=== PATIENT | female | born 1955 | race African-American/Black ===

== ENCOUNTER 2019-08-09 09:21 | Outpatient (CLI) | payer BC, SELFPAY ==
--- NOTE | 2019-08-09 09:40 | USCV_ITS ---
Ivone Tejeda Age: 64 Gender: F : 1955 Exam Date: 08/09/2019 09:55 Ordering Phys: Adri Cortes MD ([email or web address]) Technologist: Brinda Rose Exam Location: [facility] – [place] Indication: ASYMPTOMATIC BILATERAL CAROTID STENOSIS Risk Factors: Previous Vascular Surgery: None Right Brachial BP: / Left Brachial BP: / Right Left Velocity (cm/s) Spectral Plaque Velocity (cm/s) Spectral Plaque Syst/Diast Broadening Syst/Diast Broadening 78.30/ 14.30 Prox CCA 91.70 / 17.70 57.50/ 16.30 Mid CCA 60.50 / 13.10 88.85/ 21.80 Distal CCA 53.20 / 13.80 90.30/ 18.30 Prox ICA 95.70 / 28.10 90.30/ 25.40 Mid ICA 126.90/ 41.00 106.90/38.20 Distal ICA 80.60 / 31.70 109.00 ECA 114.70 1.86 ICA/CCA 2.10 Antegrade Vertebral Antegrade 60.50/ 17.10 cm/s 40.70/ 13.10 cm/s Tri Subclavian Bi 69.10 68.30 FINDINGS Moderate to heavy heterogeneous plaques the right bifurcation and proximal internal carotid carotid artery Moderate diffuse plaques of the left bifurcation and internal carotid artery Mild diffuse plaques in the common carotid arteries bilaterally Antegrade flow in the vertebral arteries bilaterally Normal Doppler flow velocities in external carotid arteries bilaterally CONCLUSIONS Moderate to heavy heterogeneous s plaques at the right bifurcation and proximal internal carotid artery with velocity elevation, consistent with a 16 to 49% stenosis Moderate to heavy heterogeneous plaques at the left bifurcation and internal carotid artery with velocity elevation, consistent with 50 to 79% stenosis Mild diffuse plaques in the common carotid arteries bilaterally. Compared to study from 03/29/2018, there may not be a significant change Dr Adri Cortes MD [facility] (Electronically Signed) Final Date: 10 August 2019 10:02 S
== END 2019-08-09 09:22 | disposition home or self-care (01) ==
LOC: RAD 09:26
PROVIDERS: Family Provider Internal Medicine; PCP Nurse Practitioner Family; Visit Provider Internal Medicine Cardiovascular Disease
DX: I65.23 Occlusion and stenosis of bilateral carotid arteries (principal)
CPT/HCPCS: 93880

== ENCOUNTER 2019-09-16 06:58 | Outpatient (RCR) | payer BC, SELFPAY ==
[2019-09-16] VITALS (12 sets, daily range): BP systolic 139–172; BP diastolic 78–104; PULSE 98–105; RESP 18; TEMP 35.6–36.9; O2SAT 100; BMI 29.0
== END 2019-10-01 23:59 | disposition home or self-care (01) ==
LOC: GILAB 06:58
PROVIDERS: Family Provider Internal Medicine; PCP Nurse Practitioner Family; Visit Provider Nurse Practitioner Family
DX: D64.9 Anemia, unspecified (principal)
CPT/HCPCS: 36415; 36430; 86850; 86900; P9016

== ENCOUNTER 2019-10-06 08:13 | Day surgery (SDC) | payer BC, SELFPAY ==
[2019-10-05 11:18] VITALS: BMI 29.0
--- NOTE | 2019-10-06 08:25 | ANES.PREANE2 ---
Pre-Anesthetic Assessment Pre-Anesthetic Assessment: Height/Weight: Height 1.68 m Weight 81.647 kg Preop Diagnosis: Anemia Proposed Procedure: Operation Date: 10/06/19 10:00 Proposed Procedures p EGD/COLON(Not Applicable) - Galen Malave MD s Colonoscopy(Not Applicable) - Galen Malave MD Was Beta Ester taken within 24 hours: Yes (scheduled to take in preop) Last Intake: 23:59 Social: Packs per day: 1/2 Pack years: 10 Comment: quit 41y of age Exam: Pre-Anes Outpt Exam: alert, oriented x 3, clear to auscultation bilaterally and regular rate & rhythm Airway: Submandibular: WNL Cervical ROM: WNL MP: 2 Dentition: Partials CV/HEM: CV/HEM: CAD, HTN and PVD Comments: rx'd x 10y stent x 2 , last last nrdrqu26/19 negative < 2 blocks to claudication in legs : Comments: proteinuria GI: GI: Hiatus hernia Metabolic: Metabolic: DM Comments: rx'd 15y, normally 170-200 Anesthetic Plan: ASA status: 3 Anesthesia: MAC PFSH Anesthesia PFSH: Social History Smoking and tobacco status: former smoker Second hand smoke exposure: No Alcohol intake: never Adopted: No Caregiver/support person: Yes Lives independently: Yes Household members: none Housing: House Marital status: Single service: No Current occupational status: disabled Current occupational exposures/hazards: No Pets and animals: No History of recent travel: No Sexually active: No Current gender identity: Female Chelita/Hindu: None Special chelita needs: No Agree to transfusion: No Financial difficulty paying for basics: Decline to Answer Data Anesthesia Cardiac Studies: No Data to Display
[2019-10-06 09:20] VITALS: BP 170/112; PULSE 81; RESP 20; TEMP 36.1; O2SAT 100
[2019-10-06] MEDS: sodium chloride 0.9% 1,000 ML 30 ML (09:23)
[2019-10-06 09:27] LABS: Glucose Point of Care 165 mg/dL (70-110)
--- NOTE | 2019-10-06 09:59 | W.PM.OPSUD ---
Surgery/Procedure H&P Update DATE OF PROCEDURE: October 06, 2019 DATE H&P PERFORMED: 10/04/19 H&P UPDATE INFORMATION: I have reviewed H&P completed within last 30 days, I have examined patient prior to procedure and No changes to prior documentation PREOP DIAGNOSIS: Anemia PLANNED PROCEDURE: Operation Date: 10/06/19 10:00 Proposed Procedures p EGD/COLON(Not Applicable) - Galen Malave MD s Colonoscopy(Not Applicable) - Galen Malave MD
[2019-10-06 10:46] VITALS: BP 152/84; PULSE 92; RESP 16; TEMP 36.4; O2SAT 94
--- NOTE | 2019-10-06 10:49 | ANE.PACU2 ---
 Inpatient post-anesthesia follow up: Airway intact: Yes Vital signs: Temperature 97.6 F Pulse Rate 92 Respiratory Rate 16 Blood Pressure 152/84 Pulse Oximetry 94 Oxygen Delivery Me thod Nasal Cannula Oxygen Flow Rate 2 Fraction of Inspir ed Oxygen Hydration adequate: Yes Nausea and vomiting: No Pain level: 1 Additional Comments: Pt to take morning HTN meds as soon as she gets home.
[2019-10-06 10:57] VITALS: BP 133/78; PULSE 84; RESP 16; O2SAT 99
== END 2019-10-06 11:05 | disposition home or self-care (01) ==
PROVIDERS: Family Provider Internal Medicine; PCP Internal Medicine; Visit Provider Surgery
PROC: 0DJ08ZZ Inspection of Upper Intestinal Tract, Via Natural or Artificial Opening Endoscopic (ICD-10-PCS; CPT 43235; principal; 2019-10-06 10:00)
PROC: 0DJD8ZZ Inspection of Lower Intestinal Tract, Via Natural or Artificial Opening Endoscopic (ICD-10-PCS; CPT 45378; 2019-10-06 10:00)
DX: D50.9 Iron deficiency anemia, unspecified (principal); Z79.82 Long term (current) use of aspirin; E13.9 Other specified diabetes mellitus without complications; Z79.84 Long term (current) use of oral hypoglycemic drugs; E78.2 Mixed hyperlipidemia; I10 Essential (primary) hypertension; Z95.1 Presence of aortocoronary bypass graft; Z82.49 Family history of ischemic heart disease and other diseases of the circulatory system; Z87.891 Personal history of nicotine dependence; I25.10 Atherosclerotic heart disease of native coronary artery without angina pectoris
CPT/HCPCS: 12345; 36416; 43235; 45378; 82962; J2704; J7030

== ENCOUNTER 2019-11-03 12:55 | Outpatient (CLI) | payer BC, SELFPAY ==
[2019-11-03 15:15] LABS: Basophils # 0.1 10^3/uL (0.0-0.1); Basophils % 1.2 %; Eosinophils # 0.2 10^3/uL (0.0-0.8); Eosinophils % 3.3 %; Hematocrit 31.5 % (37.0-47.0); Hemoglobin 8.8 g/dL (11.5-15.3); Lymphocytes % 31.2 %; Mean Corpuscular HGB Conc 27.9 g/dL (30.0-36.0); Mean Corpuscular Hemoglobin 20.5 pg (28.0-34.0); Mean Corpuscular Volume 73.4 fL (81-99); Mean Platelet Volume 9.4 fL (7.4-10.4); Monocytes # 0.4 10^3/uL (0.2-0.9); Monocytes % 6.4 %; Neutrophils # 3.7 10^3/uL (1.8-7.7); Neutrophils % 57.7 %; Nucleated Red Blood Cells % 0 %; Platelet Count 377 10^3/cmm (130-400); Red Blood Count 4.29 10^6/uL (4.1-5.3); Red Cell Distribution Width 20.8 % (12.1-15.1); White Blood Count 6.5 10^3/uL (4.0-10.0)
[2019-11-03 15:26] LABS: Alanine Aminotransferase 25 U/L (0-33); Albumin Level 4.3 g/dL (3.5-5.2); Alkaline Phosphatase 74 IU/L (35-105); Anion Gap 17.7 (5-19); Aspartate Amino Transferase 43 U/L (0-32); Blood Urea Nitrogen 13 mg/dL (8-23); Calcium 9.9 mg/dL (8.5-10.5); Carbon Dioxide 23 mmol/L (22-29); Chloride 100 mmol/L (98-107); Ferritin 10 ng/mL (15-150); Globulin 3.3 g/dL (1.3-4.6); Glomerular Filtration Rate 87.7 mL/min (90-130); Glucose 128 mg/dL (65-115); Iron 19 ug/dL (37-145); Osmolality Calculated 282 mOsm/kg (285-295); Percent Saturation 4.7 % (20-50); Potassium 3.7 mmol/L (3.5-5.1); Sodium 137 mmol/L (136-145); Total Bilirubin 0.3 mg/dL (0.15-1.2); Total Iron Binding Capacity 399 mcg/dl; Total Protein 7.6 g/dL (6.6-8.7); Unsaturated Iron Binding 380 ug/dL (112-347)
--- NOTE | 2019-11-03 16:07 | ONC CON_ITS ---
Dr. Tolentino New Patient Note Patient: Ivone Tejeda Unit #: [id number]: 1955 Dicatated By: Tiago Tolentino M.D.Date of Visit: Nov 03, 2019 Onc MED New Patient/Consult Referring Physician: Dr. GREGORY MALAVE M.D. Chief Complaint: Anemia. History of Present Illness: This is a 64 year-old woman with iron deficiency anemia. This patient has multiple medical illnesses including hypertension, hyperlipidemia, type 2 diabetes, coronary artery disease, and peripheral arterial disease. She has had varying degrees of anemia dating back to at least 2008, though several blood counts available in [facility] prior to that were normal. In 2017 her anemia was severe enough that she required transfusion. Her EGD and colonoscopy were negative at that time. At some point she also was evaluated in [place] with capsule endoscopy and subsequent to that procedure she had undergone EGD with cauterization for a possible bleeding source in the duodenum. On a follow-up visit with Dr. Rod in September 2019, her hemoglobin had dropped back down to 7.0 g. The red cell indices were hypochromic/microcytic. She was again transfused with 2 units PRBC. She reportedly had a positive stool Hemoccult. She was then seen by Dr. Malave and she had repeat EGD and colonoscopy on 10/06/2019. There were again no abnormalities noted. At some point she had also been evaluated with [place] with capsule endoscopy and subsequent to that procedure she had undergone cauterization of a lesion in the duodenum. She complains that she has no get up and go. She is still able to do light work, though. Her ECOG score is 1. She says her appetite has increased lately, but her weight has been stable. She does not have fever or night sweats. She has had some allergy related sinus symptoms and she says her throat feels funny. She has no shortness of breath, cough, or chest pain. Recently she had some heartburn and she felt very gassy, but those symptoms have improved. She has had some ongoing problems with constipation. She has had very poor tolerance for oral iron. She also has been having some discomfort in the rectal area. She has not been aware of any blood in the stool. She has no complaints with bladder function. She occasionally has aching in her joints. She reports having occasional headache. She has a little tingling on the bottoms of her feet. Past Medical History: Her medical history includes bilateral carotid stenosis, coronary artery disease, hyperlipidemia, hypertension, peripheral arterial disease, type II diabetes, and history of TIA in 2006. Past Surgical History: Her surgical/procedural history includes capsule endoscopy and duodenal cauterizaton procedure, EGD and colonoscopy in 2017 and 2019, tubal ligation, radiofrequency ablation of the right great saphenous vein in 2016, coronary angioplasty/stent placement in 2008, and hysterectomy with unilateral oophorectomy in 1983. Medications: Aspirin 1 Tablet (of 81 mg) Oral daily, Biotin 1 Tablet (of 86649 mcg) Oral daily, Byetta 10 MCG Pen 10 mcg (of 10 mcg/0.04mL) Subcutaneous b.i.d., Cilostazol 1 Tablet (of 100 mg) Oral b.i.d., Levocetirizine Dihydrochloride 1 Tablet (of 5 mg) Oral daily, Losartan Potassium 1 Tablet (of 100 mg) Oral daily, metFORMIN HCl 1 Tablet (of 1000 mg) Oral b.i.d., Metoprolol Tartrate 1 Tablet (of 25 mg) Oral b.i.d., Multivitamin Adult 1 Tablet Oral daily, Simvastatin 1 Tablet (of 40 mg) Oral at bedtime Allergies: buPROPion HCl, Januvia, and Lisinopril. Social History: Ms. Tejeda is and she is retired. She has a history of smoking for about 10 years, from 1/2 to 1 pack of cigarettes daily. She quit smoking 25 years ago. She does not drink alcohol. Family History: Father of heart attack at age 70. Mother with lung disease at age 65. A brother of lung cancer at age 60. Another brother in a motor vehicle accident. She has 1 other brother who is still living. Her daughter has diabetes. Review Of Symptoms: Constitutional - Her energy level is low. 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 Her appetite has recently increased but her weight is stable. No fever, chills, hot flashes, or night sweats. ECOG score is 1, Eyes - No change in vision, ENMT - She has not had hearing loss, but she does have tinnitus. She has occasional sinus congestion/drainage. She has seasonal allergies and sore throat. No mouth sores. No difficulty swallowing, Hematologic/Lymphatic - No abnormal bruising, Respiratory - No shortness of breath. No cough. No pleuritic pain or hemoptysis, Cardiovascular - No angina pain. No palpitations, Gastrointestinal - No nausea or vomiting. She had some heartburn a few weeks ago along with some bloating. No diarrhea. She has constipation. No blood in the stool or black stools, Genitourinary (F) - No dysuria or hematuria. No urinary frequency. No urgency or incontinence, Musculoskeletal - She has some occasional aching in her joints, Integumentary - No skin complications, Neurologic - She has occasional headaches. No dizziness. She has some tingling on the bottoms of her feet, Psychiatric - No anxiety. She has some mild depression. She is not currently taking anything for this. She has some occasional insomnia. Vital Signs: Performed on Nov 03, 2019 14:10: 0, 28.50, 1.90 sq.m, 66.00 in, 100 %, 89 /min, 18 /min, 132/77 mm(hg), 97.6 F (LOW), and 176.6 lbs (HIGH). Physical Examination: Constitutional - She appears to be in good general health, Eyes - Sclerae nonicteric. Conjunctivae clear, ENMT - No lesions noted in the oral cavity, Neck - No mass or thyromegaly, Hematologic/Lymphatic - No cervical, clavicular, or axillary adenopathy, Respiratory - Lungs are clear with good air movement bilaterally, Cardiovascular - Heart rhythm is regular. There is a I/ systolic murmur. There is no gallop or rub noted, Abdomen - Soft and non-tender. Liver and spleen are not enlarged. There is no abdominal mass or ascites noted and there is no inguinal adenopathy, Genitalia/Groin/Buttock (F) - Rectal exam shows some small, noninflamed external hemorrhoids. There is no rectal mass noted, Back/Spine - No spine or CVA tenderness noted, Extremities - No edema. Dorsalis pedis pulses are palpable bilaterally, Integumentary - No rashes. No suspicious skin lesions noted, Neurologic - No focal neurologic deficits noted. Impression: 1. Patient with iron deficiency anemia. She reportedly has heme positive stool, so at least some component does appear to be due to GI blood loss. It is uncertain to what extent and adequate oral iron absorption may also be contributing. She does have poor tolerance for oral iron supplements. 2. There has been no documented source for GI blood loss by EGD/colonoscopy or by capsule endoscopy. Her other medical illnesses include: 3. Hypertension. 4. Hyperlipidemia. 5. Type 2 diabetes. 6. Coronary artery disease with previous angioplasty/stent placement. 7. Bilateral carotid stenosis. 8. Peripheral arterial disease. 9. She has a history of TIA in 2006. Plan: The laboratory findings and clinical implications were reviewed with the patient. She has iron deficiency anemia, most likely due to GI blood loss. It is uncertain to what extent inadequate oral iron absorption may also be contributing, but in any case she has poor tolerance for oral iron supplements and she has been unable to correct the iron deficiency with oral iron replacement. As such, she will be given parenteral iron replacement with 2 infusions of Injectafer, subject to verification of insurance coverage. I will check baseline CBC and serum iron studies today and I will plan to schedule I month follow-up labs following completion of the parenteral iron replacement. Signed By: Tiago Tolentino M.D. <<Signature on File>>
== END 2019-11-03 12:56 | disposition home or self-care (01) ==
LOC: ONCMED 12:57
PROVIDERS: Internal Medicine Medical Oncology; Family Provider Internal Medicine; PCP Internal Medicine; Referring Provider Surgery; Visit Provider Internal Medicine Hematology & Oncology
DX: D50.9 Iron deficiency anemia, unspecified (principal); I10 Essential (primary) hypertension; E78.5 Hyperlipidemia, unspecified; E11.51 Type 2 diabetes mellitus with diabetic peripheral angiopathy without gangrene; I25.10 Atherosclerotic heart disease of native coronary artery without angina pectoris; E11.42 Type 2 diabetes mellitus with diabetic polyneuropathy; I65.23 Occlusion and stenosis of bilateral carotid arteries; Z79.82 Long term (current) use of aspirin; Z79.4 Long term (current) use of insulin; Z79.899 Other long term (current) drug therapy; Z95.5 Presence of coronary angioplasty implant and graft; Z87.891 Personal history of nicotine dependence; Z86.73 Personal history of transient ischemic attack (TIA), and cerebral infarction without residual deficits; Z90.710 Acquired absence of both cervix and uterus
CPT/HCPCS: 36415; 80053; 82728; 83540; 83550; 85025; 99205

== ENCOUNTER 2019-11-09 13:41 | Outpatient (CLI) | payer BC, SELFPAY ==
[2019-11-09] MEDS: sodium chloride 0.9% 100 ML 400 ML (14:10)
== END 2019-11-09 13:42 | disposition home or self-care (01) ==
PROVIDERS: Family Provider Internal Medicine; PCP Internal Medicine; Visit Provider Internal Medicine Medical Oncology
DX: D50.9 Iron deficiency anemia, unspecified (principal)
CPT/HCPCS: 96365; J1439

== ENCOUNTER 2019-11-16 07:13 | Outpatient (RCR) | payer BC, SELFPAY ==
[2019-11-16] MEDS: ferric carboxy (PYXIS) 750 mg/15 mL INJ IV (16:05)
[2019-11-16] MEDS: sodium chloride 0.9% 100 ML 200 ML IV (16:05)
== END 2019-12-01 23:59 | disposition home or self-care (01) ==
LOC: ONCMED 07:13
PROVIDERS: Family Provider Internal Medicine; PCP Internal Medicine; Visit Provider Internal Medicine Medical Oncology
DX: D50.9 Iron deficiency anemia, unspecified (principal); I65.23 Occlusion and stenosis of bilateral carotid arteries; I25.10 Atherosclerotic heart disease of native coronary artery without angina pectoris; E78.5 Hyperlipidemia, unspecified; I10 Essential (primary) hypertension; I73.9 Peripheral vascular disease, unspecified; E11.9 Type 2 diabetes mellitus without complications
CPT/HCPCS: 96365; J1439

== ENCOUNTER 2019-12-23 06:46 | Outpatient (RCR) | payer BC, SELFPAY ==
[2019-12-22 10:14] LABS: Basophils % 0.9 %; Eosinophils # 0.1 10^3/uL (0.0-0.8); Eosinophils % 1.9 %; Hematocrit 40.1 % (37.0-47.0); Hemoglobin 11.9 g/dL (11.5-15.3); Lymphocytes # 1.3 10^3/uL (0.8-4.8); Lymphocytes % 30.9 %; Mean Corpuscular HGB Conc 29.7 g/dL (30.0-36.0); Mean Corpuscular Hemoglobin 25.5 pg (28.0-34.0); Mean Corpuscular Volume 86.1 fL (81-99); Mean Platelet Volume 9.4 fL (7.4-10.4); Monocytes # 0.2 10^3/uL (0.2-0.9); Monocytes % 4.9 %; Neutrophils # 2.6 10^3/uL (1.8-7.7); Neutrophils % 61.2 %; Nucleated Red Blood Cells % 0 %; Platelet Count 297 10^3/cmm (130-400); Red Blood Count 4.66 10^6/uL (4.1-5.3); Red Cell Distribution Width 26.1 % (12.1-15.1); White Blood Count 4.3 10^3/uL (4.0-10.0)
[2019-12-22 10:28] LABS: Ferritin 230 ng/mL (15-150); Iron 53 ug/dL (37-145); Percent Saturation 18.5 % (20-50); Total Iron Binding Capacity 286 mcg/dl; Unsaturated Iron Binding 233 ug/dL (112-347)
== END 2020-01-01 23:59 | disposition home or self-care (01) ==
LOC: ONCMED 06:46
PROVIDERS: PCP Internal Medicine; Visit Provider Internal Medicine Medical Oncology
DX: D50.9 Iron deficiency anemia, unspecified (principal)
CPT/HCPCS: 36415; 82728; 83540; 83550; 85025

== ENCOUNTER 2020-01-09 05:51 | Outpatient (RCR) | payer BC, SELFPAY ==
[2020-01-09 12:27] LABS: Basophils % 0.9 %; Eosinophils # 0.1 10^3/uL (0.0-0.8); Hemoglobin 11.8 g/dL (11.5-15.3); Lymphocytes # 1.5 10^3/uL (0.8-4.8); Lymphocytes % 33.7 %; Mean Corpuscular HGB Conc 30.3 g/dL (30.0-36.0); Mean Corpuscular Hemoglobin 26.6 pg (28.0-34.0); Mean Corpuscular Volume 87.8 fL (81-99); Monocytes # 0.2 10^3/uL (0.2-0.9); Monocytes % 5.4 %; Neutrophils # 2.6 10^3/uL (1.8-7.7); Nucleated Red Blood Cells % 0 %; Platelet Count 287 10^3/cmm (130-400); Red Blood Count 4.44 10^6/uL (4.1-5.3); White Blood Count 4.5 10^3/uL (4.0-10.0)
[2020-01-09 12:57] LABS: Ferritin 156 ng/mL (15-150); Iron 47 ug/dL (37-145); Percent Saturation 19.3 % (20-50); Total Iron Binding Capacity 243 mcg/dl; Unsaturated Iron Binding 196 ug/dL (112-347)
--- NOTE | 2020-01-09 14:19 | ONC FU_ITS ---
[facility] Patient Note Patient: Ivone Tejeda Unit #: [id number]: 1955 Dictated By: Pierre LindaDate of Visit: Jan 09, 2020 Onc MED Follow-Up/Prog Note Chief Complaint: Anemia. History of Present Illness: Ms Tejeda is a 64 year-old woman with iron deficiency anemia. She has multiple medical illnesses including hypertension, hyperlipidemia, type 2 diabetes, coronary artery disease, and peripheral arterial disease. She has had varying degrees of anemia dating back to at least 2008, though several blood counts available in [facility] prior to that were normal. In 2017 her anemia was severe enough that she required transfusion. Her EGD and colonoscopy were negative at that time. At some point she also was evaluated in [place] with capsule endoscopy and subsequent to that procedure she had undergone EGD with cauterization for a possible bleeding source in the duodenum. On a follow-up visit with Dr. Rod in September 2019, her hemoglobin had dropped back down to 7.0 g. The red cell indices were hypochromic/microcytic. She was again transfused with 2 units PRBC. She reportedly had a positive stool Hemoccult. She was then seen by Dr. Malave and she had repeat EGD and colonoscopy on 10/06/2019. There were again no abnormalities noted. At some point she had also been evaluated with [place] with capsule endoscopy and subsequent to that procedure she had undergone cauterization of a lesion in the duodenum. Ms. Tejeda was seen in November 2019. She presented with significant fatigue and some shortness of breath. She was noted to be iron deficient and anemic. Her hemoglobin at that time was 8.8 with hematocrit of 31.5. Her iron saturation was 4.7%, ferritin was 10 and iron level was 19. She was given 2 units of Injectafer 1 week apart. Follow-up labs on December 22, 2019 revealed a hemoglobin of 11.9 and her iron studies had also improved. Her saturation was 18.5% ferritin was 230 and iron was 53. She tolerated the Injectafer well. Ms. Tejeda is here today for a 2-month follow-up. She states overall she is feeling really good. She is had no shortness of breath. She denies any cravings. She states in the past she is craving ice significantly but since I started seeing Dr. Tolentino that has stopped . She denies any worsening fatigue. She states her actually her energy is some better. She has had no chest pain orthopnea. She states she is able to do things around the house. Her appetite is good. Her ECOG is 0. Past Medical History: Bilateral carotid stenosis Coronary artery disease Hyperlipidemia Hypertension Peripheral arterial disease Type II diabetes History of TIA in 2006 Past Surgical History: Capsule endoscopy and duodenal cauterizaton procedure EGD and colonoscopy in 2017 and 2019 Tubal ligation Radiofrequency ablation of the right great saphenous vein in 2016 Coronary angioplasty/stent placement in 2008 Hysterectomy with unilateral oophorectomy in 1983 Allergies: buPROPion HCl, Januvia, and Lisinopril. Medications: Aspirin 1 Tablet (of 81 mg) Oral daily Biotin 1 Tablet (of 59332 mcg) Oral daily Byetta 10 MCG Pen 10 mcg (of 10 mcg/0.04mL) Subcutaneous b.i.d. Cilostazol 1 Tablet (of 100 mg) Oral b.i.d. Levocetirizine Dihydrochloride 1 Tablet (of 5 mg) Oral daily Losartan Potassium 1 Tablet (of 100 mg) Oral daily Metoprolol Tartrate 1 Tablet (of 25 mg) Oral b.i.d. Multivitamin Adult 1 Tablet Oral daily Simvastatin 1 Tablet (of 40 mg) Oral at bedtime Family History: Ms. Tejeda's mother at age 65: lung disease. Ms. Tejeda's father at age 70: coronary artery disease, and hypertension, and myocardial infarction. Ms. Tejeda has 1 brother who is : lung cancer. Father of heart attack at age 70. Mother with lung disease at age 65. A brother of lung cancer at age 60. Another brother in a motor vehicle accident. She has 1 other brother who is still living. Her daughter has diabetes. Social History: Ms. Tejeda is single and she is retired. Ms. Tejeda quit smoking 25 years ago but had smoked for 12 years. She has no history of drinking. Ms. Tejeda reports the following support systems: lives alone, supportive family/friends willing to assist with needs, and adequate transportation available for expected visits. Her diet consists of regular meals. She indicates her activity level as: regular exercise. She has a history of smoking for about 10 years, from 1/2 to 1 pack of cigarettes daily. She quit smoking 25 years ago. She does not drink alcohol. Review Of Symptoms: Constitutional Denies fevers, chills, night sweats, excessive fatigue or weight loss. Allergic/Immunologic No reactions. Eyes Denies significant visual changes. No diplopia. No amaurosis. Hematologic/Lymphatic Denies easy bruising or bleeding. The patient denies any tender or palpable lymph nodes. Respiratory Denies dyspnea on exertion, chest pain, cough or hemoptysis. Denies orthopnea. Cardiovascular Denies anginal chest pain, palpitations or orthopnea. Gastrointestinal Denies nausea, vomiting, diarrhea, GI bleeding, or constipation. Denies change in bowel habits and/or stool color, no heartburn or early satiety. Genitourinary (F) No hematuria, hesitancy, incontinence, vaginal bleeding, discharge or other problems with urination. Musculoskeletal Denies joint pain, swelling or redness. No decreased range of motion. Integumentary Denies chronic rashes, inflammation, ulcerations or skin changes. Neurologic Denies headache, blurred vision, and no areas of focal weakness or numbness. Normal gait. No sensory problems. Psychiatric Denies insomnia, depression, amish or mood swings. Vital Signs: Performed on Jan 09, 2020 13:27 Height - 66.00 in Weight - 175.2 lbs (LOW) BSA - 1.89 sq.m BMI - 28.28 Temperature - 98.2 F (LOW) Pulse - 82 /min Respiration - 18 /min BP - 133/82 mm(hg) O2 Sat - 98 % Pain - 0,0 - Fully active, able to carry on all predisease activities without restrictions. (ECOG) Physical Examination: Constitutional Alert, oriented, no acute distress. Skin pink, warm and dry. Head Normocephalic; atraumatic. Eyes Conjunctivae and sclerae are clear and without icterus. Pupils are reactive and equal. Neck Supple without masses or thyromegaly. No jugular venous distension. Hematologic/Lymphatic No petechiae or purpura. No tender or palpable lymph nodes in the cervical or supraclavicular areas. Respiratory Lungs are clear to auscultation without rhonchi or wheezing. Cardiovascular Regular rate and rhythm of heart without murmurs,clicks, gallops or rubs. Back/Spine Non-tender to palpation. Extremities No visible deformities, no cyanosis, clubbing or edema. Musculoskeletal No tenderness or swelling, normal range of motion without obvious weakness. Integumentary No rashes or lesions. Neurologic No sensory or motor deficits, normal cerebellar function, normal gait. Psychiatric Alert and oriented times three. Coherent speech. Verbalizes understanding of our discussions today. Laboratory:Test performed on Jan 09, 2020 12:05 Ferritin 156 ng/mL Iron 47 mcg/dL Iron Binding Capacity (TIBC) 243 mcg/dl % Iron Saturation 19.3 % UIBC 196 mcg/dL WBC 4.5 10 3/uL RBC 4.44 10 6/uL HGB 11.8 g/dL HCT 39.0 % MCV 87.8 fL MCH 26.6 pg MCHC 30.3 g/dL RDW 22.0 % Platelet Count 287 10 3/cmm MPV 10.0 fL Neutrophils 2.6 10 3/uL Lymphocytes 1.5 10 3/uL Monocytes 0.2 10 3/uL Eosinophils 0.1 10 3/uL Basophils 0.0 10 3/uL Neutrophil % 58.0 % Lymphocyte % 33.7 % Monocyte % 5.4 % Eosinophil % 2.0 % Basophils % 0.9 % NRBC 0.0 /100WBC NRBC % 0 % Test performed on Nov 03, 2019 14:45 Sodium 137 mmol/L Potassium 3.7 mmol/L Chloride 100 mmol/L CO2 23 mmol/L Anion Gap 17.7 BUN 13 mg/dL Creatinine 0.8 mg/dL Cr Clearance (Est) 91.0200 mL/min eGFR 87.7 mL/min Glucose 128 mg/dL Calcium 9.9 mg/dL Protein, Total 7.6 g/dL Albumin 4.3 g/dL Globulin 3.3 g/dL Bilirubin, Total 0.3 mg/dL ALT (SGPT) 25 U/L AST (SGOT) 43 U/L Alkaline Phosphatase 74 IU/L Impression: 1. Patient with iron deficiency anemia. She reportedly has heme positive stool, so at least some component does appear to be due to GI blood loss. It is uncertain to what extent and adequate oral iron absorption may also be contributing. She does have poor tolerance for oral iron supplements. 2. There has been no documented source for GI blood loss by EGD/colonoscopy or by capsule endoscopy. Her other medical illnesses include: 3. Hypertension. 4. Hyperlipidemia. 5. Type 2 diabetes. 6. Coronary artery disease with previous angioplasty/stent placement. 7. Bilateral carotid stenosis. 8. Peripheral arterial disease. 9. She has a history of TIA in 2006. In November 2019 she was found to be iron deficient anemic once again. She received 2 doses of Injectafer 1 week apart. Her labs from December did show correction of the iron deficiency anemia. She tolerated it well. Her hemoglobin remained stable at 11.8 and her iron studies are normal as well. She will continue on observation. Plan: 1. Iron decificeny is currently corrected, but there is some trend down on her Ferritin and Iron levels. Her iron sat is stable @ 19.3%. 2. Today's labs were reviewed in detail and discussed with Ms. Tejeda and a copy was given to her. WBC was 4.5, hemoglobin 11.8, platelets 287,000 ANC is 2600. Iron saturation was 19.3%, ferritin was 156 iron was 47. 3. Ms. Tejeda states that her symptoms of the iron deficiency have been significant fatigue and mildly short of breath. She states she can generally tell when that her labs are starting to drop. 4. We will plan to recheck CBC CMP (her AST was 43 on November 03, 2019 draw), and iron studies to include ferritin and TIBC in 1 month. She will not need follow-up at that time unless symptoms or problems arise in the interim. 5. We will plan to see her back in 2 months with a CBC CMP and iron studies. 6. Ms. Tejeda has been advised to contact us in the interim should she feel that she is starting to have any iron deficiency/anemic symptoms. We will be glad to check her at any time. She was encouraged to call if she has any problems or concerns. Signed By: Pierre Linda-BARRON, AOAMILCAR Tolentino MD <<Signature on File>>
== END 2020-01-31 23:59 | disposition home or self-care (01) ==
LOC: ONCMED 05:51
PROVIDERS: PCP Internal Medicine; Visit Provider Internal Medicine Medical Oncology
DX: D50.9 Iron deficiency anemia, unspecified (principal); I10 Essential (primary) hypertension; E78.5 Hyperlipidemia, unspecified; E11.9 Type 2 diabetes mellitus without complications; I25.10 Atherosclerotic heart disease of native coronary artery without angina pectoris; I73.9 Peripheral vascular disease, unspecified; I65.23 Occlusion and stenosis of bilateral carotid arteries; Z86.73 Personal history of transient ischemic attack (TIA), and cerebral infarction without residual deficits
CPT/HCPCS: 36415; 82728; 83540; 83550; 85025; G0463

== ENCOUNTER 2020-02-10 09:55 | Outpatient (RCR) | payer BC, SELFPAY ==
[2020-02-10 10:18] LABS: Basophils # 0.1 10^3/uL (0.0-0.1); Basophils % 1.1 %; Eosinophils # 0.1 10^3/uL (0.0-0.8); Eosinophils % 2.3 %; Hematocrit 38.5 % (37.0-47.0); Hemoglobin 11.8 g/dL (11.5-15.3); Lymphocytes # 1.9 10^3/uL (0.8-4.8); Lymphocytes % 38.9 %; Mean Corpuscular HGB Conc 30.6 g/dL (30.0-36.0); Mean Corpuscular Hemoglobin 27.1 pg (28.0-34.0); Mean Corpuscular Volume 88.3 fL (81-99); Mean Platelet Volume 9.1 fL (7.4-10.4); Monocytes # 0.3 10^3/uL (0.2-0.9); Monocytes % 5.5 %; Neutrophils # 2.48 10^3/uL (1.8-7.7); Neutrophils % 52.2 %; Nucleated Red Blood Cells % 0 %; Platelet Count 294 10^3/cmm (130-400); Red Blood Count 4.36 10^6/uL (4.1-5.3); Red Cell Distribution Width 17.6 % (12.1-15.1); White Blood Count 4.8 10^3/uL (4.0-10.0)
[2020-02-10 10:29] LABS: Alanine Aminotransferase 66 U/L (0-33); Albumin Level 4.3 g/dL (3.5-5.2); Alkaline Phosphatase 102 IU/L (35-105); Anion Gap 14.1 (5-19); Aspartate Amino Transferase 82 U/L (0-32); Blood Urea Nitrogen 13 mg/dL (8-23); Calcium 10.2 mg/dL (8.5-10.5); Carbon Dioxide 25 mmol/L (22-29); Chloride 103 mmol/L (98-107); Globulin 3.5 g/dL (1.3-4.6); Glomerular Filtration Rate 87.7 mL/min (90-130); Glucose 216 mg/dL (65-115); Osmolality Calculated 289 mOsm/kg (285-295); Potassium 4.1 mmol/L (3.5-5.1); Sodium 138 mmol/L (136-145); Total Bilirubin 0.2 mg/dL (0.15-1.2); Total Protein 7.8 g/dL (6.6-8.7)
[2020-02-10 10:55] LABS: Ferritin 156 ng/mL (15-150); Iron 50 ug/dL (37-145); Percent Saturation 17.1 % (20-50); Total Iron Binding Capacity 291 mcg/dl; Unsaturated Iron Binding 241 ug/dL (112-347)
== END 2020-03-02 23:59 | disposition home or self-care (01) ==
LOC: ONCMED 09:55
PROVIDERS: PCP Internal Medicine; Visit Provider Nurse Practitioner
DX: D50.9 Iron deficiency anemia, unspecified (principal)
CPT/HCPCS: 80053; 82728; 83540; 83550; 85025

== ENCOUNTER 2020-03-13 06:11 | Outpatient (RCR) | payer BC, SELFPAY ==
[2020-03-13 09:39] LABS: Basophils # 0.1 10^3/uL (0.0-0.1); Basophils % 1.2 %; Eosinophils # 0.1 10^3/uL (0.0-0.8); Eosinophils % 2.1 %; Hematocrit 40.7 % (37.0-47.0); Hemoglobin 12.4 g/dL (11.5-15.3); Lymphocytes # 1.7 10^3/uL (0.8-4.8); Lymphocytes % 39.1 %; Mean Corpuscular HGB Conc 30.5 g/dL (30.0-36.0); Mean Corpuscular Volume 88.5 fL (81-99); Mean Platelet Volume 9.6 fL (7.4-10.4); Monocytes # 0.2 10^3/uL (0.2-0.9); Monocytes % 4.7 %; Neutrophils # 2.22 10^3/uL (1.8-7.7); Neutrophils % 52.7 %; Nucleated Red Blood Cells % 0 %; Platelet Count 263 10^3/cmm (130-400); Red Cell Distribution Width 14.4 % (12.1-15.1); White Blood Count 4.2 10^3/uL (4.0-10.0)
[2020-03-13 10:05] LABS: Alanine Aminotransferase 40 U/L (0-33); Albumin Level 4.1 g/dL (3.5-5.2); Alkaline Phosphatase 96 IU/L (35-105); Anion Gap 14.9 (5-19); Aspartate Amino Transferase 64 U/L (0-32); Blood Urea Nitrogen 16 mg/dL (8-23); Calcium 9.1 mg/dL (8.5-10.5); Carbon Dioxide 25 mmol/L (22-29); Chloride 102 mmol/L (98-107); Ferritin 135 ng/mL (15-150); Globulin 3.9 g/dL (1.3-4.6); Glomerular Filtration Rate 76.5 mL/min (90-130); Glucose 268 mg/dL (65-115); Iron 63 ug/dL (37-145); Osmolality Calculated 292 mOsm/kg (285-295); Percent Saturation 21.2 % (20-50); Potassium 3.9 mmol/L (3.5-5.1); Sodium 138 mmol/L (136-145); Total Bilirubin 0.3 mg/dL (0.15-1.2); Total Iron Binding Capacity 296 mcg/dl; Unsaturated Iron Binding 233 ug/dL (112-347)
--- NOTE | 2020-03-13 11:03 | ONC FU_ITS ---
Dr. Tolentino Patient Follow-Up Note Patient: Ivone Tejeda Unit #: [id number]: 1955 Dicatated By: Tiago Tolentino M.D.Date of Visit:Mar 13, 2020 Onc Med Follow-up/Prog Note Chief Complaint: Anemia. History of Present Illness: This is a 64 year-old woman with iron deficiency anemia. She has a known history of anemia. I had seen her initially on 11/03/2019. In reviewing her records, she had varying degrees of anemia dating back to at least 2008, though several blood counts available in [facility] prior to that had been normal. In 2017 her anemia was severe enough that she required transfusion. Her EGD and colonoscopy were negative at that time. On a follow-up visit with Dr. Rod in September 2019, her hemoglobin had dropped back down to 7.0 g. The red cell indices were hypochromic/microcytic. She was again transfused with 2 units PRBC. She reportedly had a positive stool Hemoccult. She was then seen by Dr. Malave and she had repeat EGD and colonoscopy on 10/06/2019. There were again no abnormalities noted. At some point she had also been evaluated with [facility] with capsule endoscopy and subsequent to that procedure she had undergone cauterization of a lesion in the duodenum. With her visit in November 2019 she was still significantly anemic, hemoglobin 8.8 g, and her red cell indices were hypochromic/microcytic. Her serum iron studies show low transferrin saturation at 4.7% with ferritin also low at 10 ng/mL, consistent with iron deficiency. As she had poor tolerance for oral iron supplements, she was given parenteral iron replacement with 2 infusions of Injectafer, which she tolerated well. At her follow-up visit on 01/09/2020 she was still slightly anemic, hemoglobin 11.8 g. Her transferrin saturation was just slightly low at 19.3% with ferritin normal at 156 ng/mL. Her other medical illnesses include hypertension, hyperlipidemia, type 2 diabetes, coronary artery disease, bilateral carotid stenosis, and peripheral arterial disease. She has history of TIA in 2006. She had smoked in the past, for about 10 years, but she quit smoking 25 years ago. She is seen for a follow-up visit. She has been feeling pretty good generally. She has had improvement in her energy/activity tolerance following the parenteral iron, though she does not feel that her activity is completely back to normal. Her ECOG score is 1. She says she still sometimes gets lightheaded/off balance. She is no longer craving ice. Her appetite is good. She has no fever or night sweats. Her mouth occasionally gets sore. She has no shortness of breath, cough, or chest pain. She has no GI/ complaints other than she still gets diarrhea quite a bit. She has some stiffness in her joints. She does not complain of headache. She occasionally has numbness in her feet. Medications: Aspirin 1 Tablet (of 81 mg) Oral daily, Byetta 10 MCG Pen 10 mcg (of 10 mcg/0.04mL) Subcutaneous b.i.d., Cilostazol 1 Tablet (of 100 mg) Oral b.i.d., Levocetirizine Dihydrochloride 1 Tablet (of 5 mg) Oral daily, Losartan Potassium 1 Tablet (of 100 mg) Oral daily, metFORMIN HCl 1 Tablet (of 1000 mg) Oral b.i.d., Metoprolol Tartrate 1 Tablet (of 25 mg) Oral b.i.d., Multivitamin Adult 1 Tablet Oral daily, Simvastatin 1 Tablet (of 40 mg) Oral at bedtime Allergies: buPROPion HCl, Januvia, and Lisinopril. Review of Systems: Constitutional - She has mostly normal activity, though she does have a few restrictions. Her appetite is good and her weight is down about 3 pounds from last visit. No fever, night sweats, or hot flashes. ECOG score is 1, ENMT - No sinus congestion/drainage. She occasional gets mouth sores, denies any at today's visit. No sore throat or difficulty swallowing, Hematologic/Lymphatic - No abnormal bruising or bleeding, Respiratory - No shortness of breath. No cough. No pleuritic pain or hemoptysis, Cardiovascular - No angina pain. No palpitations, Gastrointestinal - No nausea or vomiting. No heartburn or acid reflux. She sometimes has diarrhea. No constipation. No blood in the stool or black stools, Genitourinary (F) - No dysuria or hematuria. No urinary frequency. No urgency or incontinence, Musculoskeletal - She has generalized joint stiffness, Integumentary - No skin complications, Neurologic - No headache. She still sometimes gets lightheaded/off balance. She occasionally has numbness in her feet. No other focal neurologic symptoms, Psychiatric - She has some mild anxiety. No depression. No insomnia. Vital Signs: Performed on Mar 13, 2020 10:27 Height - 66.00 in Weight - 172.0 lbs (LOW) BSA - 1.88 sq.m BMI - 27.76 Temperature - 97.5 F (LOW) Pulse - 105 /min (HIGH) Respiration - 18 /min BP - 118/67 mm(hg) O2 Sat - 98 % Pain - 0 Physical Examination: Constitutional - She looks good generally, Eyes - Sclerae nonicteric. Conjunctivae clear, ENMT - No lesions noted in the oral cavity, Hematologic/Lymphatic - No cervical, clavicular, or axillary adenopathy, Respiratory - Lungs are clear with good air movement bilaterally, Cardiovascular - Heart rhythm is regular. There is no murmur, gallop, or rub noted, Abdomen - Soft. She is slgihtly tender in the upper abdomen. Liver and spleen are not enlarged. There is no abdominal mass or ascites noted and there is no inguinal adenopathy, Extremities - No edema, Neurologic - No focal neurologic deficits noted. Lab/Imaging: Test performed on Mar 13, 2020 09:15 Ferritin 135 ng/mL Iron 63 mcg/dL Sodium 138 mmol/L Iron Binding Capacity (TIBC) 296 mcg/dl Potassium 3.9 mmol/L % Iron Saturation 21.2 % Chloride 102 mmol/L CO2 25 mmol/L UIBC 233 mcg/dL Anion Gap 14.9 BUN 16 mg/dL Creatinine 0.9 mg/dL Cr Clearance (Est) 78.80 mL/min eGFR 76.5 mL/min Glucose 268 mg/dL Calcium 9.1 mg/dL Protein, Total 8.0 g/dL Albumin 4.1 g/dL Globulin 3.9 g/dL Bilirubin, Total 0.3 mg/dL ALT (SGPT) 40 U/L AST (SGOT) 64 U/L Alkaline Phosphatase 96 IU/L WBC 4.2 10 3/uL RBC 4.60 10 6/uL HGB 12.4 g/dL HCT 40.7 % MCV 88.5 fL MCH 27.0 pg MCHC 30.5 g/dL RDW 14.4 % Platelet Count 263 10 3/cmm MPV 9.6 fL Neutrophils 2.22 10 3/uL Lymphocytes 1.7 10 3/uL Monocytes 0.2 10 3/uL Eosinophils 0.1 10 3/uL Basophils 0.1 10 3/uL Neutrophil % 52.7 % Lymphocyte % 39.1 % Monocyte % 4.7 % Eosinophil % 2.1 % Basophils % 1.2 % NRBC % 0 % Test performed on Jan 09, 2020 12:05 NRBC 0.0 /100WBC Impression: 1. Patient with iron deficiency anemia. She reportedly has heme positive stool, so at least some component appeared to be due to GI blood loss. Inadequate oral iron absorption was also likely contributing. She had poor tolerance for oral iron supplements. 2. There was no documented source for GI blood loss by EGD/colonoscopy or by capsule endoscopy. Her other medical illnesses include: 3. Hypertension. 4. Hyperlipidemia. 5. Type 2 diabetes. 6. Coronary artery disease with previous angioplasty/stent placement. 7. Bilateral carotid stenosis. 8. Peripheral arterial disease. 9. She has a history of TIA in 2006. Following her initial visit here in November 2019 she was given parenteral iron replacement with 2 infusions of Injectafer. She tolerated the parenteral iron well, and she has had a very good clinical response. Plan: She can be followed on observation/expectant management for the anemia. At this point she will continue her regular follow-up with Shana Harper. I will just plan to see her again as needed. Signed By: Tiago Tolentino M.D. <<Signature on File>>
== END 2020-04-02 23:59 | disposition home or self-care (01) ==
LOC: ONCMED 06:11
PROVIDERS: PCP Internal Medicine; Visit Provider Internal Medicine Medical Oncology
DX: D50.9 Iron deficiency anemia, unspecified (principal); K92.1 Melena; I10 Essential (primary) hypertension; E78.5 Hyperlipidemia, unspecified; I25.10 Atherosclerotic heart disease of native coronary artery without angina pectoris; I65.29 Occlusion and stenosis of unspecified carotid artery; E11.51 Type 2 diabetes mellitus with diabetic peripheral angiopathy without gangrene; Z79.84 Long term (current) use of oral hypoglycemic drugs; Z86.73 Personal history of transient ischemic attack (TIA), and cerebral infarction without residual deficits
CPT/HCPCS: 80053; 82728; 83540; 83550; 85025; G0463

== ENCOUNTER 2020-03-29 10:03 | Outpatient (CLI) | payer BC, SELFPAY ==
--- NOTE | 2020-03-29 10:07 | MM_ITS ---
WS: [id number] BILATERAL SCREENING DIGITAL MAMMOGRAM WITH CAD HISTORY: SCREENING COMPARISON: 12/21/2018 and 11/26/2017 Bilateral CC and MLO views submitted. Computer aided detection analyzed. Breast composition: There are scattered areas of fibroglandular density. No suspicious masses, microc alcifications or architectural distortion. Benign calcifications within each breast. MM/[id number] IMPRESSION: BI-RADS: 2-Benign FOLLOW UP: 1 Year Follow-up
== END 2020-03-29 10:04 | disposition home or self-care (01) ==
LOC: RADSHAW 10:05
PROVIDERS: PCP Nurse Practitioner Family; Visit Provider Nurse Practitioner Family
DX: Z12.31 Encounter for screening mammogram for malignant neoplasm of breast (principal)
CPT/HCPCS: 77067

== ENCOUNTER → 2020-04-30 11:40 | Outpatient (BNVA) | payer BC, SELFPAY | PROVIDERS: PCP Nurse Practitioner Family; Visit Provider Nurse Practitioner Family | DX: J06.9 Acute upper respiratory infection, unspecified (principal); Z20.828 Contact with and (suspected) exposure to other viral communicable diseases | CPT/HCPCS: 87635 ==

== ENCOUNTER 2020-10-04 10:20 | Outpatient (CLI) | payer OTHER, SELFPAY ==
--- NOTE | 2020-10-04 10:39 | XR_ITS ---
WS: [id number] Lumbar spine, 5 views including obliques, 10/04/2020 Clinical Data: LUMBAGO W/SCIATICA R SIDE Comparison: None. Findings: No compression fractures or subluxation is seen. No disc space narrowing is seen. The transverse proc esses and SI joints are normal. There is osteoarthritic spurring of the vertebral bodies L3, L4 and L 5. On the oblique films no spondylolysis is seen. There is calcification of the wall of the abdominal ao rta but no aneurysm. There are numerous phleboliths in the true pelvis. Calcifications are overlying the region of the left kidney but they may be within the colon. XR/XR lumbar spine min 4V [id number] Impression: 1 mild osteoarthritis of L3-L5. 2. Calcifications overlying left kidney which are not definitely renal.
== END 2020-10-04 10:21 | disposition home or self-care (01) ==
PROVIDERS: PCP Nurse Practitioner Family; Visit Provider Nurse Practitioner Family
DX: M54.41 Lumbago with sciatica, right side (principal); M47.816 Spondylosis without myelopathy or radiculopathy, lumbar region; N20.0 Calculus of kidney
CPT/HCPCS: 72110

== ENCOUNTER 2020-10-10 07:34 | Outpatient (CLI) | payer OTHER, SELFPAY ==
--- NOTE | 2020-10-10 08:00 | USCV_ITS ---
Ivone Tejeda Age: 65 Gender: F : 1955 Exam Date: 10/10/2020 08:01 Ordering Phys: Adri Cortes MD ([email or web address]) Technologist: Chriss Sow Exam Location: [facility] [place] Indication: OCCLUSION AND STENOSIS OF CAROTID Risk Factors: Previous Vascular Surgery: Right Brachial BP: / Left Brachial BP: / Right Left Velocity (cm/s) Spectral Plaque Velocity (cm/s) Spectral Plaque Syst/Diast Broadening Syst/Diast Broadening 80.00/ 11.70 Prox CCA 94.40 / 18.50 78.50/ 14.80 Mid CCA 61.50 / 17.10 45.10/ 13.20 Distal CCA 42.20 / 8.50 112.80/22.20 Prox ICA 91.50 / 32.00 53.20/ 14.90 Mid ICA 69.70 / 24.40 44.70/ 15.60 Distal ICA 52.80 / 20.30 103.30 ECA 133.40 1.44 ICA/CCA 1.49 Antegrade Vertebral Antegrade 32.80/ 13.70 cm/s 79.50/ 17.90 cm/s Bi Subclavian Tri 79.50 49.70 FINDINGS Moderate heterogeneous irregular plaques at the bifurcation and proximal no carotid arteries on both sides. Anterior flow in the vertebral arteries bilaterally. Normal Doppler flow velocities in the external carotid arteries bilaterally. Normal Doppler flow velocities in the subclavian arteries bilaterally. CONCLUSIONS Moderate heterogeneous irregular plaques at the bifurcation and proximal internal carotid arteries on both sides with elevated Doppler velocities, suggestive of less than 50% stenosis bilaterally. Compared to the study from 08/09/2019, the ICA stenosis on the left side appears to be less severe Dr Adri Cortes MD [facility] (Electronically Signed) Final Date: 10 October 2020 22:56 S
== END 2020-10-10 07:35 | disposition home or self-care (01) ==
LOC: RAD 07:38
PROVIDERS: PCP Nurse Practitioner Family; Visit Provider Internal Medicine Cardiovascular Disease
DX: I65.23 Occlusion and stenosis of bilateral carotid arteries (principal)
CPT/HCPCS: 93880

== ENCOUNTER 2021-01-04 10:05 | Outpatient (CLI) | payer OTHER, SELFPAY ==
--- NOTE | 2021-01-04 10:22 | XR_ITS ---
WS: [id number] Right hip, 2 views, 01/04/2021 Clinical Data: R HIP PAIN Comparison: None. Findings: No fractures or dislocations are seen. The right hip joint is intact. The soft tissues are not remark able. The adjacent pelvis is normal. There is an acetabular lip. XR/XR hip RT 2-3V wo/w pel* [id number] Impression: Mild arthritic change of the right hip. Tonnis classification: grade 1: sclerosis of femoral head and acetabulum or sli ght joint space narrowing or slight lipping at joint margins
== END 2021-01-04 10:06 | disposition home or self-care (01) ==
LOC: RAD 10:14
PROVIDERS: PCP Nurse Practitioner Family; Visit Provider Nurse Practitioner Family
DX: M25.551 Pain in right hip (principal)
CPT/HCPCS: 73502

== ENCOUNTER 2021-04-12 10:45 | Outpatient (CLI) | payer OTHER, SELFPAY ==
--- NOTE | 2021-04-12 10:49 | MM_ITS ---
WS: [id number] BILATERAL SCREENING DIGITAL MAMMOGRAM WITH CAD HISTORY: SCREENING COMPARISON: 03/29/2020 and 12/21/2018 Bilateral CC and MLO views submitted. Computer aided detection analyzed. Breast composition: There are scattered areas of fibroglandular density. No suspicious masses, microc alcifications or architectural distortion. Scattered benign calcifications and vascular calcification s. MM/[id number] IMPRESSION: BI-RADS: 2-Benign FOLLOW UP: 1 Year Follow-up
== END 2021-04-12 10:46 | disposition home or self-care (01) ==
LOC: RADSHAW 10:48
PROVIDERS: PCP Nurse Practitioner Family; Visit Provider Nurse Practitioner Family
DX: Z12.31 Encounter for screening mammogram for malignant neoplasm of breast (principal)
CPT/HCPCS: 77067

== ENCOUNTER 2021-08-20 15:06 | Outpatient (CLI) | payer MEDICARE, SELFPAY ==
[2021-08-20 07:03] VITALS: BMI 28.2
[2021-08-20 15:48] VITALS: BP 136/76; PULSE 86; RESP 17; TEMP 36.7; O2SAT 98
[2021-08-20 16:08] VITALS: BP 130/77; PULSE 88; RESP 17; TEMP 36.6; O2SAT 97
[2021-08-20 17:08] VITALS: BP 128/78; PULSE 86; RESP 16; TEMP 36.9; O2SAT 97
== END 2021-08-20 15:07 | disposition home or self-care (01) ==
PROVIDERS: PCP Nurse Practitioner Family; Visit Provider Nurse Practitioner Family
DX: U07.1 COVID-19 (principal); E11.22 Type 2 diabetes mellitus with diabetic chronic kidney disease; N18.30 Chronic kidney disease, stage 3 unspecified
CPT/HCPCS: 96365

== ENCOUNTER 2022-01-10 06:00 | Outpatient (RCR) | payer OTHER, SELFPAY | END 2022-01-30 23:59 | disposition home or self-care (01) | LOC: SPT 06:00 | PROVIDERS: PCP Nurse Practitioner Family; Referring Provider Nurse Practitioner Family; Visit Provider Nurse Practitioner Family | DX: M25.551 Pain in right hip (principal) | CPT/HCPCS: 97110; 97162 ==

== ENCOUNTER 2022-04-17 08:42 | Outpatient (CLI) | payer MEDICARE, SELFPAY ==
--- NOTE | 2022-04-17 08:50 | MM_ITS ---
WS: [id number] Bilateral screening 3D tomosynthesis digital mammogram, 04/17/2022 Clinical Data: SCREENING Comparison: 04/12/2021, 03/29/2020, 12/21/2018, 11/26/2017, 11/13/2016, 11/12/2015, 11/09/2014, 11/03/2013, 10/06, 10/24/2009, 10/25/2008, 09/17/2007. Findings: The breast parenchymal pattern shows fat replacement. No spiculated masses or clustered calcification s are seen. There are no secondary signs of carcinoma. MM/[place] [id number] Impression: 1. Negative bilateral mammogram unchanged. 2. Recommend annual screening mammograms. BIRADS: 1-Negative FOLLOW UP: 1 Year Follow-up The CAD loom checker was used.
== END 2022-04-17 08:43 | disposition home or self-care (01) ==
LOC: RAD 08:43
PROVIDERS: PCP Nurse Practitioner Family; Visit Provider Nurse Practitioner Family
DX: Z12.31 Encounter for screening mammogram for malignant neoplasm of breast (principal)
CPT/HCPCS: 77063; 77067

== ENCOUNTER 2022-05-14 14:30 | Outpatient (CLI) | payer MEDICARE, SELFPAY ==
--- NOTE | 2022-05-14 14:42 | US_ITS ---
WS: [id number] ULTRASOUND SOFT TISSUES upper abdominal wall. HISTORY: ABDOMINAL OR PELVIC SWELLING MASS COMPARISON: None available. TECHNIQUE: 2-D and color Doppler imaging is submitted. Ultrasound is directed to the RIGHT supraumbilical abdomen. Normal appearance of the soft tissues. Wi th the patient upright there is no protrusion of bowel loops or hernia identified. US/US soft tissue/extremity [id number] IMPRESSION: Negative ultrasound RIGHT upper abdominal wall. Further evaluation by CT may be necessary to evaluate etiology of this protrusion.
== END 2022-05-14 14:31 | disposition home or self-care (01) ==
LOC: RAD 14:30
PROVIDERS: PCP Nurse Practitioner Family; Visit Provider Nurse Practitioner Family
DX: R19.03 Right lower quadrant abdominal swelling, mass and lump (principal)
CPT/HCPCS: 76882

== ENCOUNTER → 2022-05-20 08:41 | Outpatient (BNVA) | payer MEDICARE, SELFPAY | PROVIDERS: PCP Nurse Practitioner Family; Visit Provider Physician Assistant | DX: M47.816 Spondylosis without myelopathy or radiculopathy, lumbar region (principal) | CPT/HCPCS: 99203; 99204 ==

== ENCOUNTER 2022-06-03 16:18 | Emergency (ER) | payer MEDICARE, SELFPAY ==
[2022-06-03 16:55] VITALS: BP 132/79; PULSE 97; RESP 16; TEMP 36.9; O2SAT 99; BMI 28.2
--- NOTE | 2022-06-03 17:22 | XRR_ITS ---
PROCEDURE INFORMATION: Exam: XR Right Ribs with PA Chest Exam date and time: 06/03/2022 5:24 PM Age: 66 years old Clinical indication: Injury or trauma; Rib area; Blunt trauma (contusions or hematomas); Injury details: Fall in bathtub 2 days ago, RT rib pain; Additional info: Fall injury TECHNIQUE: Imaging protocol: Radiologic exam of the Right ribs with PA chest. Views: 3 views COMPARISON: CR XR chest 1V [id number] 03/29/2018 11:30 AM FINDINGS: Lungs: Interval appearance of slight subsegmental atelectasis in each lung base. No airspace disease. Subcentimeter calcified granuloma in the right lung apex still present. Pleural spaces: No pneumothorax or visible pleural fluid. Heart/Mediastinum: Still no cardiomegaly. Bones/joints: Narrowing of several thoracic discs. Interval appearance of the cortical waviness in the distal aspects of the right 9th and 10th ribs, but no obvious cortical step-off in these areas. Cortical step-off in the distal end of the right 8th rib and cortical waviness in the distal right 7th rib evident on the oblique image. XR/XR ribs RT mn 3V w CXR1V [id number] IMPRESSION: 1. Acute fracture of the right 8th rib. Subtle acute fracture or old fracture of the right 7th rib not differentiated. Interval cortical waviness in the right 9th and 10th ribs conceivably due to old fractures. 2. No pneumothorax. Interval slight atelectasis in the lung bases.
--- NOTE | 2022-06-03 18:19 | ED_ITS ---
HPI - Fall General: Chief Complaint: Fall Stated Complaint: Rib pain Time Seen by Provider: 06/03/22 18:14 History of Present Illness: 66-year-old female comes in today with right anterior rib pain. Patient reports that she had tripped and fell in her shower about 2 days ago and has had persistent pain in her right ribs. Patient reports difficulty taking a deep breath due to the pain. Patient appears nontoxic. Patient appears in mild to moderate pain at rest. Patient has a history of atherosclerosis, hypertension, diabetes mellitus, and asthma. Review of Systems Const: Denies: fever(s) Card: Denies: irregular heart rhythm Resp: Denies: dyspnea Musc: Reports: other (Right rib pain) [facility] ED PFSH: Medical History (Updated 06/03/22 @ 18:37 by MAGY Galvez) Anemia Asymptomatic bilateral carotid artery stenosis Atherosclerotic heart disease of [place] coronary artery without angina pectoris Atypical chest pain Diabetes 1.5, managed as type 2 Hyperlipemia, mixed PCO Hypertension Peripheral vascular disease of extremity with claudication Varicose ulcer of right lower extremity Surgical History H/O esophagogastroduodenoscopy 10/06/19: normal History of coronary artery stent placement History of hysterectomy (~1982) Status post colonoscopy 10/06/19: normal Family History Father Hypertension Diabetes CAD (coronary artery disease) myocardial infarction age 70 Denies family history of Anesthesia complication Bleeding disorder Social History Smoking and tobacco status: former smoker Second hand smoke exposure: No Alcohol intake: never Adopted: No Caregiver/support person: Yes Lives independently: Yes Household members: none Housing: House Marital status: Single service: No Current occupational status: disabled Current occupational exposures/hazards: No Pets and animals: No History of recent travel: No Sexually active: No Current gender identity: Female Bianka/Buddhist: None Special bianka needs: No Agree to transfusion: No Financial difficulty paying for basics: Decline to Answer Physical Exam Const: COMMON NORMALS: alert HENMT: COMMON NORMALS: normocephalic HEAD & SCALP: normocephalic Neck/C-Spine: COMMON NORMALS: full ROM Resp: COMMON NORMALS: normal respiratory effort Cardio: COMMON NORMALS: regular rate RATE: regular rate Extremity: COMMON NORMALS: full ROM Neuro: SENSORIUM/ORIENTATION: Yes alert Skin: COMMON NORMALS: turgor normal GENERAL SKIN EXAM: turgor normal Course Vital Signs: Vital signs: Vital Signs Temperature 98.4 F 06/03/22 16:55 Pulse Rate 97 06/03/22 16:55 Respiratory Rate 16 06/03/22 16:55 Blood Pressure 132/79 06/03/22 16:55 Pulse Oximetry 99 06/03/22 16:55 Oxygen Delivery Me thod 06/03/22 16:55 MDM - Fall Medical Decision Making Patient comes in today for complaints of right rib pain. Patient has tenderness in the anterior right ribs. Vital signs are normal. Differential diagnosis includes but not limited to contusion, rib fracture, pneumothorax, pneumonia. Chest x-ray noted no pneumonia rib films did note an acute fracture of the eighth rib but most likely old fractures of the seventh, ninth, and 10th ribs that were nondisplaced. No signs of pneumothorax or pneumonia was noted. Reviewed exam with patient with recommendations for treatment and follow-up. Patient reported understanding agreed to plan. Lab Data Radiology Impressions Ribs X-Ray 06/03/22 17:22 IMPRESSION: 1. Acute fracture of the right 8th rib. Subtle acute fracture or old fracture of the right 7th rib not differentiated. Interval cortical waviness in the right 9th and 10th ribs conceivably due to old fractures. 2. No pneumothorax. Interval slight atelectasis in the lung bases. Discharge Plan Discharge Patient Disposition: Home Clinical Impression: Closed rib fracture Qualifiers: Encounter type: initial encounter Rib fracture type: single rib Laterality: right Qualified Code(s): S22.31XA - Fracture of one rib, right side, initial encounter for closed fracture Condition: Stable Prescriptions: New hydrocodone-acetaminophen 5-325 mg tablet 1 tab PO Q8H PRN (Reason: pain) Qty: 14 0RF No Action fluticasone propionate [Allergy Relief (fluticasone)] 50 mcg/actuation spray,suspension 1 spray INTRANASAL ONCE sertraline 100 mg tablet 100 mg PO Q24H hydroxyzine HCl 50 mg tablet 50 mg PO QID PRN (Reason: Itching) cilostazol 100 mg tablet 100 mg PO BID 30 Days Qty: 60 5RF simvastatin 80 mg tablet 80 mg PO ONCE nitroglycerin [Nitrostat] 0.4 mg tablet, sublingual 0.4 mg SUBLINGUAL ONCE PRN (Reason: chest pain) metoprolol tartrate 25 mg tablet 12.5 mg PO BID metformin 1,000 mg tablet extended release 24hr 1,000 mg PO BID aspirin [Adult Low Dose Aspirin] 81 mg tablet,delayed release (DR/EC) 81 mg PO ONCE multivitamin [Daily Multi-Vitamin] Tablet 1 tab PO QAM biotin 2,500 mcg capsule 5,000 mcg PO ONCE losartan 100 mg tablet 50 mg PO DAILY Qty: 90 3RF [place] 10 mcg/dose(250 mcg/mL) 2.4 mL pen injector 10 mcg SUBCUT BID Qty: 2.4 3RF prednisone 20 mg tablet 20 mg PO DAILY Qty: 15 0RF Rx Instructions: Take 60 mg daily for day 1, 2, 3 Take 40 mg daily for days 4, 5 Take 20 mg daily for days 6, 7 [place] 10 mcg/dose(250 mcg/mL) 2.4 mL pen injector See Rx Instructions .ROUTE .COMPLEX Qty: 2.4 3RF Dose Instruction: INJECT 10MCG SUBCUTANEOUSLY TWICE DAILY FOR 30 DAYS Rx Instructions: INJECT 10MCG SUBCUTANEOUSLY TWICE DAILY FOR 30 DAYS Discharge Orders: Discharge ED (Routine); Ordered 06/03/22 Ordered By: Joe Pacheco Referrals: Shana Barrientos, REAL ESTATE DEVELOPER [Primary Care Provider] - Discharge Diet: Usual diet Discharge Activity: Increase activity as tolerated Patient Instructions: Rib Fracture (ED), Opioid Safety Activity Restrictions/Additional Instructions: Activity as tolerated. Use a pillow or rolled up blanket to splint the ribs when taking a deep breath or coughing. Drink plenty of water with medication. Activity as tolerated. Follow-up with primary care for further instruction. Return to ED for new concerns or worsening symptoms such as high fever or increased shortness of breath. Coding Level of Care Code ED Net Developer Software Engineer C for Sheldon Villar
[2022-06-03] MEDS: HYDROcodone-acetaminophen 5-325 mg Tablet 2 TAB PO (18:57)
[2022-06-03 19:13] VITALS: BP 137/71; PULSE 88; RESP 16; TEMP 36.6; O2SAT 97
== END 2022-06-03 19:17 | disposition home or self-care (01) ==
PROVIDERS: Emergency Provider Nurse Practitioner Family; PCP Nurse Practitioner Family
DX: S22.31XA Fracture of one rib, right side, initial encounter for closed fracture (principal); Z79.84 Long term (current) use of oral hypoglycemic drugs; Z79.82 Long term (current) use of aspirin; Z87.891 Personal history of nicotine dependence; I25.10 Atherosclerotic heart disease of native coronary artery without angina pectoris; E13.9 Other specified diabetes mellitus without complications; E78.2 Mixed hyperlipidemia; I10 Essential (primary) hypertension; W18.2XXA Fall in (into) shower or empty bathtub, initial encounter
CPT/HCPCS: 71101; 99283

== ENCOUNTER 2022-06-08 23:19 | Emergency (ER) | payer MEDICARE, SELFPAY ==
[2022-06-08 23:20] VITALS: PULSE 98; RESP 23; TEMP 36.6; O2SAT 100; BMI 28.2
--- NOTE | 2022-06-08 23:25 | ECG_ITS ---
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 Measurements Intervals [place] Rate: 99 P: 52 MD: 158 QRS: -19 QRSD: 80 T: 29 QT: 340 QTc: 437 Interpretive Statements SINUS RHYTHM POSSIBLE LEFT ATRIAL ENLARGEMENT [-0.1mV P-WAVE IN V1/V2] POSSIBLE LEFT VENTRICULAR HYPERTROPHY [VOLTAGE CRITERIA PLUS LAE OR QRS WIDENING] POSSIBLE SEPTAL MYOCARDIAL INFARCTION , OF INDETERMINATE AGE Compared to ECG 03/29/2018 18:25:24 No significant changes Electronically Signed On 06-10-2022 12:05:28 VENEER SANDER by Prudence Bullard M.D. [email or web address]
--- NOTE | 2022-06-08 23:34 | XRR_ITS ---
PROCEDURE INFORMATION: Exam: XR Chest Exam date and time: 06/09/2022 12:44 AM Age: 66 years old Clinical indication: Pain; Chest pressure; Additional info: Chest pain TECHNIQUE: Imaging protocol: Radiologic exam of the chest. Views: 1 view. COMPARISON: CR (CHEST, ) 06/03/2022 5:24 PM FINDINGS: Lungs: Shallow inspiration with mild atelectasis in the lung bases. The lungs are otherwise clear. No consolidation. Pleural spaces: Unremarkable. No pleural effusion. No pneumothorax. Heart/Mediastinum: Unremarkable. No cardiomegaly. Bones/joints: Degenerative changes of thoracic spine. No visible fracture. XR/XR chest 1V portable [id number] IMPRESSION: No acute findings.
--- NOTE | 2022-06-08 23:41 | W.ED.CHESTPA ---
HPI - Chest Pain General: Chief Complaint: Chest Pain Stated Complaint: cp Time Seen by Provider: 06/08/22 23:34 History of Present Illness: 66-year-old female comes in today with complaints of right rib pain. Patient reports persistent rib pain since being diagnosed with fractures of the rib 1 week ago. Patient has been given hydrocodone with minimal relief of pain. Patient was concerned due to tonight when she turned over and had sudden excruciating pain on the right side. Patient appears nontoxic. Patient appears in moderate pain. Associated symptoms: Deny dyspnea or fever(s) Review of Systems Const: Denies: fever(s) Card: Reports: chest pain Resp: Denies: dyspnea PFSH ED PFSH: Medical History (Updated 06/09/22 @ 01:53 by MAGY Galvez) Anemia Asymptomatic bilateral carotid artery stenosis Atherosclerotic heart disease of [place] coronary artery without angina pectoris Atypical chest pain Diabetes 1.5, managed as type 2 Hyperlipemia, mixed PCO Hypertension Peripheral vascular disease of extremity with claudication Varicose ulcer of right lower extremity Surgical History H/O esophagogastroduodenoscopy 10/06/19: normal History of coronary artery stent placement History of hysterectomy (~1982) Status post colonoscopy 10/06/19: normal Family History Father Hypertension Diabetes CAD (coronary artery disease) myocardial infarction age 70 Denies family history of Anesthesia complication Bleeding disorder Social History Smoking and tobacco status: former smoker Second hand smoke exposure: No Alcohol intake: never Adopted: No Caregiver/support person: Yes Lives independently: Yes Household members: none Housing: House Marital status: Single service: No Current occupational status: disabled Current occupational exposures/hazards: No Pets and animals: No History of recent travel: No Sexually active: No Current gender identity: Female Bianka/Sikhism: None Special bianka needs: No Agree to transfusion: No Financial difficulty paying for basics: Decline to Answer Physical Exam Const: COMMON NORMALS: patient oriented x3 HENMT: COMMON NORMALS: normocephalic HEAD & SCALP: normocephalic Neck/C-Spine: COMMON NORMALS: full ROM Chest: CHEST: Yes tenderness (Right anterior ribs) Resp: COMMON NORMALS: normal respiratory effort AUSCULTATION: diminished lung sounds (Bilateral bases) Cardio: COMMON NORMALS: regular rate RATE: regular rate GI: COMMON NORMALS: Soft to palpation and non-tender PALPATION: Yes Soft to palpation : COMMON NORMALS: Yes no CVA tenderness BLADDER/KIDNEY EXAM: Yes no CVA tenderness Back/Pelvis: COMMON NORMALS: no CVA tenderness Extremity: COMMON NORMALS: normal to inspection Neuro: COMMON NORMALS: patient oriented x3 Skin: COMMON NORMALS: turgor normal GENERAL SKIN EXAM: turgor normal Course Vital Signs: Vital signs: Vital Signs Temperature 97.9 F 06/08/22 23:20 Pulse Rate 98 06/08/22 23:20 Respiratory Rate 23 H 06/08/22 23:20 Pulse Oximetry 100 06/08/22 23:20 Oxygen Delivery Me thod 06/08/22 23:20 MDM - Chest Pain Medical Decision Making 66-year-old female comes in today for complaints of right rib pain. Patient was diagnosed with rib fractures last week and has been using hydrocodone with some relief of pain. Patient reports inspiration causes more increase in pain and discomfort. On exam lungs are decreased in the bases bilaterally. Vital signs are normal. Differential diagnosis includes pneumothorax, pneumonia, ACS, malingering. CBC and CMP were unremarkable. Patient does have a little bit of elevation in her liver enzymes but bilirubin is normal. EKG showed some chronic changes. Chest x-ray showed no significant abnormalities. I believe we will alter patient's medication regimen we will put her on some Celebrex 100 mg twice a day for pain and inflammation and continue with some tramadol 50 mg 4 times a day for better control of pain. Patient will stop the hydrocodone and follow-up with primary care. Lab Data : 06/09/22 00:55 06/09/22 00:55 Radiology Impressions Chest X-Ray 06/08/22 23:34 IMPRESSION: No acute findings. Laboratory Results WBC 7.5 10^3/uL (4.0-10.0) 06/09/22 00:55 RBC 4.67 10^6/uL (4.1-5.3) 06/09/22 00:55 Hgb 11.8 g/dL (11.5-15.3) 06/09/22 00:55 Hct 40.1 % (37.0-47.0) 06/09/22 00:55 MCV 85.9 fl (81-99) 06/09/22 00:55 MCH 25.3 pg (28.0-34.0) L 06/09/22 00:55 MCHC 29.4 g/dL (30.0-36.0) L 06/09/22 00:55 RDW 17.9 % (12.1-15.1) H 06/09/22 00:55 Plt Count 352 10^3/cmm (130-400) 06/09/22 00:55 MPV 11.4 fL (7.4-10.4) H 06/09/22 00:55 Neut % (Auto) 41.6 % 06/09/22 00:55 Lymph % (Auto) 47.9 % 06/09/22 00:55 [place] % (Auto) 7.2 % 06/09/22 00:55 Eos % (Auto) 2.4 % 06/09/22 00:55 Baso % (Auto) 0.8 % 06/09/22 00:55 Neut # (Auto) 3.13 10^3/uL (1.8-7.7) 06/09/22 00:55 Lymph # (Auto) 3.6 10^3/uL (0.8-4.8) 06/09/22 00:55 [place] # (Auto) 0.5 10^3/uL (0.2-0.9) 06/09/22 00:55 Eos # (Auto) 0.2 10^3/uL (0.0-0.8) 06/09/22 00:55 Baso # (Auto) 0.1 10^3/uL (0.0-0.1) 06/09/22 00:55 Nucleated RBC % (auto) 0 % 06/09/22 00:55 Nucleated RBCs # 0.0 /100WBC 06/09/22 00:55 Sodium 137 mmol/L (136-145) 06/09/22 00:55 Chloride 99 mmol/L (98-107) 06/09/22 00:55 Carbon Dioxide 26 mmol/L (22-29) 06/09/22 00:55 BUN 20 mg/dL (8-23) 06/09/22 00:55 Creatinine 0.9 mg/dL (0.5-0.9) 06/09/22 00:55 Glucose 94 mg/dL (65-115) 06/09/22 00:55 Calculated Osmolality 286 mOsm/kg (285-295) 06/09/22 00:55 Calcium 10.0 mg/dL (8.5-10.5) 06/09/22 00:55 Total Bilirubin 0.2 mg/dL (0.15-1.2) 06/09/22 00:55 Troponin T Baseline 9 ng/L (0-10) 06/09/22 00:55 NT-Pro-B Natriuret Pep 115 pg/mL (0-125) 06/09/22 00:55 Total Protein 8.6 g/dL (6.6-8.7) 06/09/22 00:55 Albumin 4.4 g/dL (3.5-5.2) 06/09/22 00:55 Globulin 4.2 g/dL (1.3-4.6) 06/09/22 00:55 Discharge Plan Discharge Patient Disposition: Home Clinical Impression: Atypical chest pain Closed rib fracture Qualifiers: Encounter type: subsequent encounter Rib fracture type: multiple ribs Laterality: right Fracture healing: with routine healing Qualified Code(s): S22.41XD - Multiple fractures of ribs, right side, subsequent encounter for fracture with routine healing Condition: Stable Prescriptions: New tramadol 50 mg tablet 50 mg PO Q6H PRN (Reason: pain) Qty: 30 0RF celecoxib 100 mg capsule 100 mg PO BID Qty: 20 0RF No Action fluticasone propionate [Allergy Relief (fluticasone)] 50 mcg/actuation spray,suspension 1 spray INTRANASAL ONCE sertraline 100 mg tablet 100 mg PO Q24H hydroxyzine HCl 50 mg tablet 50 mg PO QID PRN (Reason: Itching) cilostazol 100 mg tablet 100 mg PO BID 30 Days Qty: 60 5RF simvastatin 80 mg tablet 80 mg PO ONCE nitroglycerin [Nitrostat] 0.4 mg tablet, sublingual 0.4 mg SUBLINGUAL ONCE PRN (Reason: chest pain) metoprolol tartrate 25 mg tablet 12.5 mg PO BID metformin 1,000 mg tablet extended release 24hr 1,000 mg PO BID aspirin [Adult Low Dose Aspirin] 81 mg tablet,delayed release (DR/EC) 81 mg PO ONCE multivitamin [Daily Multi-Vitamin] Tablet 1 tab PO QAM biotin 2,500 mcg capsule 5,000 mcg PO ONCE losartan 100 mg tablet 50 mg PO DAILY Qty: 90 3RF [place] 10 mcg/dose(250 mcg/mL) 2.4 mL pen injector 10 mcg SUBCUT BID Qty: 2.4 3RF prednisone 20 mg tablet 20 mg PO DAILY Qty: 15 0RF Rx Instructions: Take 60 mg daily for day 1, 2, 3 Take 40 mg daily for days 4, 5 Take 20 mg daily for days 6, 7 [place] 10 mcg/dose(250 mcg/mL) 2.4 mL pen injector See Rx Instructions .ROUTE .COMPLEX Qty: 2.4 3RF Dose Instruction: INJECT 10MCG SUBCUTANEOUSLY TWICE DAILY FOR 30 DAYS Rx Instructions: INJECT 10MCG SUBCUTANEOUSLY TWICE DAILY FOR 30 DAYS hydrocodone-acetaminophen 5-325 mg tablet 1 tab PO Q8H PRN (Reason: pain) Qty: 14 0RF Discharge Orders: Discharge ED (Routine); Ordered 06/09/22 Ordered By: Joe Pacheco Referrals: Shana Barrientos DATA VISUALIZATION DEVELOPER [Primary Care Provider] - Discharge Diet: Usual diet Discharge Activity: Increase activity as tolerated Patient Instructions: Rib Fracture (ED), Opioid Safety Activity Restrictions/Additional Instructions: Drink plenty of fluids. Use medication as directed. Take celecoxib 100 mg 2 times a day routinely for pain and inflammation. Use tramadol 50 mg 4 times a day as needed for persistent severe pain. Follow-up with primary care. Return to ED for worsening symptoms such as fever greater than 100.4, increasing shortness of breath, blood in stool or urine. Coding Level of Care Code ED Door To Door Selling Agent for Sheldon Fwd Exam Comprehensive
[2022-06-08] MEDS: morphine 4 mg/mL SDV 1 mL 2 MG IVP (23:44)
[2022-06-09] MEDS: morphine 4 mg/mL SDV 1 mL IVP (00:13)
[2022-06-09 01:15] LABS: Basophils # 0.1 10^3/uL (0.0-0.1); Basophils % 0.8 %; Eosinophils # 0.2 10^3/uL (0.0-0.8); Eosinophils % 2.4 %; Hematocrit 40.1 % (37.0-47.0); Hemoglobin 11.8 g/dL (11.5-15.3); Lymphocytes # 3.6 10^3/uL (0.8-4.8); Lymphocytes % 47.9 %; Mean Corpuscular HGB Conc 29.4 g/dL (30.0-36.0); Mean Corpuscular Hemoglobin 25.3 pg (28.0-34.0); Mean Corpuscular Volume 85.9 fl (81-99); Mean Platelet Volume 11.4 fL (7.4-10.4); Monocytes # 0.5 10^3/uL (0.2-0.9); Monocytes % 7.2 %; Neutrophils # 3.13 10^3/uL (1.8-7.7); Neutrophils % 41.6 %; Nucleated Red Blood Cells % 0 %; Platelet Count 352 10^3/cmm (130-400); Red Blood Count 4.67 10^6/uL (4.1-5.3); Red Cell Distribution Width 17.9 % (12.1-15.1); White Blood Count 7.5 10^3/uL (4.0-10.0)
[2022-06-09 01:37] LABS: Troponin(5th) Baseline 9 ng/L (0-10)
[2022-06-09 01:42] LABS: Alanine Aminotransferase 36 U/L (0-33); Albumin Level 4.4 g/dL (3.5-5.2); Alkaline Phosphatase 111 U/L (35-105); Blood Urea Nitrogen 20 mg/dL (8-23); Carbon Dioxide 26 mmol/L (22-29); Chloride 99 mmol/L (98-107); Globulin 4.2 g/dL (1.3-4.6); Glucose 94 mg/dL (65-115); NT Pro B Type Natriuretic Pept 115 pg/mL (0-125); Osmolality Calculated 286 mOsm/kg (285-295); Sodium 137 mmol/L (136-145); Total Bilirubin 0.2 mg/dL (0.15-1.2); Total Protein 8.6 g/dL (6.6-8.7)
[2022-06-09 02:16] LABS: Anion Gap 16.2 (5-19); Aspartate Amino Transferase 65 U/L (0-32); Potassium 4.2 mmol/L (3.5-5.1)
[2022-06-09 02:28] VITALS: RESP 14
[2022-06-09] MEDS: dexamethasone 10 mg/mL INJ 6 MG IVP (02:28)
[2022-06-09] MEDS: HYDROmorphone 1 mg/mL INJ 1 mL 0.5 MG IVP (02:28)
[2022-06-09] MEDS: ketorolac 30 mg/mL INJ 15 MG IVP (02:28)
== END 2022-06-09 02:30 | disposition home or self-care (01) ==
PROVIDERS: Emergency Provider Nurse Practitioner Family; PCP Nurse Practitioner Family
DX: S22.41XD Multiple fractures of ribs, right side, subsequent encounter for fracture with routine healing (principal); X58.XXXD Exposure to other specified factors, subsequent encounter
CPT/HCPCS: 71045; 80053; 83880; 84484; 85025; 93005; 96374; 96375; 96376; 99285; J1100; J1170; J1885; J2270

== ENCOUNTER 2022-07-02 07:12 | Outpatient (CLI) | payer MEDICARE, SELFPAY ==
--- NOTE | 2022-07-02 08:00 | MR_ITS ---
WS: [id number] MRI LUMBAR SPINE NONCONTRAST HISTORY: Low back pain radiating into RIGHT hip. Difficulty walking. COMPARISON: 10/04/2020 radiographs. TECHNIQUE: Sagittal and axial multisequence imaging is submitted. There are 4 lumbar type vertebral bodies which are nonrib-bearing. The fifth lumbar vertebral body ma y be partially sacralized. This numbering pattern will be port if surgery is ever contemplated in thi s patient to ensure the correct level. Very slight increase in the lumbar lordosis. L4 retrolisthesis by 2 mm. Disc spaces are well preserved. No fracture or marrow edema. Conus terminates normally at T12-L1. L1-L2: Normal. L2-L3: Mild disc bulging. Moderate ligamentum flavum and facet arthritis encroaching into the posteri or lateral thecal sac. Mild central and subarticular recess narrowing. There is mild encroachment upo n the traversing L3 nerve roots. L3-L4: Diffuse annular disc bulging with moderate to severe ligamentum flavum and facet arthritis. Fl uid in the facet joints, RIGHT greater than LEFT. Moderate central and bilateral subarticular recess stenosis. Bilateral moderate foraminal stenosis, RIGHT greater than LEFT. There is disc and osteophyt e contacting the exiting L3 nerve roots. There is also contact and narrowing of the subarticular rece sses and the L4 traversing nerve roots. L4-L5: Small central disc protrusion. Mild ligamentum flavum and facet arthritis. Mild to moderate bi lateral foraminal stenosis. L5-S1: Very rudimentary disc. The L5 vertebral body is partially sacralized. No stenosis. Mild atherosclerosis without aneurysm abdominal aorta. There are multiple RIGHT renal cysts. The larg est is incompletely visualized measuring 2.3 x 2.6 cm. MR/MR lumbar spine wo con* [id number] IMPRESSION: 1. 4 nonrib-bearing lumbar type vertebral bodies identified. The L5 vertebral body appears sacralized. This numbering pattern will be very important if surge ry is contemplated in this patient to ensure the correct levels. 2. Mild central and bilateral subarticular recess stenosis at L2-3 with encroa chment upon the traversing L3 nerve roots. 3. Moderate central, bilateral subarticular recess and foraminal stenosis at L 3-4. Disc and osteophyte contacting the L3 and L4 nerve roots. 4. Mild to moderate bilateral foraminal stenosis at L4-5.
== END 2022-07-02 07:13 | disposition home or self-care (01) ==
PROVIDERS: PCP Nurse Practitioner Family; Visit Provider Physician Assistant
DX: M54.50 Low back pain, unspecified (principal); M25.551 Pain in right hip; M48.061 Spinal stenosis, lumbar region without neurogenic claudication
CPT/HCPCS: 72148

== ENCOUNTER → 2022-07-22 14:49 | Outpatient (BNVA) | payer MEDICARE, SELFPAY | PROVIDERS: PCP Nurse Practitioner Family; Visit Provider Physician Assistant | DX: M43.16 Spondylolisthesis, lumbar region (principal); M79.604 Pain in right leg | CPT/HCPCS: 99213 ==

== ENCOUNTER 2022-10-16 11:06 | Outpatient (CLI) | payer OTHER, SELFPAY ==
--- NOTE | 2022-10-16 11:20 | CT_ITS ---
WS: [id number] CT ABDOMEN AND PELVIS WITH CONTRAST HISTORY: ABDOMINAL OR PELVIC Swelling, mass, OR LUMP TECHNIQUE: Imaging performed of the abdomen and pelvis with IV contrast. Single phase imaging of the abdomen. Coronal and sagittal reformats are submitted. All CT scans at [facility] use at [address] one of these dose optimization techniques: automated exposure control; mA and/or kV adjustment per patient size (includes targeted exams where dose is matched to clinical indication); or iterative re construction. IV CONTRAST: Omnipaque 350; 100 mL IV. Oral contrast: Yes. DLP: 387.61 mGy.cm COMPARISON: 03/06/2016 Lower thorax: 3 mm micronodule RIGHT lung base is unchanged. Heart is normal size. No hiatal hernia. Liver/biliary system: Normal size with no intrahepatic dilatation. Gallbladder: Normal. No gallstones or wall thickening. No pericholecystic fluid. Pancreas: Normal size pancreas and pancreatic duct. No adjacent inflammation. Spleen: Normal size spleen. No mass or infarct. Adrenal glands: Normal. Right kidney: Normal size kidney with no obstruction. Stable RIGHT upper pole cyst measures 3.2 x 3.1 cm. Left kidney: Normal. Aorta: Mild atherosclerosis with no aneurysm. Mild plaque in the SMA and celiac axis. Calcified plaqu e proximal renal arteries. Moderate plaque continues into the common iliac arteries with the greater burden of plaque. Femoral artery stenosis is likely bilaterally. Lymphadenopathy: None. Free fluid: None. GI tract: Well-distended stomach. No small bowel obstruction. Diffuse constipation. The appendix is n ot identified. Abdominal wall: Fat-containing umbilical hernia. Very small hernia similar to the prior examination 2015. Pelvis: Well-distended urinary bladder. No free fluid in the pelvis. Prior hysterectomy. Bones: Healed rib fractures in the RIGHT lateral lower thorax. CT/CT abdomen pelvis w con* [id number] IMPRESSION: 1. Small fat-containing umbilical hernia. Similar to 03/06/2016. 2. No acute abdominal or pelvic abnormalities are identified. 3. Atherosclerosis aorta. More significant atherosclerotic plaque with stenosi s in the common iliac and femoral arteries. Stenosis likely greater than 50% in the distal femoral arteries. 4. Stable RIGHT renal cyst.
[2022-10-16] MEDS: iohexol 350 mg/mL 500 mL Btl (per mL) PO (12:43)
[2022-10-16] MEDS: iohexol 350 mg/mL 500 mL Btl (per mL) IV (12:43)
== END 2022-10-16 11:07 | disposition home or self-care (01) ==
LOC: RAD 11:13
PROVIDERS: PCP Nurse Practitioner Family; Visit Provider Family Medicine
DX: R19.07 Generalized intra-abdominal and pelvic swelling, mass and lump (principal); K42.9 Umbilical hernia without obstruction or gangrene; N28.1 Cyst of kidney, acquired
CPT/HCPCS: 74177; Q9967

== ENCOUNTER → 2022-10-23 11:54 | Outpatient (BNVA) | payer OTHER, SELFPAY | PROVIDERS: PCP Nurse Practitioner Family; Visit Provider Anesthesiology Pain Medicine | DX: M16.9 Osteoarthritis of hip, unspecified (principal) | CPT/HCPCS: 73560 ==

== ENCOUNTER 2022-11-14 14:12 | Outpatient (CLI) | payer MEDICARE, SELFPAY ==
--- NOTE | 2022-11-14 14:26 | XR_ITS ---
WS: [id number] SCREENING DEXA SCAN [employer] CLINICAL INFORMATION: POSTMENOPAUSAL STATE COMPARISON: None. FINDINGS: The L1-L4 bone mineral density measures 1.191 g/cm2. This corresponds to a T score score of 0.1 and Z score of 0.6. Left femoral neck bone mineral density measures 0.732 g/cm2. This corresponds to a T score of -2.2 an d Z score of -2.2. Right femoral neck bone mineral density measures 0.714 g/cm2. This corresponds to a T score -2.3of an d Z score of -2.3. Mean femoral neck bone mineral density measures 0.723 g/cm2. This corresponds to a T score of -2.3 an d Z score of -2.2. XR/XR DEXA axial skeleton* [id number] IMPRESSION: Normal bone mineralization lumbar spine. Osteopenia femoral necks. Patient's FRAX calculated 10 year probability for major osteoporotic fracture i s 4.5 % and osteoporotic hip fracture is 0.6%.
== END 2022-11-14 14:13 | disposition home or self-care (01) ==
LOC: RAD 14:18
PROVIDERS: PCP Nurse Practitioner Family; Visit Provider Nurse Practitioner Family
DX: Z78.0 Asymptomatic menopausal state (principal); M85.88 Other specified disorders of bone density and structure, other site
CPT/HCPCS: 77080

== ENCOUNTER → 2022-11-19 09:42 | Outpatient (BNVA) | payer MEDICARE, SELFPAY | PROVIDERS: PCP Nurse Practitioner Family; Visit Provider Anesthesiology Pain Medicine | DX: M51.17 Intervertebral disc disorders with radiculopathy, lumbosacral region (principal); M43.16 Spondylolisthesis, lumbar region; M47.816 Spondylosis without myelopathy or radiculopathy, lumbar region | CPT/HCPCS: 99214 ==

== ENCOUNTER → 2022-12-01 11:55 | Outpatient (BNVA) | payer MEDICARE, SELFPAY | PROVIDERS: PCP Nurse Practitioner Family; Visit Provider Internal Medicine Cardiovascular Disease | DX: I25.10 Atherosclerotic heart disease of native coronary artery without angina pectoris (principal); I10 Essential (primary) hypertension; E78.2 Mixed hyperlipidemia; I65.23 Occlusion and stenosis of bilateral carotid arteries; I73.9 Peripheral vascular disease, unspecified; E13.9 Other specified diabetes mellitus without complications; Z87.891 Personal history of nicotine dependence; Z79.4 Long term (current) use of insulin | CPT/HCPCS: 99213 ==

== ENCOUNTER → 2022-12-22 12:06 | Outpatient (BNVA) | payer MEDICARE, SELFPAY | PROVIDERS: PCP Nurse Practitioner Family; Visit Provider Anesthesiology Pain Medicine | DX: M43.16 Spondylolisthesis, lumbar region (principal); M47.816 Spondylosis without myelopathy or radiculopathy, lumbar region; M79.604 Pain in right leg; M16.0 Bilateral primary osteoarthritis of hip | CPT/HCPCS: 73503; 99214 ==

== ENCOUNTER → 2023-01-12 10:34 | Outpatient (BNVA) | payer MEDICARE, SELFPAY | PROVIDERS: PCP Nurse Practitioner Family; Visit Provider Anesthesiology Pain Medicine | DX: M43.16 Spondylolisthesis, lumbar region (principal); M47.816 Spondylosis without myelopathy or radiculopathy, lumbar region; M16.0 Bilateral primary osteoarthritis of hip | CPT/HCPCS: 99214 ==

== ENCOUNTER → 2023-02-11 13:05 | Outpatient (BNVA) | payer MEDICARE, SELFPAY | PROVIDERS: PCP Nurse Practitioner Family; Visit Provider Anesthesiology Pain Medicine | DX: M16.11 Unilateral primary osteoarthritis, right hip (principal) | CPT/HCPCS: 20610; J1030; J3490 ==

== ENCOUNTER 2023-02-13 06:43 | Outpatient (CLI) | payer MEDICARE, SELFPAY ==
--- NOTE | 2023-02-13 | USCV_ITS ---
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 Normal Doppler flow velocities Resting ISIDRA 1.0 on the right side CONCLUSIONS 1. Normal resting ISIDRA on the right side. 2. Mild to moderate diffuse plaque in the iliac, femoral and popliteal arteries on the right side with no significant stenosis, based on the above findings Dr Adri Cortes MD [facility] (Electronically Signed) Final Date: 13 February 2023 11:35 S
== END 2023-02-13 06:44 | disposition home or self-care (01) ==
PROVIDERS: PCP Nurse Practitioner Family; Visit Provider Specialist/Technologist Athletic Trainer
DX: I70.213 Atherosclerosis of native arteries of extremities with intermittent claudication, bilateral legs (principal)
CPT/HCPCS: 93926

== ENCOUNTER 2023-03-20 09:53 | Outpatient (CLI) | payer MEDICARE, SELFPAY ==
[2023-03-21 12:09] LABS: CREATININE, 24 HOUR URINE 0.84 g/24 h (0.50-2.15); PROTEIN, TOTAL, 24 HR UR 156 mg/24 h (<150); Protein/Creatinine Ratio 0.186 (<0.150); Protein/Creatinine Ratio 186 mg/g creat (<150)
[2023-03-24 15:09] LABS: ALBUMIN 100 %; ALPHA-1-GLOBULINS 0 %; ALPHA-2-GLOBULINS 0 %; BETA GLOBULINS 0 %; GAMMA GLOBULINS 0 %
== END 2023-03-20 09:54 | disposition home or self-care (01) ==
PROVIDERS: PCP Nurse Practitioner Family; Visit Provider Internal Medicine Medical Oncology
DX: D64.9 Anemia, unspecified (principal)
CPT/HCPCS: 82274; 84156; 84166

== ENCOUNTER 2023-04-01 14:30 | Oncology outpatient (recurring) (ONCR) | payer MEDICARE, SELFPAY ==
[2023-03-18 10:12] LABS: Basophils # 0.1 10^3/uL (0.0-0.1); Basophils % 1.6 %; Eosinophils # 0.1 10^3/uL (0.0-0.8); Eosinophils % 1.6 %; Hematocrit 33.3 % (37.0-47.0); Hemoglobin 9.7 g/dL (11.5-15.3); Lymphocytes # 1.4 10^3/uL (0.8-4.8); Lymphocytes % 32.5 %; Mean Corpuscular HGB Conc 29.1 g/dL (30.0-36.0); Mean Corpuscular Hemoglobin 22.2 pg (28.0-34.0); Mean Corpuscular Volume 76.2 fl (81-99); Mean Platelet Volume 8.4 fL (7.4-10.4); Monocytes # 0.2 10^3/uL (0.2-0.9); Monocytes % 5.4 %; Neutrophils % 58.7 %; Nucleated Red Blood Cells % 0 %; Platelet Count 312 10^3/cmm (130-400); Red Blood Count 4.37 10^6/uL (4.1-5.3); Red Cell Distribution Width 22.8 % (12.1-15.1); White Blood Count 4.4 10^3/uL (4.0-10.0)
[2023-03-18 10:37] LABS: Ferritin 12 ng/mL (15-150); Iron 25 ug/dL (37-145); Lactate Dehydrogenase 107 U/L (135-214); Percent Saturation 6.5 % (20-50); Total Iron Binding Capacity 383 mcg/dl; Unsaturated Iron Binding 358 ug/dL (112-347)
[2023-03-19 10:40] LABS: PROTEIN, TOTAL 7.5 g/dL (6.1-8.1)
[2023-03-19 14:05] LABS: KAPPA LIGHT CHAIN, FREE, SERUM 50.7 mg/L (3.3-19.4); KAPPA/LAMBDA LIGHT CHAINS FREE 1.94 (0.26-1.65); LAMBDA LIGHT CHAIN, FREE, SERU 26.1 mg/L (5.7-26.3)
[2023-03-19 15:44] LABS: ALBUMIN 3.9 g/dL (3.8-4.8); ALPHA 1 GLOBULIN 0.4 g/dL (0.2-0.3); ALPHA 2 GLOBULIN 0.8 g/dL (0.5-0.9); BETA 1 GLOBULIN 0.6 g/dL (0.4-0.6); BETA 2 GLOBULIN 0.5 g/dL (0.2-0.5); GAMMA GLOBULIN 1.4 g/dL (0.8-1.7)
[2023-03-26 08:20] VITALS: BP 135/71; PULSE 94; RESP 16; O2SAT 99
[2023-03-26] MEDS: iron sucrose 200 MG in sodium chloride 0.9% (100 ml) 100 ML 220 MG IV (09:29)
[2023-03-26] MEDS: sodium chloride 0.9% 250 ML 75 ML IV (09:29)
[2023-03-26 10:14] VITALS: BP 112/74; PULSE 98; O2SAT 99
== END 2023-04-02 23:59 | disposition home or self-care (01) ==
PROVIDERS: PCP Nurse Practitioner Family; Visit Provider Internal Medicine Medical Oncology
DX: Z53.9 Procedure and treatment not carried out, unspecified reason (principal)
CPT/HCPCS: 82728; 83540; 83550; 83615; 83883; 84155; 84165; 85025; 86334; 86880; 96365; 99205; J1756; J7050

== ENCOUNTER 2023-04-17 10:30 | Oncology outpatient (recurring) (ONCR) | payer MEDICARE, SELFPAY ==
--- OUTSIDE RECORDS SUMMARY | 2023-04-08 13:32 | XMS_ITS | Continuity of Care Document ---
Author Name Unknown Organization [facility] Address [address] [place] [address]- Care Team Providers Care Vocational Nursing Instructor Name Role Phone Deja Hernadez DO Primary Care Physician Encounter [employer] Number [id number] Date(s): 01/07/23 - 01/08/23 [facility] [address] [facility] [address] [facility] [id number]- Attending Physician: Mirela SHARP, Sunny Noel Allergies, Adverse Reactions, Alerts Substance Reaction Severity Status isosorbide 1 Active Lipitor Headache Active Ranexa Persistent headaches Active Januvia 2 Active 1 doesn't remember reaction 2 doesn't remember reaction Assessment and Plan Future Scheduled Tests Radiology* US VL Duplex Arterial LE Right 01/07/23 * US VL ISIDRA Exam BTP 01/07/23 Medications aspirin 81 mg oral tablet 81 mg = 1 tab, By mouth, Daily, # 30 tab, Refill(s) 0 Start Date: 04/19/18 Status: Ordered cilostazol 100 mg oral tablet 100 mg = 1 tab, By mouth, BID, # 180 tab, Refill(s) 0 Start Date: 04/19/18 Status: Ordered ezetimibe 10 mg oral tablet 10 mg = 1 tab, By mouth, Daily, # 30 tab, Refill(s) 0 Start Date: 04/19/18 Status: Ordered losartan 50 mg oral tablet 50 mg = 1 tab, By mouth, Daily, # 30 tab, Refill(s) 0 Start Date: 04/19/18 Status: Ordered Lumigan 0.01% ophthalmic solution 1 Drops, Both Eyes, QPM (every evening), Refill(s) 0 Start Date: 05/25/18 Status: Ordered metFORMIN 1000 mg oral tablet 1,000 mg = 1 tab, By mouth, BID, # 180 tab, Refill(s) 0 Start Date: 04/19/18 Status: Ordered Metoprolol Succinate ER 25 mg oral tablet, extended release 12.5 mg = 0.5 tab, By mouth, Daily, # 30 tab, Refill(s) 0 Start Date: 04/19/18 Status: Ordered nitroglycerin 0.4 mg sublingual spray 0.4 mg = 1 spray, SL, Q5Min, PRN for chest pain, # 4.9 g, Refill(s) 0 Start Date: 05/25/18 Status: Ordered Percocet 5/325 oral tablet 1 tab, By mouth, Q4H, PRN Pain Moderate, 20 tab, 0, 0, Substitution Permitted, [facility], 68, Height, 12/05/22 8:38:00 CDT, in, 79.5, Weight, 12/05/22 8:38:00 CDT, kg Start Date: 12/05/22 Status: Ordered Plavix 75 mg oral tablet 75 mg = 1 tab, By mouth, Daily, # 30 tab, Refill(s) 0, Pharmacy: [facility], [id number], TAB, 1 tab By mouth Daily, 79.5, 12/05/22 8:38:00 CDT, kg, Weight Start Date: 12/05/22 Status: Ordered sertraline 100 mg oral tablet 100 mg = 1 tab, By mouth, Daily, # 30 tab, Refill(s) 0 Start Date: 04/19/18 Status: Ordered simvastatin 80 mg oral tablet 80 mg = 1 tab, PO, at bedtime, # 30 tab, Refill(s) 0 Start Date: 04/19/18 Status: Ordered Problem List Condition Confirmation Course Effective Dates Status Health St atus Informant Ex-smoker Confirmed Active patient GI bleed Confirmed Active Iron deficiency anemia Confirmed Active Procedures Procedure Date Related Diagnosis Body Site Status Diamondback atherectomy of t he right superficial femoral and popliteal arteries 12/05/22 Completed Esophagogastroduodenoscopy - Endo with Anesthesia 1 05/26/18 Completed Capsule Endoscopy 2 04/19/18 Compl eted Stent x 2 cardiac 2015 Complet ed breast biopsy 3 Completed Hysterectomy Abdominal Co mpleted LEFT CTR Completed vein stripping Completed 1auto-populated from documented surgical case 2auto-populated from documented surgical case 3left Social History Social History Type Response Smoking Status Former smoker; Smoke less tobacco use: Never; Has the patient smoked in the last 365 days, even once? No entered on: 12/03/22 Sex Female Implantable Device List Procedure Provider Procedure Date Device Type Site Lower extremity Unknown 12/05/22 Non Biological Leg U pper Device Identifier Serial Number Lot or Batch Number Manufacturing Date Expiration Date Distinct Identification Code MRI Safety Implantable Status Assigning Authority Unknown [id number] Unknown Unknown Unknown Unknown Unknown Active Unknown Unknown [id number] Unknown Unknown Unknown Unknown Unknown Active Unknown Patient Care team information Care Team Personnel Name: Deja Hernadez DO Position: 2 Restricted Providers Member Role: Primary Care Physician Address: Address: [address] [place] [address] [place] [address] [place] Care Team Related Persons Name: COCO HERNÁNDEZ Name: SMILEY HERNÁNDEZ Name: BRIA HERNÁNDEZ
--- OUTSIDE RECORDS SUMMARY | 2023-04-08 13:32 | XMS_ITS | Continuity of Care Document ---
Author Name Unknown Organization [facility] [place] Address [address] [place] [address]- Care Team Providers Care Business Analyst E[employer] Name Role Phone Deja Hernadez DO Andriy Primary Care Physician [phone] Encounter [employer] Number [id number] Date(s): 12/05/22 - 12/05/22 [facility] [address] [place] [address]- [phone] Encounter Diagnosis Atheroscler of [place] artery of both legs with intermit claudication(Discharge Diagnosis) - 12/05/22 Discharge Disposition: .Discharge to Home (Routine) Attending Physician: Sunny Dietz MD Allergies, Adverse Reactions, Alerts Substance Reaction Severity Status isosorbide 1 Active Lipitor Headache Active Januvia 2 Active Ranexa Persistent headaches Active 1 doesn't remember reaction 2 doesn't remember reaction Assessment and Plan Future Appointments Appointment Date:01/07/2023 03:30:00 PM Scheduled Provider:Sunny Dietz MD Location:[facility] Appointment Type:Established Patient Medications aspirin 81 mg oral tablet 81 [...] Refill(s) 0 Start Date: 04/19/18 Status: Ordered FeroSul 325 mg (65 mg elemental iron) oral tablet 325 mg = 1 tab, By mouth, BID, last dose 05-17-2018, Refill(s) 0 Start Date: 04/19/18 Status: Ordered [...] 5/325 oral tablet 1 tab, By mouth, Q6H, PRN Pain Moderate, 30 tab, 0, 0, Substitution Permitted, [facility], 66, Height, 12/03/22 15:37:00 CDT, in Start Date: 12/04/22 Status: Ordered Percocet 5/325 oral tablet 1 tab, By mouth, Q4H, PRN Pain Moderate, 20 tab, 0, 0, Substitution Permitted, [facility], 68, Height, 12/05/22 8:38:00 CDT, in, 79.5, Weight, 12/05/22 8:38:00 CDT, kg Start Date: 12/05/22 Status: Ordered Plavix 75 mg oral tablet 75 mg = 1 tab, By mouth, Daily, # 30 tab, Refill(s) 0, Pharmacy: [facility], [id number], TAB, 1 tab By mouth Daily, 79.5, 12/05/22 8:38:00 CDT, kg, Weight Start Date: 12/05/22 Status: Ordered sertraline 100 mg oral tablet 100 mg = 1 tab, By mouth, Daily, # 30 tab, Refill(s) 0 Start Date: 04/19/18 Status: Ordered simvastatin 80 mg oral tablet 80 mg = 1 tab, PO, at bedtime, # 30 tab, Refill(s) 0 Start Date: 04/19/18 Status: Ordered Vitamin B12 1,000 mcg, By mouth, Daily, Refill(s) 0 Start Date: 05/25/18 Status: Ordered Problem List Condition Confirmation Course Effective Dates Status Health St atus Informant Ex-smoker Confirmed Active patient GI bleed Confirmed Active Iron deficiency anemia Confirmed Active Procedures Procedure Date Related Diagnosis Body Site Status INTRODUCTION CATHETER AORTA 12/05/22 Completed REVSC OPN/PRQ FEM/POP W/ATHR C/ANGIOP SM VSL 12/05/22 Completed REVSC OPN/PRQ ILIAC ART W/ST NT & ANGIOP IPSILATL 12/05/22 Completed REVSC OPN/PRQ ILIAC ART W/ST NT PLMT & ANGIOPLSTY 12/05/22 Completed SLCTV CATHJ 3RD+ ORD SLCTV A BDL PEL/LXTR BRNCH 12/05/22 Completed Esophagogastroduodenoscopy - Endo with Anesthesia 1 05/26/18 Completed Capsule Endoscopy 2 04/19/18 Compl eted Stent x 2 cardiac 2015 Complet ed breast biopsy 3 Completed Hysterectomy Abdominal Co mpleted LEFT CTR Completed vein stripping Completed 1auto-populated from documented surgical case 2auto-populated from documented surgical case 3left Results Laboratory List Name Date BMP 12/05/22 CBC-d 12/05/22 zCBC Automated Diff 12/05/22 Most recent to oldest [Reference Range]: 1 2 Bedside Glucose 211 mg/dL 1 (12/05/22 7:27 PM) 153 mg/dL 2 (12/05/22 8:40 AM) Anion Gap [2-15 mEq/L] 7 mEq/L (12/05/22 9:05 AM) Glucose, Serum/Plasma [70-100 mg/dL] 146 mg/dL *HI* (12/05/22 9:05 AM) WBC [4.8-10.8 Thous/mm3] 5.6 Thous/mm3 (12/05/22 9:05 AM) Hct [37.0-47.0 %] 30.0 % *LOW* (12/05/22 9:05 AM) Hgb [12.0-16.0 g/dL] 8.8 g/dL *LOW* (12/05/22 9:05 AM) RBC [4.20-5.40 Million/mm3] 3.49 Million /mm3 *LOW* (12/05/22 9:05 AM) MCV [80.0-100.0 fl] 86.0 fl (12/05/22:05 AM) MCH [26.0-34.0 pg] 25.2 pg *LOW* (12/05/22:05 AM) MCHC [31.0-36.5 g/dL] 29.3 g/dL *LOW* (12/05/22 9:05 AM) RDW [10.4-14.4 %] 15.6 % *HI* (12/05/22 9:05 AM) Platelets [130-440 Thous/mm3] 275 Thous/ mm3 (12/05/22:05 AM) MPV [9.4-12.4 fl] 9.2 fl *LOW* (12/05/22 9:05 AM) AutoNeutrophil [43.0-78.0 %] 55.8 % (12/05/22 9:05 AM) AutoLymphs [20.0-40.0 %] 33.6 % (12/05/22 9:05 AM) AutoMono [2.0-10.0 %] 7.0 % (12/05/22 9:05 AM) AutoEo [0.0-7.0 %] 2.3 % (12/05/22 9:05 AM) Sodium [136-145 mEq/L] 140 mEq/L (12/05/22:05 AM) Potassium [3.5-5.1 mEq/L] 4.6 mEq/L (12/05/22 9:05 AM) Chloride [98-107 mEq/L] 111 mEq/L *HI* (12/05/22 9:05 AM) AbsNeut [2.0-8.0 Thous/mm3] 3.1 Thous/mm 3 (12/05/22 9:05 AM) CO2 [21-32 mEq/L] 22 mEq/L (12/05/22 9:05 AM) BUN [7-18 mg/dL] 16 mg/dL (12/05/22 9:05 AM) Creatinine [0.55-1.02 mg/dL] 1.08 mg/dL *HI* (12/05/22 9:05 AM) AbsLymph [1.0-4.0 Thous/mm3] 1.9 Thous/m m3 (12/05/22 9:05 AM) AbsMono [0.1-1.0 Thous/mm3] 0.4 Thous/mm 3 (12/05/22 9:05 AM) AbsEo [0.0-0.5 Thous/mm3] 0.1 Thous/mm3 (12/05/22 9:05 AM) AbsBaso [0.0-0.2 Thous/mm3] 0.1 Thous/mm 3 (12/05/22 9:05 AM) AutoBaso [0.0-2.5 %] 1.1 % (12/05/22 9:05 AM) Calcium [8.3-10.6 mg/dL] 9.1 mg/dL (12/05/22 9:05 AM) eGFR [>=60 mL/min/1.73 m2] 51 mL/min/1.7 3 m2 *LOW* (12/05/22 9:05 AM) eGFR if [>=60 mL/min/1. 73 m2] 61 mL/min/1.73 m2 (12/05/22 9:05 AM) Imm. Grans % [0-5 %] <5 % (12/05/22 9:05 AM) Imm. Grans # [0.0-0.5 Thous/mm3] <0.5 Th ous/mm3 (12/05/22 9:05 AM) ANC-AbsNeutCount 3.1 Thous/mm3 *NA* (12/05/22 9:05 AM) 1Result Comment: Notify RN/DR Performed at:[facility], [address], [place], [address] Reference Ranges: Age 0 - 24 hours: 45 - 115 mg/dL Age 24 hours - 30 days: 55 - 115 mg/dL Age > 30 days: 70 - 100 mg/dL Critical Results Requiring Immediate Notification: Age <72 Hours: <40 or >350 mg/dL Age >72 Hours: <50 or >400 mg/dL 2Result Comment: Notify RN/DR Performed at:[facility], [address] [place], [address] Reference Ranges: Age 0 - 24 hours: 45 - 115 mg/dL Age 24 hours - 30 days: 55 - 115 mg/dL Age > 30 days: 70 - 100 mg/dL Critical Results Requiring Immediate Notification: Age <72 Hours: <40 or >350 mg/dL Age >72 Hours: <50 or >400 mg/dL Vital Signs Most recent to oldest [Reference Range]: 1 2 3 Blood Pressure 119/59 (12/05/22 7:20 PM) 153/70 (12/05/22 7:15 PM) 143/72 (12/05/22 7:00 PM) Height (inches) (Clinical) 68 in (12/05/22 8:38 AM) Weight (kg) (Clinical) 79.5 kg (12/05/22 8:38 AM) Social History Social History Type Response Smoking Status Former smoker; Smoke less tobacco use: Never; Has the patient smoked in the last 365 days, even once? No entered on: 12/03/22 Sex Female Hospital Discharge Instructions Patient Education 12/05/2022 14:44:34 Moderate Conscious Sedation, Adult, Care After Moderate Conscious Sedation, Adult, Care After This sheet gives you information about how to care for yourself after your procedure. Your health care provider may also give you more specific instructions. If you have problems or questions, contact your health care provider. What can I expect after the procedure? After the procedure, it is common to have: ??? Sleepiness for several hours. ??? Impaired judgment for several hours. ??? Difficulty with balance. ??? Vomiting if you eat too soon. Follow these instructions at home: For the time period you were told by your health care provider: ??? Rest. ??? Do not participate in activities where you could fall or become injured. ??? Do not drive or use machinery. ??? Do not drink alcohol. ??? Do not take sleeping pills or medicines that cause drowsiness. ??? Do not make important decisions or sign legal documents. ??? Do not take care of children on your own. Eating and drinking ??? Follow the diet recommended by your health care provider. ??? Drink enough fluid to keep your urine pale yellow. ??? If you vomit: ??? Drink water, juice, or soup when you can drink without vomiting. ??? Make sure you have little or no nausea before eating solid foods. General instructions ??? Take zisf-aeq-tnetnwk and prescription medicines only as told by your health care provider. ??? Have a responsible adult stay with you for the time you are told. It is important to have someone help care for you until you are awake and alert. ??? Do not smoke. ??? Keep all follow-up visits as told by your health care provider. This is important. Contact a health care provider if: ??? You are still sleepy or having trouble with balance after 24 hours. ??? You feel light-headed. ??? You keep feeling nauseous or you keep vomiting. ??? You develop a rash. ??? You have a fever. ??? You have redness or swelling around the IV site. Get help right away if: ??? You have trouble breathing. ??? You have new-onset confusion at home. Summary ??? After the procedure, it is common to feel sleepy, have impaired judgment, or feel nauseous if you eat too soon. ??? Rest after you get home. Know the things you should not do after the procedure. ??? Follow the diet recommended by your health care provider and drink enough fluid to keep your urine pale yellow. ??? Get help right away if you have trouble breathing or new-onset confusion at home. This information is not intended to replace advice given to you by your health care provider. Make sure you discuss any questions you have with your health care provider. Document Revised: 11/16/2020 Document Reviewed: 06/14/2020 [employer] Patient Education ?? 2021 [employer] 12/05/2022 14:44:34 Atherectomy, Care After Atherectomy, Care After The following information offers guidance on how to care for yourself after your procedure. Your health care provider may also give you more specific instructions. If you have problems or questions, contact your health care provider. What can I expect after the procedure? After the procedure, it is common to have: ??? A tender lump in your groin, ankle, or wrist. ??? Bruising. ??? Soreness. Follow these instructions at home: Incision site care ??? Follow instructions from your health care provider about how to take care of your incision. Make sure you: ??? Wash your hands with soap and water for at least 20 seconds before and after you change your bandage (dressing). If soap and water are not available, use hand gasateria attendant. ??? Change your dressing as told by your health care provider. ??? Leave any stitches (sutures), skin glue, or adhesive strips in place. These skin closures may need to stay in place for 2 weeks or longer. If adhesive strip edges start to loosen and curl up, youmay trim the loose edges. Do not remove adhesive strips completely unless your health care providertells you to do that. ??? Check your incision site every day for signs of infection. Check for: ??? Redness, swelling, or pain. ??? Fluid or blood. ??? Warmth. ??? Pus or a bad smell. ??? Do not take baths, swim, or use a hot tub until your health care provider approves. Ask your health care provider if you may take showers. Activity ??? Return to your normal activities as told by your health care provider. Ask your health care provider what activities are safe for you. ??? Do not lift anything that is heavier than 10 lb (4.5 kg), or the limit that you are told, untilyour health care provider says that it is safe. ??? If you were given a sedative during the procedure, it can affect you for several hours. Do not drive or operate machinery until your health care provider says that it is safe. Lifestyle ??? Make any lifestyle changes as recommended by your health care provider. These may include: ??? Not using any products that contain nicotine or tobacco. These products include cigarettes, chewing tobacco, and vaping devices, such as e-cigarettes. If you need help quitting, ask your health care provider. ??? Managing your weight. ??? Getting exercise on a regular basis. ??? Managing your blood pressure. ??? Limiting your alcohol intake. ??? Managing other health problems, such as diabetes. ??? Managing your cholesterol levels. ??? Eat a healthy diet. This should include plenty of fresh fruits and vegetables. Avoid foods thatare: ??? High in salt (sodium). ??? Canned or highly processed. ??? High in saturated fat or sugar. ??? Fried. General instructions ??? Take adhv-vpu-eofevsz and prescription medicines only as told by your health care provider. ??? Drink enough fluid to keep your urine pale yellow. ??? Keep all follow-up visits. This is important. Contact a health care provider if: ??? You have a fever or chills. ??? You have redness, swelling, or pain around your incision. ??? You have fluid or blood coming from your incision. ??? Your incision area feels warm to the touch. ??? You have pus or a bad smell coming from your incision. Get help right away if: ??? You have uncontrolled bleeding at your incision site. ??? You have chest pain. ??? You have trouble breathing. ??? Your toes are blue, discolored, or painful. Summary ??? After the procedure, it is common to have soreness, bruising, or a tender lump in your groin, ankle, or wrist where the catheter was inserted. ??? Return to your normal activities as told by your health care provider. Ask your health care provider what activities are safe for you. ??? Follow instructions from your health care provider about how to take care of your incision. Check your incision site every day for signs of infection. This information is not intended to replace advice given to you by your health care provider. Make sure you discuss any questions you have with your health care provider. Document Revised: 10/23/2021 Document Reviewed: 10/23/2021 [employer] Patient Education ?? 2021 [employer]. Follow Up Care 12/04/2022 07:10:20 With:Sunny Dietz Address: [address] [place] [address], [address] [place] [address] Business (1) When:01/07/2023 15:30:00 Comments:Follow up at 3:30 pm Patient Care team information Care Team Personnel Name: Deja Hernadez DO Position: 2 Restricted Providers Member Role: Primary Care Physician Address: Address: [address] [place] [address] [place] [address] [place] Care Team Related Persons Name: COCO HERNÁNDEZ Name: SMILEY HERNÁNDEZ Name: BRIA HERNÁNDEZ
--- OUTSIDE RECORDS SUMMARY | 2023-04-08 13:32 | XMS_ITS | Continuity of Care Document ---
Author Name Unknown Organization [facility] Address [address] [place], [address]- Care Team Providers Care Remediation Technician Name Role Phone PCP, NONE Primary Care Physician Unavailab le Encounter 12/03/22 - 12/04/22 [facility] [address] [place], [address]- Encounter Diagnosis Atherosclerosis of [place] arteries of extremities with rest pain, right leg (Discharge Diagnosis) - 12/03/22 Encounter for screening for other disorder(Discharge Diagnosis) - 12/04/22 Attending Physician: PCP, NONE Allergies, Adverse Reactions, Alerts Substance Reaction Severity Status isosorbide 1 Active Lipitor Headache Active Ranexa Persistent headaches Active Januvia 2 Active 1 doesn't remember reaction 2 doesn't remember reaction Assessment and Plan Extracted from: Title:Office Visit - Comprehensive Author:Asiya Traylor Date:12/03/22 1.??Atherosclerosis of nativ e arteries of extremities with rest pain, right leg(Atherosclerosis of [place] arteries of extremities with rest pain, right leg: I70.221) This patient has rest pain in her right foot which has gotten worse in the last few weeks. Her ADLs are significantly compromised as she cannot tolerate walking more than a few steps at at time.??A script for Percocet was sent to her pharmacy. Recommend an angiogram for further evaluation and intervention as deemed necessary. ??We will plan to schedule this for December 05. All questions answered. The patient is agreeable to this plan. ?? Risks including but not limited to bleeding, infection, dye reaction, damage to nerve, artery or vein, embolization, need for further procedures including urgent operation along with risk of amputation and were discussed. The patient understands that balloon angioplasty, stenting or atherectomy (or a combination) may be used. ? Ordered: Office Visit Level 3 New 30-44 min 66113 ?? I spent??35 minutes??with this patient including time spent with the patient counseling/answering questions, and reviewing the chart/diagnostic testing.?? This patient was also seen and evaluated by ??Mirela, who is agreeable with the plan of care.?? Addendum by Sunny Dietz MD on December 04, 2022 14:43:03 CDT Agree with above Patient seen and examined Plan for angiography in the catheterization lab Risks including need for open reconstruction have been disucssed Future Appointments Appointment Date:12/05/2022 09:45:00 AM Scheduled Provider: Location:[facility] Agricultural Systems Specialist Appointment Type:Surgery Appointment Date:01/07/2023 03:30:00 PM Scheduled Provider:Sunny Dietz MD Location:[facility] Appointment Type:Established Patient Medications aspirin 81 mg [...] Moderate, 30 tab, 0, 0, [facility]stitution Perm[facility], [facility], [facility], Height, 12/03/22 15:37:00 CDT, in Start Date: 12/04/22 Status: Ordered sertraline 100 mg oral tablet [...] Procedure Date Related Diagnosis Body Site Status Esophagogastroduodenoscopy - Endo with Anesthesia 1 05/26/18 Completed Capsule Endoscopy 2 04/19/18 Compl eted Stent x 2 cardiac 2015 Complet ed breast biopsy 3 Completed Hysterectomy Abdominal Co mpleted LEFT CTR Completed vein stripping Completed 1auto-populated from documented surgical case 2auto-populated from documented surgical case 3left Vital Signs Most recent to oldest [Reference Range]: 1 Blood Pressure 113/67 (12/03/22 3:34 PM) Height (inches) (Clinical) 66 in (12/03/22 3:34 PM) BMI (Clinical) 0 kg/m2 (12/03/22 3:34 PM) Social History Social History Type Response Smoking Status Former smoker; Smoke less tobacco use: Never; Has the patient smoked in the last 365 days, even once? No entered on: 12/03/22 Sex Female Vascular surgery Outpatient Note * Asiya Samayoa: PERFORM, MODIFY Event Display: Vascular Office/Clinic Note Authored Date: [id number] Chief Complaint New: Ref (Leroy) mild plaque in SMA, clacified plaque in proximal renal arteries, FLIP's, femoralartery stenosis bilaterally. CTA report in chart General Information Information Given By: Patient (12/03/22 15:34:00) Nurse Intake Nursing Intake?? General Information?? Pain Information?? Physicians and Specialties: Shana Medrano, ARTIFICIAL INSEMINATOR - PCP. Serjio Cortes, cardiology in [facility]. Sunny Dietz - Vascular (12/03/22) Pain at Best: 1 (12/03/22) Information Given By: Patient (12/03/22) Pain at Worst:??9??High (12/03/22) ?? Pain Location: RLE (12/03/22) ?? Pain ??Quality: Burning, cramping (12/03/22) ?? Pain Present: Yes actual or suspected pain (12/03/22) History of Present Illness This is a 67 year old female with diabetes and iron deficiency anemia who is seen here today on referral from Shana Harper for consult due to right leg atherosclerosis with rest pain. The patient is here today with her daughter. The patient reports that she has had intermittent right leg pain,primarily in her hip/thigh, with walking for many months. However, over the last 5-6 weeks she had hadconstant pain in the right foot. She has had several epidural injections at her lumbar back??for this reason and she did not get any relief from her pain. She can only tolerate walking about 5-6 steps due to the increase in pain at her right foot. She does not have any ulcers/wounds. She has no dependent edema. She had a CTA abd/pelvis done in [place] on 10/16/22 and this report was sent to this office with her records. This CT showed moderate plaque in her bilateral common iliac arteries. Review of Systems General Statement:All General Negative Eye Statement:All Eye negative ENT Statement:All ENT negative Cardiovascular Admits to:Claudication,Color changes in extremities Respiratory Statement:All Respiratory negative GI Statement:All Gastrointestinal negative Statement:All Genitourinary negative Musculoskeletal Admits to:Back pain Skin Statement:All Skin negative Neurologic Statement:All Neurologic negative Psychiatric Statement:All Psychiatric negative Endocrine Statement:All Endocrine negative Heme/Lymph Statement:All Heme/Lymph negative Allergy/Immunology Statement:All Allergy/Immunology negative Sleep Statement:All Sleep negative Physical Exam Vitals & Measurements HR:??106?? BP:??113/67?? HT:??66??in?? BMI:??0?? GENRL: Healthy appearing, age appropriate, in no acute distress. HEENT: Normocephalic. Sclera and conjunctiva are negative. Pupils equal and reactive to light. NECK: Full range of motion, trachea is midline. CARDIO: Regular rate and rhythm VASC: The right foot is not cold, but it is somewhat cooler than the left when compared bilaterally. Unable to locate either PT or DP signals with the doppler in the right foot. Strong monophasic DP and PT signals present in the left foot. No dependent edema. RESPIR: Unlabored respirations. ABD: Soft without distension. MSKTL:??Antalgic gait. ??Normal muscle strength and tone noted. SKIN: Intact without petechiae or ecchymosis. NEURO: Alert and oriented. Nonfocal examination. Cranial nerves grossly intact. Normal affect. Assessment/Plan 1.??Atherosclerosis of [place] arteries of extremities with rest pain, right leg(Atherosclerosis of [place] arteries of extremities with rest pain, right leg: I70.221) This patient has rest pain in her right foot which has gotten worse in the last few weeks. Her ADLsare significantly compromised as she cannot tolerate walking more than a few steps at at time.??A script for Percocet was sent to her pharmacy. Recommend an angiogram for further evaluation and intervention as deemed necessary. ??We will plan to schedule this for December 05. All questions answered. The patient is agreeable to this plan. ?? Risks including but not limited to bleeding, infection, dye reaction, damage to nerve, artery orvein, embolization, need for further procedures including urgent operation along with risk of amputation and were discussed. The patient understands that balloon angioplasty, stenting or atherectomy (or a combination) may be used. Ordered: Office Visit Level 3 New 30-44 min 14980 ?? Other I spent??35 minutes??with this patient including time spent with the patient counseling/answering questions, and reviewing the chart/diagnostic testing.?? This patient was also seen and evaluated by ??Mirela, who is agreeable with the plan of care.?? Problem List/Past Medical History GI bleed: ?? Iron deficiency anemia: ?? Procedure/Surgical History ???Esophagogastroduodenoscopy - Endo with Anesthesia (05/26/2018)???Capsule Endoscopy (04/19/2018)???Stent x 2 cardiac (2014)???breast biopsy???Hysterectomy Abdominal???LEFT CTR???vein stripping Medications Home Medications (12) Active aspirin 81 mg oral tablet??81 mg = 1 tab,Start_date: 04/19/18,Refills: 0, By mouth, Daily cilostazol 100 mg oral tablet??100 mg = 1 tab,Start_date: 04/19/18,Refills: 0, By mouth, BID ezetimibe 10 mg oral tablet??10 mg = 1 tab,Start_date: 04/19/18,Refills: 0, By mouth, Daily FeroSul 325 mg (65 mg elemental iron) oral tablet??325 mg = 1 tab,Start_date: 04/19/18,Refills: 0, By mouth, BID losartan 50 mg oral tablet??50 mg = 1 tab,Start_date: 04/19/18,Refills: 0, By mouth, Daily Lumigan 0.01% ophthalmic solution??1 Drops,Start_date: 05/25/18,Refills: 0, Both Eyes, QPM (every evening) metFORMIN 1000 mg oral tablet??1,000 mg = 1 tab,Start_date: 04/19/18,Refills: 0, By mouth, BID Metoprolol Succinate ER 25 mg oral tablet, extended release??12.5 mg = 0.5 tab,Start_date: 04/19/18,Refills: 0, By mouth, Daily nitroglycerin 0.4 mg sublingual spray??0.4 mg = 1 spray,Start_date: 05/25/18,Refills: 0, PRN, SL, Q5Min sertraline 100 mg oral tablet??100 mg = 1 tab,Start_date: 04/19/18,Refills: 0, By mouth, Daily simvastatin 80 mg oral tablet??80 mg = 1 tab,Start_date: 04/19/18,Refills: 0, PO, at bedtime Vitamin B12??1,000 mcg,Start_date: 05/25/18,Refills: 0, By mouth, Daily Medication reconciliation completed on this patient today Allergies Januvia Lipitor??(Headache) Ranexa??(Persistent headaches) isosorbide Social History Alcohol Past Substance Abuse Denies Tobacco Smoking Status: Former smoker. Smokeless tobacco use: Never. Has the patient smoked in the last 365days, even once? No. Family History COPD - Chronic obstructive pulmonary disease: MOTHER, FATHER and BROTHER. Diabetes mellitus: FATHER. Heart disease: FATHER. Hypertension: FATHER. Lung cancer: BROTHER. Other Reported Values Weight (lb) (Stated): 175 lb (12/03/22 15:34:00) Electronically signed by:Asiya Samayoa 12/04/22 13:47 * Sunny Dietz MD: PERFORM Event Display: Vascular Office/Clinic Note Authored Date: [id number] Agree with above Patient seen and examined Plan for angiography in the catheterization lab Risks including need for open reconstruction have been disucssed Electronically signed by:Sunny Dietz MD 12/04/22 14:47 Patient Care team information Care Team Personnel Name: PCP, NONE Position: 2 Restricted Providers Member Role: Primary Care Physician Care Team Related Persons Name: REI HERNÁNDEZ Name: SMILEY HERNÁNDEZ Name: ROSEMARIE COLLADO SR
--- OUTSIDE RECORDS SUMMARY | 2023-04-08 13:32 | XMS_ITS | Continuity of Care Document ---
Author Name Unknown Organization [facility] Address [address] [place], [address]- Care Team Providers Care Route Sales Person Name Role Phone Satya WHATLEY Deja Andriy Primary Care Physician Encounter 01/07/23 - 01/08/23 [facility] [address] [place], [address]- [place] Encounter Diagnosis Atherosclerosis of leg with intermittent claudication(Discharge Diagnosis) - 01/07/23 Encounter for screening for other disorder(Discharge Diagnosis) - 01/08/23 Attending Physician: Sunny Dietz MD Allergies, Adverse Reactions, Alerts Substance Reaction Severity Status isosorbide 1 Active Lipitor Headache Active Ranexa Persistent headaches Active Januvia 2 Active 1 doesn't remember reaction 2 doesn't remember reaction Assessment and Plan Extracted from: Title:Office Visit - Comprehensive Author:Asiya Traylor Date:01/07/23 1.??Atherosclerosis of leg w ith intermittent claudication(Atherosclerosis of [place] arteries of extremities with intermittent claudication, unspecified extremity: I70.219) 4 weeks s/p bilateral kissing iliac stent placement, right SFA and popliteal artery atherectomy and HUMAN RESOURCES SPECIALIST - she was encouraged to continue to increase her walking daily - recommend ABIs and right LE arterial US be done in 2-4 weeks for further evaluation; she would like to do these tests in [place] - will fax orders to [place] and request the reports be sent to our office - we will call her with the results of her testing and make further recommendations at that time - al questions answered ? Ordered: Office Visit Level 3 Established 20-29 min 77729 US VL ISIDRA Exam BTP US VL Duplex Arterial LE Right ?? I spent??20 minutes??with this patient including time spent with the patient counseling/answering questions, and reviewing the chart/diagnostic testing.?? This patient was also seen and evaluated by ??Mirela, who is agreeable with the plan of care.?? Addendum by Mirela SHARP, Sunny Noel on January 08, 2023 19:15:07 CDT Agree with above Patient seen and examined We will obtain ultrasound testing and call with results Future Scheduled Tests Radiology* US VL Duplex [...] Moderate, 20 tab, 0, 0, Substitution Permitted, [facility], 68, Height, 05/05/23 8:38:00 CDT, in, 79.5, Weight, 12/05/22 8:38:00 CDT, kg Start Date: 12/05/22 Status: Ordered Plavix 75 mg oral tablet 75 mg = 1 tab, By mouth, Daily, # 30 tab, Refill(s) 0, Pharmacy: [facility], [id number], TAB, 1 tab By mouth Daily, 79.5, [...] Problem List Condition Confirmation Course Effective Dates [facility] atus Informant Ex-smoker Confirmed Active patient GI [...] to oldest [Reference Range]: 1 Blood Pressure 103/65 (01/07/23 3:11 PM) Height (inches) (Clinical) 68 in (01/07/23 3:11 PM) BMI (Clinical) 0 kg/m2 (01/07/23 3:11 PM) Social History Social History Type Response [...] MRI Safety Implantable Status Assigning Authority Unknown [id number] Unknown Unknown Unknown Unknown Unknown Active Unknown Unknown [id number] Unknown Unknown Unknown Unknown Unknown Active Unknown Vascular surgery Outpatient Note * Asiya Samayoa: PERFORM, MODIFY Event Display: Vascular Office/Clinic Note Authored Date: [id number] Chief Complaint Est: s/p atherectomy R SFA & popliteal 12/05 General Information Information Given By: Patient (01/07/23 15:11:00) Nurse Intake Nursing Intake?? General Information?? Pain Information?? Physicians and Specialties: Deja Hernadez NP - PCPDr. Serjio Cortes, cardiology in [facility]. Sunny Dietz - Vascular (01/07/23) Pain Intensity: 5 (01/07/23) Information Given By: Patient (01/07/23) Pain at Best: 3 (01/07/23) ?? Pain at Worst:??6??High (01/07/23) ?? Pain Location: R groin catches, pain hips/thighs walking (01/07/23) ?? Pain Present: Yes actual or suspected pain (01/07/23) History of Present Illness Ms. Hernández comes in today for routine 4 week follow up after recent angiogram with Dr. Dietz. She had bilateral kissing iliac stents placed, along with atherectomy and HUMAN RESOURCES SPECIALIST of her right SFA and popliteal arteries. This was done to treat rest pain in her right LE. At first she responded that she had not been able to appreciate any improvements at all. However, after further discussion she related that her right leg, is in fact, doing better. She no longer has any rest pain, and additionally she is walking much better. She can walk further distances that before the procedure and she has found that she can do more chores/tasks around the house without pain. The access sites have healed well. Physical Exam Vitals & Measurements HR:??103?? BP:??103/65?? HT:??68??in?? BMI:??0?? GENRL: Healthy appearing, age appropriate, in no acute distress. A little anxious. HEENT: Normocephalic. Sclera and conjunctiva are negative. Pupils equal and reactive to light. NECK: Full range of motion, trachea is midline. CARDIO: Regular rate and rhythm VASC: Both feet are warm and well perfused. No dependent edema. RESPIR: Unlabored respirations. ABD: Soft without distension. MSKTL: Normal gait. Normal muscle strength and tone noted. SKIN: Intact without petechiae or ecchymosis. NEURO: Alert and oriented. Nonfocal examination. Cranial nerves grossly intact. Normal affect. Assessment/Plan 1.??Atherosclerosis of leg with intermittent claudication(Atherosclerosis of [place] arteries of extremities with intermittent claudication, unspecified extremity: I70.219) 4 weeks s/p bilateral kissing iliac stent placement, right SFA and popliteal artery atherectomy andPTA - she was encouraged to continue to increase her walking daily - recommend ABIs and right LE arterial US be done in 2-4 weeks for further evaluation; she would like to do these tests in [place] - will fax orders to [place] and request the reports be sent to our office - we will call her with the results of her testing and make further recommendations at that time - al questions answered ?? Ordered: Office Visit Level 3 Established 20-29 min 35902 US VL ISIDRA Exam BTP US VL Duplex Arterial LE Right ?? Other I spent??20 minutes??with this patient including time spent with the patient counseling/answering questions, and reviewing the chart/diagnostic testing.?? This patient was also seen and evaluated by ??Mirela, who is agreeable with the plan of care.?? Problem List/Past Medical History GI bleed: ?? Iron deficiency anemia: ?? Procedure/Surgical History ???Diamondback atherectomy of the right superficial femoral and popliteal arteries (12/05/2022)???Esophagogastroduodenoscopy - Endo with Anesthesia (05/26/2018)???Capsule Endoscopy (04/19/2018)???Stent x 2 cardiac (2014)???breast biopsy???Hysterectomy Abdominal???LEFT CTR???vein stripping Medications Home Medications (12) Active aspirin 81 mg oral tablet??81 mg = 1 tab,Start_date: 04/19/18,Refills: 0, By mouth, Daily cilostazol 100 mg oral tablet??100 mg = 1 tab,Start_date: 04/19/18,Refills: 0, By mouth, BID ezetimibe 10 mg oral tablet??10 mg = 1 tab,Start_date: 04/19/18,Refills: 0, By mouth, Daily losartan 50 mg oral tablet??50 mg = [...] 1 spray,Start_date: 05/25/18,Refills: 0, PRN, SL, Q5Min Percocet 5/325 oral tablet??1 tab,Start_date: 12/05/22,Refills: 0, PRN, By mouth, Q4H Plavix 75 mg oral tablet??75 mg = 1 tab,Start_date: 12/05/22,Refills: 0, By mouth, Daily sertraline 100 mg oral tablet??100 mg = 1 tab,Start_date: 04/19/18,Refills: 0, By mouth, Daily simvastatin 80 mg oral tablet??80 mg = 1 tab,Start_date: 04/19/18,Refills: 0, PO, at bedtime Medication reconciliation completed on this patient today Allergies Januvia Lipitor??(Headache) Ranexa??(Persistent headaches) isosorbide Social History Alcohol Past Employment/School Status: Retired. Exercise Frequency: None. Nutrition/Health Caffeine intake amount: Occasional. Substance Abuse Denies Tobacco Smoking Status: Former smoker. Smokeless tobacco use: Never. Has the patient smoked in the last 365days, even once? No. Family History COPD - Chronic obstructive pulmonary disease: MOTHER, FATHER and BROTHER. Diabetes mellitus: FATHER. Heart disease: FATHER. Hypertension: FATHER. Lung cancer: BROTHER. Electronically signed by:Asiya Samayoa 01/08/23 12:36 * Sunny Dietz MD: PERFORM Event Display: Vascular Office/Clinic Note Authored Date: [id number] Agree with above Patient seen and examined We will obtain ultrasound testing and call with results Electronically signed by:Sunny Dietz MD 01/08/23 19:15 Patient Care team information Care Team Personnel Name: Deja Hernadez DO Position: 2 Restricted Providers Member Role: Primary Care Physician Address: Address: [address] [place] [address] [place] [address] [place] Care Team Related Persons Name: COCO HERNÁNDEZ Name: SMILEY HERNÁNDEZ Name: BRIA HERNÁNDEZ
--- OUTSIDE RECORDS SUMMARY | 2023-04-08 13:32 | XMS_ITS | Continuity of Care Document ---
Author Name Unknown Organization [facility] Address [address] [place] [address]- Care Team Providers Care Rope Making Machine Operator Name Role Phone PCP, NONE Primary Care Physician Unavailab le Encounter [employer] Number [id number] Date(s): 12/03/22 - 12/04/22 [facility] [address] [facility] [address] [facility] [address] Attending Physician: Sunny Dietz MD Allergies, Adverse Reactions, Alerts Substance Reaction Severity Status isosorbide 1 Active Lipitor Headache Active Ranexa Persistent headaches Active Januvia 2 Active 1 doesn't remember reaction 2 doesn't remember reaction Assessment and Plan Future Appointments Appointment Date:12/05/2022 09:45:00 AM Scheduled Provider: Location:[facility] Appointment Type:Surgery Appointment Date:01/07/2023 03:30:00 PM Scheduled [...] Moderate, 30 tab, 0, 0, Substitution Permitted, [facility], 66, Height, 12/03/22 15:37:00 CDT, [...] once? No entered on: 12/03/22 Sex Female Patient Care team information Care Team Personnel Name: PCP, NONE Position: 2 Restricted Providers Member Role: Primary Care Physician Care Team Related Persons Name: REI HERNÁNDEZ Name: SMILEY HERNÁNDEZ Name: ROSEMARIE COLLADO SR
[2023-04-08 14:53] LABS: Basophils # 0.1 10^3/uL (0.0-0.1); Basophils % 0.9 %; Eosinophils # 0.1 10^3/uL (0.0-0.8); Eosinophils % 1.6 %; Hematocrit 34.4 % (36-47); Lymphocytes # 1.6 10^3/uL (0.8-4.8); Lymphocytes % 29.7 %; Mean Corpuscular HGB Conc 29.4 g/dL (30-55); Mean Corpuscular Hemoglobin 23.5 pg (27-33); Mean Platelet Volume 8.8 fL (7.4-10.4); Monocytes # 0.3 10^3/uL (0.2-0.9); Monocytes % 5.7 %; Neutrophils % 62.1 %; Nucleated Red Blood Cells % 0 %; Platelet Count 325 10^3/cmm (157-399); Red Cell Distribution Width 24.5 % (12.1-15.1); White Blood Count 5.48 10^3/uL (3.29-11.43)
[2023-04-08] MEDS: iron sucrose 200 MG in sodium chloride 0.9% (100 ml) 100 ML 220 MG IV (14:55)
[2023-04-08 15:25] VITALS: BP 91/58; PULSE 90; RESP 16; TEMP 36.1; O2SAT 96
[2023-04-08 15:32] LABS: Alanine Aminotransferase 30 U/L (0-33); Albumin Level 4.5 g/dL (3.5-5.2); Alkaline Phosphatase 97 U/L (35-105); Anion Gap 17.6 (5-19); Aspartate Amino Transferase 34 U/L (0-32); Blood Urea Nitrogen 31 mg/dL (8-23); Calcium 10.1 mg/dL (8.5-10.5); Carbon Dioxide 25 mmol/L (22-29); Chloride 100 mmol/L (98-107); Globulin 3.4 g/dL (1.3-4.6); Glucose 216 mg/dL (65-115); Immunoglobulin IGA 379 mg/dL (70-400); Immunoglobulin IGG 1327 mg/dL (700-1600); Immunoglobulin IGM 67 mg/dL (40-230); Osmolality Calculated 297 mOsm/kg (285-295); Potassium 5.6 mmol/L (3.5-5.1); Sodium 137 mmol/L (136-145); Total Bilirubin 0.2 mg/dL (0.15-1.2); Total Protein 7.9 g/dL (6.6-8.7)
[2023-04-10 10:35] VITALS: BP 107/60; PULSE 107; RESP 16; TEMP 36.3; O2SAT 97
[2023-04-10] MEDS: iron sucrose 200 MG in sodium chloride 0.9% (100 ml) 100 ML 220 MG IV (10:50)
[2023-04-10 11:25] VITALS: BP 133/69; PULSE 100; RESP 16; TEMP 36.2; O2SAT 96
[2023-04-13 14:28] VITALS: BP 94/58; PULSE 93; RESP 18; TEMP 35.9; O2SAT 98
[2023-04-13] MEDS: sodium chloride 0.9% 250 ML 100 ML IV (14:35)
[2023-04-13] MEDS: iron sucrose 200 MG in sodium chloride 0.9% (100 ml) 100 ML 220 MG IV (14:48)
[2023-04-13 15:19] VITALS: BP 100/66; PULSE 98; RESP 18; TEMP 36.4; O2SAT 97
[2023-04-15 15:00] VITALS: BP 109/61; PULSE 98; RESP 18; TEMP 36.1
[2023-04-15] MEDS: sodium chloride 0.9% 250 ML 75 ML IV (15:04)
[2023-04-15] MEDS: iron sucrose 200 MG in sodium chloride 0.9% (100 ml) 100 ML 220 MG IV (15:21)
[2023-04-15 16:21] VITALS: BP 109/59; PULSE 86; TEMP 36.3; O2SAT 95
[2023-04-17 10:40] VITALS: BP 136/64; PULSE 97; RESP 16; TEMP 35.9; O2SAT 97
[2023-04-17] MEDS: iron sucrose 200 MG in sodium chloride 0.9% (100 ml) 100 ML 220 MG IV (10:45)
[2023-04-17 11:15] VITALS: BP 124/69; PULSE 93; RESP 16; TEMP 36.2; O2SAT 95
== END 2023-05-02 23:59 | disposition home or self-care (01) ==
PROVIDERS: PCP Nurse Practitioner Family; Visit Provider Internal Medicine Medical Oncology
DX: D50.9 Iron deficiency anemia, unspecified (principal)
CPT/HCPCS: 80053; 82784; 85025; 96365; 99204; 99214; J1756; J7050

== ENCOUNTER 2023-04-21 14:03 | Outpatient (CLI) | payer MEDICARE, MEDICAID, SELFPAY ==
--- NOTE | 2023-04-21 14:18 | MM_ITS ---
WS: [id number] BILATERAL 3D TOMOSYNTHESIS DIGITAL SCREENING MAMMOGRAPHY WITH CAD CLINICAL INFORMATION: SCREENING HISTORY: Screening mammogram. No current complaints. COMPARISON: None. TECHNIQUE: Bilateral CC and MLO views. FINDINGS: Scattered fibroglandular densities bilaterally. No suspicious focal mass, asymmetry, calcifications, or architectural distortion. No evidence of malignancy. Vascular calcifications. Lucent centered calc ifications. IMPRESSION: MM/[place] [id number] BI-RADS: 2-Benign FOLLOW UP: 1 Year Follow-up Recommend return to annual screening mammography.
== END 2023-04-21 14:04 | disposition home or self-care (01) ==
PROVIDERS: PCP Nurse Practitioner Family; Visit Provider Nurse Practitioner Family
DX: Z12.31 Encounter for screening mammogram for malignant neoplasm of breast (principal)
CPT/HCPCS: 77063; 77067

== ENCOUNTER 2023-05-26 11:26 | Outpatient (CLI) | payer MEDICARE, SELFPAY ==
--- NOTE | 2023-05-26 11:41 | MR_ITS ---
WS: [id number] EXAMINATION: MR hip RT wo con* [id number] ORDER DATE: 05/26/2023 12:04 PM COMPARISON: None. HISTORY: M16.9 - Osteoarthritis of hip, unspecified CONTRAST: None. TECHNIQUE: Coronal STIR of the Pelvis. Coronal proton density, coronal T1, axial T2 fat sat, axial T1 , sagittal T2 fat sat, and sagittal T1 performed of the hip. FINDINGS: Moderate degenerative arthritis RIGHT hip with joint space narrowing. Hypertrophic changes about the acetabulum. Normal bone marrow signal in the femoral head and femoral neck. Proximal RIGHT femoral sh aft appears normal. No evidence of avascular necrosis. No acute fractures. Visualized RIGHT pubic rami are normal in appearance. Normal greater trochanter. Trace edema along th e greater trochanter. No RIGHT inguinal lymphadenopathy. Normal bone marrow signal in the sacrum and bony pelvis. No sacral insufficiency fractures. Normal bone marrow signal in the LEFT hip. IMPRESSION: 1. Moderate degenerative narrowing RIGHT hip. No acute fractures. 2. No evidence of avascular necrosis in the RIGHT hip. Normal RIGHT femoral head and neck. 3. Trace minimal edema in the greater trochanter soft tissues can be seen with minimal trochanteric bursitis. No fluid collections. 4. No significant joint effusion. 5. No other suspicious findings.
== END 2023-05-26 11:27 | disposition home or self-care (01) ==
LOC: RAD 11:27
PROVIDERS: PCP Nurse Practitioner Family; Visit Provider Anesthesiology Pain Medicine
DX: M16.11 Unilateral primary osteoarthritis, right hip (principal)
CPT/HCPCS: 73721

== ENCOUNTER → 2023-06-01 08:53 | Outpatient (BNVA) | payer MEDICARE, MEDICAID, SELFPAY | PROVIDERS: PCP Nurse Practitioner Family; Visit Provider Anesthesiology Pain Medicine | DX: M54.50 Low back pain, unspecified (principal); M16.11 Unilateral primary osteoarthritis, right hip | CPT/HCPCS: 99214 ==

== ENCOUNTER 2023-06-02 12:07 | Oncology outpatient (recurring) (ONCR) | payer MEDICARE, MEDICAID, SELFPAY ==
[2023-06-02 12:30] VITALS: BP 91/60; PULSE 115; RESP 16; TEMP 36.3; O2SAT 98
[2023-06-02 12:35] LABS: Basophils # 0.1 10^3/uL (0.0-0.1); Basophils % 1.5 %; Eosinophils # 0.1 10^3/uL (0.0-0.8); Eosinophils % 2.2 %; Hematocrit 30.4 % (36-47); Lymphocytes # 1.4 10^3/uL (0.8-4.8); Lymphocytes % 42.1 %; Mean Corpuscular HGB Conc 30.3 g/dL (30-55); Mean Corpuscular Hemoglobin 27.3 pg (27-33); Mean Corpuscular Volume 90.2 fl (85-98); Mean Platelet Volume 8.4 fL (7.4-10.4); Monocytes # 0.3 10^3/uL (0.2-0.9); Neutrophils # 1.49 10^3/uL (1.8-7.7); Neutrophils % 46.2 %; Nucleated Red Blood Cells % 0 %; Platelet Count 248 10^3/cmm (157-399); Red Blood Count 3.37 10^6/uL (3.85-5.65); Red Cell Distribution Width 18.7 % (12.1-15.1); White Blood Count 3.23 10^3/uL (3.29-11.43)
[2023-06-02 12:56] LABS: Ferritin 184 ng/mL (15-150); Iron 44 ug/dL (37-145); Total Iron Binding Capacity 275 mcg/dl; Unsaturated Iron Binding 231 ug/dL (112-347)
== END 2023-06-02 23:59 | disposition home or self-care (01) ==
PROVIDERS: PCP Nurse Practitioner Family; Visit Provider Internal Medicine Medical Oncology
DX: D50.9 Iron deficiency anemia, unspecified (principal); M43.16 Spondylolisthesis, lumbar region; M47.816 Spondylosis without myelopathy or radiculopathy, lumbar region; M16.11 Unilateral primary osteoarthritis, right hip; M51.17 Intervertebral disc disorders with radiculopathy, lumbosacral region; Z79.899 Other long term (current) drug therapy
CPT/HCPCS: 36415; 82728; 83540; 83550; 85025; 99214

== ENCOUNTER → 2023-06-15 15:27 | Outpatient (BNVA) | payer MEDICARE, MEDICAID, SELFPAY | PROVIDERS: PCP Nurse Practitioner Family; Visit Provider Internal Medicine Cardiovascular Disease | DX: I25.10 Atherosclerotic heart disease of native coronary artery without angina pectoris (principal); I10 Essential (primary) hypertension; E78.2 Mixed hyperlipidemia; I65.23 Occlusion and stenosis of bilateral carotid arteries; D50.0 Iron deficiency anemia secondary to blood loss (chronic); E13.51 Other specified diabetes mellitus with diabetic peripheral angiopathy without gangrene; Z79.4 Long term (current) use of insulin; Z87.891 Personal history of nicotine dependence | CPT/HCPCS: 99214 ==

== ENCOUNTER 2023-07-01 13:30 | Oncology outpatient (recurring) (ONCR) | payer MEDICARE, SELFPAY ==
[2023-07-01 13:45] VITALS: BP 104/68; PULSE 92; O2SAT 100
[2023-07-01 14:02] LABS: Basophils # 0.1 10^3/uL (0.0-0.1); Eosinophils # 0.1 10^3/uL (0.0-0.8); Eosinophils % 2.1 %; Hematocrit 30.3 % (36-47); Lymphocytes # 1.7 10^3/uL (0.8-4.8); Lymphocytes % 34.1 %; Mean Corpuscular HGB Conc 30.4 g/dL (30-55); Mean Corpuscular Hemoglobin 27.5 pg (27-33); Mean Corpuscular Volume 90.7 fl (85-98); Mean Platelet Volume 8.7 fL (7.4-10.4); Monocytes # 0.2 10^3/uL (0.2-0.9); Monocytes % 4.5 %; Neutrophils # 2.83 10^3/uL (1.8-7.7); Neutrophils % 58.1 %; Nucleated Red Blood Cells % 0 %; Platelet Count 296 10^3/cmm (157-399); Red Blood Count 3.34 10^6/uL (3.85-5.65); Red Cell Distribution Width 15.9 % (12.1-15.1); White Blood Count 4.87 10^3/uL (3.29-11.43)
[2023-07-01 14:23] LABS: Alanine Aminotransferase 14 U/L (0-33); Albumin Level 4.1 g/dL (3.5-5.2); Alkaline Phosphatase 88 U/L (35-105); Anion Gap 18.4 (5-19); Aspartate Amino Transferase 19 U/L (0-32); Blood Urea Nitrogen 33 mg/dL (8-23); Calcium 9.3 mg/dL (8.5-10.5); Carbon Dioxide 21 mmol/L (22-29); Chloride 103 mmol/L (98-107); Ferritin 37 ng/mL (15-150); Globulin 3.1 g/dL (1.3-4.6); Glucose 168 mg/dL (65-115); Iron 38 ug/dL (37-145); Osmolality Calculated 297 mOsm/kg (285-295); Percent Saturation 11.3 % (20-50); Potassium 4.4 mmol/L (3.5-5.1); Sodium 138 mmol/L (136-145); Total Bilirubin 0.2 mg/dL (0.15-1.2); Total Iron Binding Capacity 336 mcg/dl; Total Protein 7.2 g/dL (6.6-8.7); Unsaturated Iron Binding 298 ug/dL (112-347)
== END 2023-07-02 23:59 | disposition home or self-care (01) ==
PROVIDERS: Nurse Practitioner Family; PCP Nurse Practitioner Family; Visit Provider Internal Medicine Medical Oncology
DX: D50.9 Iron deficiency anemia, unspecified (principal); M43.16 Spondylolisthesis, lumbar region; M47.816 Spondylosis without myelopathy or radiculopathy, lumbar region; M16.11 Unilateral primary osteoarthritis, right hip
CPT/HCPCS: 36415; 80053; 82728; 83540; 83550; 85025; 99213

== ENCOUNTER 2023-07-28 14:30 | Oncology outpatient (recurring) (ONCR) | payer MEDICARE, MEDICAID, SELFPAY ==
[2023-07-07 15:03] VITALS: BP 147/83; PULSE 102; RESP 18; TEMP 36.3; O2SAT 100
[2023-07-07] MEDS: iron sucrose 200 MG in sodium chloride 0.9% (100 ml) 100 ML 220 MG IV (15:06)
[2023-07-07] MEDS: sodium chloride 0.9% (100 ml) 100 ML 75 ML (15:07)
[2023-07-07 16:15] VITALS: BP 145/86; PULSE 78; RESP 17; TEMP 36.9; O2SAT 97
[2023-07-09 14:44] VITALS: BP 107/80; PULSE 78; RESP 16; TEMP 35.7; O2SAT 98
[2023-07-09] MEDS: iron sucrose 200 MG in sodium chloride 0.9% (100 ml) 100 ML 220 MG IV (15:26)
[2023-07-09 16:05] VITALS: BP 119/74; PULSE 100; RESP 18; TEMP 36.6; O2SAT 98
[2023-07-22] MEDS: sodium chloride 0.9% 250 ML 75 ML IV (14:32)
[2023-07-22] MEDS: iron sucrose 200 MG in sodium chloride 0.9% (100 ml) 100 ML 220 MG IV (14:40)
[2023-07-22 15:15] VITALS: BP 101/67; PULSE 92; RESP 16; TEMP 36.3; O2SAT 98
[2023-07-24 10:35] VITALS: BP 101/67; PULSE 102; RESP 16; TEMP 37; O2SAT 100
[2023-07-24] MEDS: sodium chloride 0.9% 250 ML 75 ML IV (10:40)
[2023-07-24] MEDS: iron sucrose 200 MG in sodium chloride 0.9% (100 ml) 100 ML 220 MG IV (10:40)
== END 2023-08-02 23:59 | disposition home or self-care (01) ==
PROVIDERS: PCP Nurse Practitioner Family; Visit Provider Internal Medicine Medical Oncology
DX: D50.9 Iron deficiency anemia, unspecified (principal); M43.16 Spondylolisthesis, lumbar region; M47.816 Spondylosis without myelopathy or radiculopathy, lumbar region; M16.11 Unilateral primary osteoarthritis, right hip
CPT/HCPCS: 96365; J1756; J7050

== ENCOUNTER 2023-09-02 08:37 | Oncology outpatient (recurring) (ONCR) | payer BC, MEDICAID, SELFPAY ==
[2023-09-02 09:17] LABS: Basophils % 1.2 %; Eosinophils # 0.1 10^3/uL (0.0-0.8); Eosinophils % 2.9 %; Hematocrit 27.3 % (36-47); Lymphocytes # 0.9 10^3/uL (0.8-4.8); Lymphocytes % 27.3 %; Mean Corpuscular Hemoglobin 27.8 pg (27-33); Mean Corpuscular Volume 92.5 fl (85-98); Mean Platelet Volume 8.3 fL (7.4-10.4); Monocytes # 0.2 10^3/uL (0.2-0.9); Monocytes % 5.6 %; Neutrophils # 2.15 10^3/uL (1.8-7.7); Nucleated Red Blood Cells % 0 %; Platelet Count 262 10^3/cmm (157-399); Red Blood Count 2.95 10^6/uL (3.85-5.65); Red Cell Distribution Width 17.1 % (12.1-15.1); White Blood Count 3.41 10^3/uL (3.29-11.43)
[2023-09-02 09:43] LABS: Alanine Aminotransferase 15 U/L (0-33); Alkaline Phosphatase 87 U/L (35-105); Anion Gap 15.4 (5-19); Aspartate Amino Transferase 35 U/L (0-32); Blood Urea Nitrogen 10 mg/dL (8-23); Calcium 9.3 mg/dL (8.5-10.5); Carbon Dioxide 24 mmol/L (22-29); Chloride 106 mmol/L (98-107); Globulin 3.3 g/dL (1.3-4.6); Glomerular Filtration Rate 54.2 mL/min (90-130); Glucose 190 mg/dL (65-115); Osmolality Calculated 296 mOsm/kg (285-295); Potassium 4.4 mmol/L (3.5-5.1); Sodium 141 mmol/L (136-145); Thyroid Stimulating Hormone 3.27 uIU/mL (0.27-4.20); Total Bilirubin 0.2 mg/dL (0.15-1.2); Total Protein 7.3 g/dL (6.6-8.7)
[2023-09-02 10:49] LABS: Folate Level 11.2 ng/mL (4.8-37.3)
[2023-09-02 13:42] LABS: Reticulocyte % 2.1 % (0.5-2.0)
[2023-09-02 13:52] LABS: LAB Peripheral Smear Sent for Review
[2023-09-02 13:58] LABS: Ferritin 67 ng/mL (15-150); Iron 22 ug/dL (37-145); Lactate Dehydrogenase 113 U/L (135-214); Percent Saturation 6.6 % (20-50); Total Iron Binding Capacity 329 mcg/dl; Unsaturated Iron Binding 307 ug/dL (112-347)
[2023-09-02 14:14] LABS: Vitamin B12 642 pg/mL (232-1245)
[2023-09-04 12:48] LABS: KAPPA/LAMBDA LIGHT CHAINS FREE 1.88 (0.26-1.65); LAMBDA LIGHT CHAIN, FREE, SERU 28.8 mg/L (5.7-26.3)
== END 2023-09-02 23:59 | disposition home or self-care (01) ==
PROVIDERS: Nurse Practitioner Family; PCP Nurse Practitioner Family; Visit Provider Internal Medicine Medical Oncology
DX: D50.9 Iron deficiency anemia, unspecified (principal); Z79.899 Other long term (current) drug therapy
CPT/HCPCS: 36415; 80053; 82607; 82728; 82746; 83010; 83540; 83550; 83615; 83883; 84443; 85025; 85045; 86850; 86900; 86920

== ENCOUNTER 2023-09-11 23:33 | Emergency (ER) | payer MEDICARE, MEDICAID, SELFPAY ==
--- NOTE | 2023-09-12 00:27 | CTR_ITS ---
PROCEDURE INFORMATION: Exam: CT Head Without Contrast Exam date and time: 09/12/2023 12:44 AM Age: 68 years old Clinical indication: Pain; Headache; Patient HX: C/O T[place]; Additional info: Headache vision changes TECHNIQUE: Imaging protocol: Computed tomography of the head without contrast. Radiation optimization: All CT scans at this facility use at least one of these dose optimization techniques: automated exposure control; mA and/or kV adjustment per patient size (includes targeted exams where dose is matched to clinical indication); or iterative reconstruction. COMPARISON: CT head wo con* [id number] 03/29/2018 11:34 AM RADIATION DOSE METRICS: Total DLP (mGy-cm): 1132.84 FINDINGS: Brain: No acute intracranial hemorrhage. No acute territorial region of ahn-white dedifferentiation. No extra-axial collection. No mass effect or midline shift. Generalized parenchymal volume loss. Cerebral ventricles: No acute hydrocephalus. Paranasal sinuses: Visualized sinuses are well-aerated. No fluid levels. Mastoid air cells: Visualized mastoid air cells are well aerated. Orbital cavities: No acute abnormality. Bones/joints: No acute calvarial fracture. Soft tissues: No acute abnormality. CT/CT head wo con* [id number] IMPRESSION: No acute intracranial hemorrhage or evidence of acute territorial infarct. If there is high clinical suspicion for acute infarct, recommend MRI as CT sensitivity is limited.
--- NOTE | 2023-09-12 00:27 | USR_ITS ---
PROCEDURE INFORMATION: Exam: US Duplex Right Lower Extremity Veins, Limited Exam date and time: 09/12/2023 1:23 AM Age: 68 years old Clinical indication: Pain; Leg, lower; Right; Additional info: Rle edema pain, recent stents in rle TECHNIQUE: Imaging protocol: Real-time duplex ultrasound of the right extremity with 2-D ahn scale, color Doppler flow and spectral waveform analysis including responses to compression and other maneuvers (when performed) with image documentation. Limited exam was focused on the right lower extremity veins. COMPARISON: US soft tissue/extremity [id number] 05/14/2022 3:05 PM FINDINGS: Right deep veins: Unremarkable. The common femoral, femoral, proximal profunda femoral , popliteal, and imaged proximal posterior tibial and peroneal veins are patent without thrombus. Normal Doppler waveforms. Normal compressibility and/or augmentation response. Superficial veins: Unremarkable. Saphenofemoral junction is patent without thrombus. Soft tissues: Edema. US/[place] [id number] IMPRESSION: No evidence of deep vein thrombosis.
--- NOTE | 2023-09-12 00:30 | XRR_ITS ---
PROCEDURE INFORMATION: Exam: XR Chest Exam date and time: 09/12/2023 12:40 AM Age: 68 years old Clinical indication: Shortness of breath; Patient HX: C/O SOB; Additional info: Short of breath TECHNIQUE: Imaging protocol: Radiologic exam of the chest. Views: 1 view. COMPARISON: CR XR chest 1V portable [id number] 06/09/2022 12:44 AM FINDINGS: Lungs: No consolidation. Pleural spaces: No large pleural effusion. No pneumothorax. Heart/Mediastinum: Unremarkable. No cardiomegaly. Bones/joints: No acute abnormality. XR/XR chest 1V portable [id number] IMPRESSION: No acute findings.
--- NOTE | 2023-09-12 00:37 | ED_ITS ---
HPI - Extremity Problem 2 General: Chief complaint: Extremity Problem,Nontraumatic Stated complaint: swelling sob pain in head Time Seen by Provider: 09/12/23 00:23 History of Present Illness: Patient presents to the ER with complaints of right lower extremity swelling, shortness of breath and headache with vision changes. Patient just had balloon angioplasty and possibly stent placed in her right lower extremity in [place] approximately 5 days ago and started right lower extremity swelling ever since then. Patient also has a headache is global in distribution and she says she does not hardly ever get headaches and she also says her vision is off-and-on blurry. Patient has no history of heart failure Review of Systems 2 General: Reports: 10 or more systems reviewed and unremarkable except in HPI and below PFSH ED 2 PFSH: Medical History Hypochromic microcytic anemia DJD (degenerative joint disease) Diabetes Atypical chest pain Atherosclerotic heart disease of [place] coronary artery without angina pectoris Asymptomatic bilateral carotid artery stenosis Varicose ulcer of right lower extremity Hypertension Hyperlipemia, mixed PCO Anemia Peripheral vascular disease of extremity with claudication Diabetes 1.5, managed as type 2 Surgical History H/O esophagogastroduodenoscopy 10/06/19: normal Status post colonoscopy 10/06/19: normal History of hysterectomy (~1982) History of coronary artery stent placement Family History Father Hypertension Diabetes CAD (coronary artery disease) myocardial infarction age 70 Denies family history of Anesthesia complication Bleeding disorder Social History Smoking and tobacco/nicotine status: former use of tobacco/nicotine Quit status (tobacco/nicotine): has quit using Former quit date comment: Quit in the s, smoked x 10 years Second hand smoke exposure: No Alcohol intake: never Substance/Drug Use: never Adopted: No Caregiver/support person: Yes Lives independently: Yes Household members: none Housing: House Marital status: Single service: No Current occupational status: disabled Current occupational exposures/hazards: No Pets and animals: No Sexually active: No Do you think of yourself as: Straight/Heterosexual Current gender identity: Female Bianka/Presybeterian: None Special bianka needs: No Agree to transfusion: No Physical Exam 2 Const: COMMON NORMALS: no acute distress, average body habitus, patient oriented x3, no limitations, healthy appearing, alert and well nourished HENMT: COMMON NORMALS: normocephalic, atraumatic, hearing grossly normal bilaterally, external ears normal, Normal external nose present, moist oral mucous membranes and oropharynx normal HEAD & SCALP: normocephalic and atraumatic NOSE: Normal external nose present EXTERNAL EAR: Yes external ears normal Eye: COMMON NORMALS: Equal, round and reactive pupils present, EOMs intact bilaterally, conjunctivae normal and no scleral icterus CONJUNCTIVA: Yes conjunctivae normal PUPIL: Yes Equal, round and reactive pupils present Neck/C-Spine: COMMON NORMALS: full ROM, no lymphadenopathy, supple, no meningeal signs, no JVD and Thyroid normal THYROID: Thyroid normal Chest: COMMONS NORMALS: normal inspection of the chest and normal palpation of entire chest wall Resp: COMMON NORMALS: normal respiratory effort, No retractions, No use of accessory muscles and clear to auscultation bilaterally AUSCULTATION: clear to auscultation bilaterally Cardio: COMMON NORMALS: no JVD, regular rate, regular rhythm, S1 normal heart sound present, S2 normal heart sound present, No gallops present (Cardio), No clicks present (Cardio), No murmurs present (Cardio) and No rub (Cardio) R ATE: regular rate RHYTHM: regular rhythm HEART SOUNDS: S1 normal heart sound present and S2 normal heart sound present GI: COMMON NORMALS: Normal to inspection, nondistended, normoactive bowel sounds present, Soft to palpation, non-tender, No hepatosplenomegaly present and no masses PALPATION: Yes Soft to palpation and Yes No hepatosplenomegaly present Extremity: NARRATIVE EXTREMITY EXAM: 1-2+ pitting edema right lower extremity up to the knee, left lower extremity no edema Neuro: COMMON NORMALS: patient oriented x3 SENSORIUM/ORIENTATION: Yes alert MENINGEAL SIGNS: Yes no meningeal signs Course 2 Vital Signs: Vital signs: Vital Signs Pulse Rate 89 09/12/23 03:32 Respiratory Rate 16 09/12/23 03:32 Pulse Oximetry 97 09/12/23 03:32 MDM - Extremity (Nontraumatic) Medical Decision Making Patient had a physical exam, lab work was essentially unremarkable patient was anemic with a hemoglobin of 8.4 and mildly elevated creatinine 1.3,, head CT showed no acute intracranial hemorrhage, venous duplex of the right leg showed no DVT, chest x-ray showed no acute findings. These results was discussed with the patient. Patient given 20 mg Lasix here and and prescription to go home on. Patient to follow-up with her PCP or advanced practice rn for further evaluation and treatment. Differential Diagnosis Unlikely herpes zoster, gout, cellulitis, superficial thrombophlebitis, deep venous thrombosis of upper extremity, lower extremity edema or deep vein thrombosis of lower extremity Medical Records I reviewed the patient's medical records. Lab Data I reviewed the patient's lab results. 09/12/23 01:03 09/12/23 01:[address] 09/12/23 00:27 IMPRESSION: No acute intracranial hemorrhage or evidence of acute territorial infarct. If there is high clinical suspicion for acute infarct, recommend MRI as CT sensitivity is limited. Venous Duplex 09/12/23 00:27 IMPRESSION: No evidence of deep vein thrombosis. Chest X-Ray 09/12/23 00:30 IMPRESSION: No acute findings. Laboratory Results WBC 5.96 10^3/uL (3.29-11.43) 09/12/23 01:03 RBC 3.02 10^6/uL (3.85-5.65) L 09/12/23 01:03 Hgb 8.40 g/dL (11.27-16.99) L 09/12/23 01:03 Hct 27.2 % (36-47) L 09/12/23 01:03 MCV 90.1 fl (85-98) 09/12/23 01:03 MCH 27.8 pg (27-33) 09/12/23 01:03 MCHC 30.9 g/dL (30-55) 09/12/23 01:03 RDW 17.2 % (12.1-15.1) H 09/12/23 01:03 Plt Count 288 10^3/cmm (157-399) 09/12/23 01:03 MPV 8.9 fL (7.4-10.4) 09/12/23 01:03 Neut % (Auto) 67.2 % 09/12/23 01:03 Lymph % (Auto) 21.8 % 09/12/23 01:03 [place] % (Auto) 7.0 % 09/12/23 01:03 Eos % (Auto) 2.9 % 09/12/23 01:03 Baso % (Auto) 0.8 % 09/12/23 01:03 Neut # (Auto) 4.00 10^3/uL (1.8-7.7) 09/12/23 01:03 Lymph # (Auto) 1.3 10^3/uL (0.8-4.8) 09/12/23 01:03 [place] # (Auto) 0.4 10^3/uL (0.2-0.9) 09/12/23 01:03 Eos # (Auto) 0.2 10^3/uL (0.0-0.8) 09/12/23 01:03 Baso # (Auto) 0.1 10^3/uL (0.0-0.1) 09/12/23 01:03 Nucleated RBC % (auto) 0.5 % 09/12/23 01:03 Nucleated RBCs # 0.0 /100WBC 09/12/23 01:03 Sodium 140 mmol/L (136-145) 09/12/23 01:03 Potassium 4.4 mmol/L (3.5-5.1) 09/12/23 01:03 Chloride 105 mmol/L (98-107) 09/12/23 01:03 Carbon Dioxide 22 mmol/L (22-29) 09/12/23 01:03 Anion Gap 17.4 (5-19) 09/12/23 01:03 BUN 23 mg/dL (8-23) 09/12/23 01:03 Creatinine 1.3 mg/dL (0.5-0.9) H 09/12/23 01:03 GFR Calculation 49.4 mL/min (90-130) L 09/12/23 01:03 Glucose 232 mg/dL (65-115) H 09/12/23 01:03 Calculated Osmolality 301 mOsm/kg (285-295) H 09/12/23 01:03 Calcium 8.8 mg/dL (8.5-10.5) 09/12/23 01:03 Total Bilirubin 0.3 mg/dL (0.15-1.2) 09/12/23 01:03 AST 32 U/L (0-32) 09/12/23 01:03 ALT 18 U/L (0-33) 09/12/23 01:03 Alkaline Phosphatase 108 U/L (35-105) H 09/12/23 01:03 NT-Pro-B Natriuret Pep 219 pg/mL (0-125) H 09/12/23 01:03 Total Protein 7.3 g/dL (6.6-8.7) 09/12/23 01:03 Albumin 4.0 g/dL (3.5-5.2) 09/12/23 01:03 Globulin 3.3 g/dL (1.3-4.6) 09/12/23 01:03 All radiology interpretation(s) finalized by discharge Discharge Plan Discharge Patient Disposition: Home Clinical Impression: Edema Qualifiers: Edema type: unspecified Qualified Code(s): R60.9 - Edema, unspecified Condition: Stable Prescriptions: New Lasix 20 mg tablet 20 mg PO DAILY Qty: 5 0RF No Action sertraline 100 mg tablet 100 mg PO Q24H hydroxyzine HCl 50 mg tablet 50 mg PO QID PRN (Reason: Itching) cilostazol 100 mg tablet 100 mg PO BID 30 Days Qty: 60 5RF fluticasone propionate [Allergy Relief (fluticasone)] 50 mcg/actuation spray,suspension 1 spray INTRANASAL ONCE PRN (Reason: allergy symptoms) simvastatin 80 mg tablet 50 mg PO ONCE nitroglycerin [Nitrostat] 0.4 mg tablet, sublingual 0.4 mg SUBLINGUAL ONCE PRN (Reason: chest pain) metoprolol tartrate 25 mg tablet 12.5 mg PO BID metformin 1,000 mg tablet extended release 24hr 1,000 mg PO BID aspirin [Adult Low Dose Aspirin] 81 mg tablet,delayed release (DR/EC) 81 mg PO ONCE multivitamin [Daily Multi-Vitamin] Tablet 1 tab PO QAM losartan 100 mg tablet 50 mg PO DAILY Qty: 90 3RF [place] 10 mcg/dose(250 mcg/mL) 2.4 mL pen injector 10 mcg SUBCUT BID Qty: 2.4 3RF tizanidine 4 mg tablet 4 mg PO BID PRN (Reason: muscle spasticity) Qty: 60 0RF bupivacaine (PF) 0.25 % (2.5 mg/mL) solution 2 ml Infiltration ONCE Qty: 1 0RF levocetirizine 5 mg tablet 5 mg PO DAILY Tyler FowleroStar U-300 Insulin 300 unit/mL (1.5 mL) insulin pen 30 unit SUBCUT DAILY dexamethasone sodium phos (PF) 10 mg/mL solution 8 mg Infiltration ONCE Qty: 0.8 0RF niacin 500 mg tablet 500 mg PO DAILY mecobalamin (vitamin B12) [B12 Active] 1,000 mcg tablet,chewable 1,000 mcg PO DAILY [place] 10 mcg/dose(250 mcg/mL) 2.4 mL pen injector See Rx Instructions .ROUTE .COMPLEX Qty: 2.4 3RF Dose Instruction: INJECT 10MCG SUBCUTANEOUSLY TWICE DAILY FOR 30 DAYS Rx Instructions: INJECT 10MCG SUBCUTANEOUSLY TWICE DAILY FOR 30 DAYS escitalopram oxalate 10 mg tablet 10 mg PO DAILY gabapentin 100 mg capsule 100 mg PO BID Qty: 60 4RF tramadol 50 mg tablet 50 mg PO Q6H PRN (Reason: pain) Qty: 30 0RF hydrocodone-acetaminophen 5-325 mg tablet 1 tab PO Q8H PRN (Reason: pain) Qty: 14 0RF Discharge Orders: Discharge ED (Routine); Ordered 09/12/23 Ordered By: Saul Acharya Referrals: Deja Hernadez DO [Primary Care Provider] - Patient Instructions: Edema (ED) Activity Restrictions/Additional Instructions: Your evaluation in the ER including lab work, imaging such as chest x-ray, ultrasound, CT did not show any blood clots, aneurysms tumors or masses. You are given Lasix to help diurese off the excess fluid. A prescription will be sent to your pharmacy. Please follow-up with your family doctor or advanced practice rn within the next week for further evaluation testing. 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
[2023-09-12 01:10] LABS: Basophils # 0.1 10^3/uL (0.0-0.1); Basophils % 0.8 %; Eosinophils # 0.2 10^3/uL (0.0-0.8); Eosinophils % 2.9 %; Hematocrit 27.2 % (36-47); Lymphocytes # 1.3 10^3/uL (0.8-4.8); Lymphocytes % 21.8 %; Mean Corpuscular HGB Conc 30.9 g/dL (30-55); Mean Corpuscular Hemoglobin 27.8 pg (27-33); Mean Corpuscular Volume 90.1 fl (85-98); Mean Platelet Volume 8.9 fL (7.4-10.4); Monocytes # 0.4 10^3/uL (0.2-0.9); Neutrophils % 67.2 %; Nucleated Red Blood Cells % 0.5 %; Platelet Count 288 10^3/cmm (157-399); Red Blood Count 3.02 10^6/uL (3.85-5.65); Red Cell Distribution Width 17.2 % (12.1-15.1); White Blood Count 5.96 10^3/uL (3.29-11.43)
[2023-09-12 01:40] LABS: Alanine Aminotransferase 18 U/L (0-33); Alkaline Phosphatase 108 U/L (35-105); Anion Gap 17.4 (5-19); Aspartate Amino Transferase 32 U/L (0-32); Blood Urea Nitrogen 23 mg/dL (8-23); Calcium 8.8 mg/dL (8.5-10.5); Carbon Dioxide 22 mmol/L (22-29); Chloride 105 mmol/L (98-107); Globulin 3.3 g/dL (1.3-4.6); Glomerular Filtration Rate 49.4 mL/min (90-130); Glucose 232 mg/dL (65-115); NT Pro B Type Natriuretic Pept 219 pg/mL (0-125); Osmolality Calculated 301 mOsm/kg (285-295); Potassium 4.4 mmol/L (3.5-5.1); Sodium 140 mmol/L (136-145); Total Bilirubin 0.3 mg/dL (0.15-1.2); Total Protein 7.3 g/dL (6.6-8.7)
[2023-09-12] MEDS: FUROsemide 20 mg Tablet PO (03:26)
[2023-09-12 03:32] VITALS: PULSE 89; RESP 16; O2SAT 97
== END 2023-09-12 03:34 | disposition home or self-care (01) ==
PROVIDERS: Emergency Provider Emergency Medicine; PCP Family Medicine
DX: R60.9 Edema, unspecified (principal); Z79.82 Long term (current) use of aspirin; Z79.84 Long term (current) use of oral hypoglycemic drugs; Z79.85 Long-term (current) use of injectable non-insulin antidiabetic drugs; Z87.891 Personal history of nicotine dependence; E11.9 Type 2 diabetes mellitus without complications; I25.10 Atherosclerotic heart disease of native coronary artery without angina pectoris; I10 Essential (primary) hypertension; E78.2 Mixed hyperlipidemia
CPT/HCPCS: 70450; 71045; 80053; 83880; 85025; 93971; 99284

== ENCOUNTER 2023-09-21 08:32 | Oncology outpatient (recurring) (ONCR) | payer BC, MEDICAID, SELFPAY ==
[2023-09-03] MEDS: acetaminophen 325 mg Tablet 650 MG PO (09:18)
[2023-09-03] MEDS: diphenhydrAMINE 25 mg Capsule PO (09:18)
[2023-09-03 09:21] VITALS: BP 123/65; PULSE 84; RESP 18; TEMP 36.6; O2SAT 92
[2023-09-03] MEDS: sodium chloride 0.9% (100 ml) 100 ML 35 ML (10:09)
[2023-09-03 10:10] VITALS: BP 150/79; PULSE 89; RESP 18; TEMP 36.2; O2SAT 93
[2023-09-03 12:00] VITALS: BP 153/76; PULSE 94; RESP 18; TEMP 36.1; O2SAT 97
[2023-09-03] MEDS: FUROsemide 10 mg/mL SDV 2mL 20 MG IVP (12:12)
[2023-09-09 14:08] VITALS: BP 139/81; PULSE 103; RESP 16; TEMP 36.6; O2SAT 99
[2023-09-09] MEDS: sodium chloride 0.9% 250 ML 75 ML IV (14:15)
[2023-09-09] MEDS: iron sucrose 200 MG in sodium chloride 0.9% (100 ml) 100 ML 220 MG IV (14:16)
[2023-09-09 14:52] VITALS: BP 132/76; PULSE 68; RESP 16; TEMP 36.1; O2SAT 98
[2023-09-11 10:14] VITALS: BMI 28.4
[2023-09-11 10:15] VITALS: BP 172/78; PULSE 85; RESP 18; TEMP 36.2
[2023-09-11] MEDS: iron sucrose 200 MG in sodium chloride 0.9% (100 ml) 100 ML 220 MG IV (10:43)
[2023-09-11 11:20] VITALS: BP 160/80; PULSE 79; RESP 16; O2SAT 94
[2023-09-16] MEDS: iron sucrose 200 MG in sodium chloride 0.9% (100 ml) 100 ML 220 MG IV (13:57)
[2023-09-16 14:05] VITALS: BP 104/67; PULSE 92; TEMP 36.1; O2SAT 95
[2023-09-16 14:42] VITALS: BP 112/71; PULSE 68; RESP 14; TEMP 36.7; O2SAT 98
[2023-09-18] MEDS: sodium chloride 0.9% 250 ML 75 ML IV (10:22)
[2023-09-18] MEDS: iron sucrose 200 MG in sodium chloride 0.9% (100 ml) 100 ML 220 MG IV (10:44)
[2023-09-18 11:15] VITALS: BP 170/84; PULSE 82; RESP 16; TEMP 36.1; O2SAT 100
[2023-09-21] MEDS: sodium chloride 0.9% 250 ML 50 ML IV (09:18)
[2023-09-21] MEDS: iron sucrose 200 MG in sodium chloride 0.9% (100 ml) 100 ML 220 MG IV (09:19)
[2023-09-21 10:12] VITALS: BP 126/78; PULSE 88; RESP 17; TEMP 35.8; O2SAT 100
== END 2023-10-01 23:59 | disposition home or self-care (01) ==
PROVIDERS: PCP Nurse Practitioner Family; Visit Provider Internal Medicine Medical Oncology
DX: Z53.9 Procedure and treatment not carried out, unspecified reason (principal); D50.9 Iron deficiency anemia, unspecified
CPT/HCPCS: 36430; 86850; 86900; 86920; 96365; J1756; J1940; J7050; P9016

== ENCOUNTER 2023-10-15 05:48 | Day surgery (SDC) | payer MEDICARE, SELFPAY ==
[2023-10-15 06:09] VITALS: BMI 27.4
[2023-10-15 06:17] LABS: Glucose Point of Care 163 mg/dL (70-110)
[2023-10-15] MEDS: sodium chloride 0.9% 1,000 ML 30 ML IV (06:38)
[2023-10-15 06:43] VITALS: BP 143/71; PULSE 81; RESP 18; TEMP 36.2; O2SAT 94
--- NOTE | 2023-10-15 06:48 | W.PM.OPSFHP ---
Same Day Surgery H&P Indication for Procedure/HPI DATE OF PROCEDURE: October 15, 2023 CHIEF COMPLAINT/INDICATIONFOR SURGICAL PROCEDURE: ferropenic anemia PREOP DIAGNOSIS: gi bleeding PLANNED PROCEDURE: Operation Date: 10/15/23 07:00 Proposed Procedures p 06398 colon 42161 egd D50.9(Not Applicable) - Colin Whitfield MD s EGD(Not Applicable) - Colin Whitfield MD Medications/Allergies* Home Medications Medication Instructions Recorded Confirmed Type metformin 1,000 mg tablet,extended 1,000 mg PO BID 08/10/19 10/13/23 History release 24hr (osmotic) metoprolol tartrate 25 mg tablet 12.5 mg PO BID 08/10/19 10/13/23 History multivitamin (Daily Multi-Vitamin 1 tab PO QAM 08/10/19 10/13/23 History tablet) nitroglycerin 0.4 mg sublingual 0.4 mg sublingual ONCE PRN chest 08/10/19 10/15/23 History tablet (Nitrostat) pain simvastatin 80 mg tablet 50 mg PO DAILY 08/10/19 10/13/23 History hydroxyzine HCl 50 mg tablet 50 mg PO QID Itching 08/11/19 10/13/23 History sertraline 100 mg tablet 100 mg PO Q24H 08/11/19 10/13/23 History fluticasone propionate 50 1 spray intranasal DAILY PRN 12/01/22 10/13/23 History mcg/actuation nasal allergy symptoms spray,suspension (Allergy Relief (fluticasone)) insulin glargine U-300 conc 300 30 unit SUBCUT DAILY 12/01/22 10/15/23 History unit/mL (1.5 mL) subcutaneous pen (Touzinao SoloStar U-300 Insulin) levocetirizine 5 mg tablet 5 mg PO DAILY 12/01/22 10/13/23 History mecobalamin (vitamin B12) 1,000 1,000 mcg PO DAILY 06/15/23 10/13/23 History mcg chewable tablet (B12 Active) escitalopram oxalate 10 mg tablet 10 mg PO DAILY 07/14/23 10/13/23 History Allergies/Adverse Reactions Allergy/AdvReac Type Severity Reaction Status Date / Time bupropion Allergy Unknown headache Verified 10/15/23 06:02 fluoxetine [From Prozac] Allergy Unknown anxiety Verified 10/15/23 06:02 lisinopril Allergy Unknown unknown Verified 10/15/23 06:02 pollen extracts Allergy Unknown unknown Verified 10/15/23 06:02 sitagliptin [Januvia] Allergy Unknown unknown Verified 10/15/23 06:02 Current Medications: Generic Name Dose Route Start Last Admin Trade Name Manuel PRN Reason Stop Dose Admin Sodium Chloride 1,000 mls @ 30 mls/hr 10/15/23 06:30 10/15/23 06:38 Sodium Chloride 0.9% IV 30 mls/hr .Q24H SHANE Administration Pertinent History/Comorbid Conditions* Medical History (Updated 09/20/23 @ 00:00 by DAVID Piper) Hypochromic microcytic anemia DJD (degenerative joint disease) Diabetes Atypical chest pain Atherosclerotic heart disease of [place] coronary artery without angina pectoris Asymptomatic bilateral carotid artery stenosis Varicose ulcer of right lower extremity Hypertension Hyperlipemia, mixed PCO Anemia Peripheral vascular disease of extremity with claudication Diabetes 1.5, managed as type 2 Surgical History (Updated 10/06/19 @ 10:46 by Galen Malave MD) H/O esophagogastroduodenoscopy 10/06/19: normal Status post colonoscopy 10/06/19: normal History of hysterectomy (~1982) History of coronary artery stent placement Family History (Updated 10/04/19 @ 15:03 by Vianey Kirkland RN) Diabetes Father CAD (coronary artery disease) Father myocardial infarction age 70 Hypertension Father Denies family history of Anesthesia complication Bleeding disorder Social History Smoking and tobacco/nicotine status: former use of tobacco/nicotine Quit status (tobacco/nicotine): has quit using Former quit date comment: Quit in the 1969's, smoked x 10 years Second hand smoke exposure: No Alcohol intake: never Substance/Drug Use: never Adopted: No Caregiver/support person: Yes Lives independently: Yes Household members: none Housing: House Marital status: Single service: No Current occupational status: disabled Current occupational exposures/hazards: No Pets and animals: No Sexually active: No Do you think of yourself as: Straight/Heterosexual Current gender identity: Female Bianka/Zoroastrianism: None Special bianka needs: No Agree to transfusion: No Pertinent Exam Findings alert, oriented x 3, clear to auscultation bilaterally and regular rate & rhythm Recommendations Surgery/Procedure today Coding Level of Care Code Acute Code for Chg Fwd
--- NOTE | 2023-10-15 06:53 | P.ANESASSM_ITS ---
Pre-Anesthetic Assessment Height/Weight: Height 1.68 m Weight 77.111 kg Temp Pulse Resp BP Pulse Ox 97.1 F L 81 18 143/71 94 10/15/23 06:43 10/15/23 06:43 10/15/23 06:43 10/15/23 06:43 10/15/23 06:43 Preop Diagnosis: gi bleeding Operation Date: 10/15/23 07:00 Proposed Procedures p 47768 colon 78231 egd D50.9(Not Applicable) - Colin Whitfield MD s EGD(Not Applicable) - Colin Whitfield MD Was Beta Ester taken within 24 hours: Yes Was Clonidine taken within 24 hours: N/A Last intake: Intake Last Liquid Date 10/14/23 Last Liquid Time 18:00 Last Solid Date 10/13/23 Last Solid Time 18:00 Social No alcohol and No tobacco Exam alert, oriented x 3, clear to auscultation bilaterally and regular rate & rhythm Airway Submandibular: within normal limits Cervical ROM: within normal limits Mallampati: Class II History/ROS No significant history except as noted Pulmonary None reported CV/HEM Hypertension and Peripheral Vascular Disease lower ext stents last dose plavix was 7 days ago None reported Hepatic None reported GI None reported Metabolic Diabetes [place] [facility] [place] [facility] [place] None reported Neuropsych None reported Anesthetic Plan ASA status: 3 Anesthesia: MAC Risk of > 500 ml blood loss (7ml/kg in children): Yes, adequate IV access and fluids planned Medications/Allergies Home Medications Medication Instructions Recorded Confirmed Last Taken Type metformin 1,000 mg tablet,extended 1,000 mg PO BID 08/10/19 10/13/23 10/14/23 History release 24hr (osmotic) metoprolol tartrate 25 mg tablet 12.5 mg PO BID 08/10/19 10/13/23 10/14/23 History multivitamin (Daily Multi-Vitamin 1 tab PO QAM 08/10/19 10/13/23 10/14/23 History tablet) nitroglycerin 0.4 mg sublingual 0.4 mg sublingual ONCE PRN chest 08/10/19 10/15/23 09/16/19 History tablet (Nitrostat) pain simvastatin 80 mg tablet 50 mg PO DAILY 08/10/19 10/13/23 10/14/23 History cilostazol 100 mg tablet 100 mg PO BID 30 days #60 tabs 08/11/19 10/13/23 10/14/23 Rx hydroxyzine HCl 50 mg tablet 50 mg PO QID Itching 08/11/19 10/13/23 10/14/23 History sertraline 100 mg tablet 100 mg PO Q24H 08/11/19 10/13/23 10/14/23 History losartan 100 mg tablet 50 mg (1/2 x 100 mg) PO DAILY #90 06/03/21 10/13/23 10/14/23 Rx tabs exenatide 10 mcg/dose(250 10 mcg (0.04 mL) SUBCUT BID #2.4 mL 04/29/22 10/13/23 10/14/23 Rx mcg/mL)2.4 mL subcutaneous pen injector (ByFiberLight) exenatide 10 mcg/dose(250 See Rx Instructions .Route 04/29/22 10/13/23 10/14/23 Rx mcg/mL)2.4 mL subcutaneous pen .COMPLEX #2.4 mL injector (Espressi) hydrocodone 5 mg-acetaminophen 325 1 tab PO Q8H PRN pain #14 tabs 06/03/22 10/13/23 10/12/23 Rx mg tablet tramadol 50 mg tablet 50 mg PO Q6H PRN pain #30 tabs 06/09/22 10/13/23 09/29/23 Rx tizanidine 4 mg tablet 4 mg PO BID PRN muscle spasticity 08/13/22 10/13/23 10/06/23 Rx #60 tabs fluticasone propionate 50 1 spray intranasal DAILY PRN 12/01/22 10/13/23 10/14/23 History mcg/actuation nasal allergy symptoms spray,suspension (Allergy Relief (fluticasone)) insulin glargine U-300 conc 300 30 unit SUBCUT DAILY 12/01/22 10/15/23 10/14/23 History unit/mL (1.5 mL) subcutaneous pen (Toujeo SoloStar U-300 Insulin) levocetirizine 5 mg tablet 5 mg PO DAILY 12/01/22 10/13/23 10/14/23 History mecobalamin (vitamin B12) 1,000 1,000 mcg PO DAILY 06/15/23 10/13/23 10/14/23 History mcg chewable tablet (B12 Active) escitalopram oxalate 10 mg tablet 10 mg PO DAILY 07/14/23 10/13/23 10/14/23 History gabapentin 100 mg capsule 100 mg PO BID pain #60 caps 08/31/23 10/13/23 10/09/23 Rx Allergies Allergy/AdvReac Type Severity Reaction Status Date / Time bupropion Allergy Unknown headache Verified 10/15/23 06:02 fluoxetine [From Prozac] Allergy Unknown anxiety Verified 10/15/23 06:02 lisinopril Allergy Unknown unknown Verified 10/15/23 06:02 pollen extracts Allergy Unknown unknown Verified 10/15/23 06:02 sitagliptin [Januvia] Allergy Unknown unknown Verified 10/15/23 06:02 Current Medications Generic Name Dose Route Start Last Admin Trade Name Freq PRN Reason Stop Dose Admin Sodium Chloride 1,000 mls @ 30 mls/hr 10/15/23 06:30 10/15/23 06:38 Sodium Chloride 0.9% IV 30 mls/hr .Q24H SHANE Administration PFSH Anesthesia Medical History Hypochromic microcytic anemia DJD (degenerative joint disease) Diabetes Atypical chest pain Atherosclerotic heart disease of [place] coronary artery without angina pectoris Asymptomatic bilateral carotid artery stenosis Varicose ulcer of right lower extremity Hypertension Hyperlipemia, mixed PCO Anemia Peripheral vascular disease of extremity with claudication Diabetes 1.5, managed as type 2 Surgical History H/O esophagogastroduodenoscopy 10/06/19: normal Status post colonoscopy 10/06/19: normal History of hysterectomy (~1982) History of coronary artery stent placement Family History Father Hypertension Diabetes CAD (coronary artery disease) myocardial infarction age 70 Denies family history of Anesthesia complication Bleeding disorder Social History Smoking and tobacco/nicotine status: former use of tobacco/nicotine Quit status (tobacco/nicotine): has quit using Former quit date comment: Quit in the 1969's, smoked x 10 years Second hand smoke exposure: No Alcohol intake: never Substance/Drug Use: never Adopted: No Caregiver/support person: Yes Lives independently: Yes Household members: none Housing: House Marital status: Single service: No Current occupational status: disabled Current occupational exposures/hazards: No Pets and animals: No Sexually active: No Do you think of yourself as: Straight/Heterosexual Current gender identity: Female Bianka/Episcopalian: None Special bianka needs: No Agree to transfusion: No Data Anesthesia Cardiac Studies: No Data to Display
[2023-10-15 07:27] VITALS: BP 121/67; PULSE 84; RESP 18; TEMP 36.2; O2SAT 96
[2023-10-15 07:37] VITALS: BP 126/74; PULSE 78; RESP 1; TEMP 36.3; O2SAT 97
--- NOTE | 2023-10-15 07:50 | ANE.PACU2 ---
Inpatient post-anesthesia follow up: Airway intact: Yes Vital signs: Temperature 97.3 F Pulse Rate 78 Respiratory Rate 1 Blood Pressure 126/74 Pulse Oximetry 97 Oxygen Delivery Me thod Room Air Oxygen Flow Rate Fraction of Inspir ed Oxygen Hydration adequate: Yes Nausea and vomiting: No Pain level: 1 Mental status: Baseline
== END 2023-10-15 07:54 | disposition home or self-care (01) ==
PROVIDERS: PCP Family Medicine; Visit Provider Surgery
PROC: 0DJD8ZZ Inspection of Lower Intestinal Tract, Via Natural or Artificial Opening Endoscopic (ICD-10-PCS; CPT 45378; principal; 2023-10-15 07:00)
PROC: 0DJ08ZZ Inspection of Upper Intestinal Tract, Via Natural or Artificial Opening Endoscopic (ICD-10-PCS; CPT 43235; 2023-10-15 07:00)
DX: D50.9 Iron deficiency anemia, unspecified (principal); K44.9 Diaphragmatic hernia without obstruction or gangrene; K29.50 Unspecified chronic gastritis without bleeding; I10 Essential (primary) hypertension; Z79.4 Long term (current) use of insulin; E78.2 Mixed hyperlipidemia; E13.9 Other specified diabetes mellitus without complications; Z87.891 Personal history of nicotine dependence
CPT/HCPCS: 36416; 43239; 45378; 82962; 88305; 88342; G0121; J2704; J7030

== ENCOUNTER 2023-10-21 10:49 | Oncology outpatient (recurring) (ONCR) | payer MEDICARE, MEDICAID, SELFPAY ==
[2023-10-21 11:29] LABS: Basophils % 1.1 %; Eosinophils # 0.1 10^3/uL (0.0-0.8); Hematocrit 32.8 % (36-47); Lymphocytes # 1.1 10^3/uL (0.8-4.8); Lymphocytes % 29.7 %; Mean Corpuscular HGB Conc 30.2 g/dL (30-55); Mean Corpuscular Volume 92.9 fl (85-98); Mean Platelet Volume 9.6 fL (7.4-10.4); Monocytes # 0.2 10^3/uL (0.2-0.9); Neutrophils # 2.18 10^3/uL (1.8-7.7); Neutrophils % 59.9 %; Nucleated Red Blood Cells % 0 %; Platelet Count 279 10^3/cmm (157-399); Red Blood Count 3.53 10^6/uL (3.85-5.65); Red Cell Distribution Width 16.1 % (12.1-15.1); White Blood Count 3.64 10^3/uL (3.29-11.43)
[2023-10-21 11:40] LABS: Alanine Aminotransferase 15 U/L (0-33); Albumin Level 4.1 g/dL (3.5-5.2); Alkaline Phosphatase 86 U/L (35-105); Anion Gap 13.1 (5-19); Aspartate Amino Transferase 23 U/L (0-32); Blood Urea Nitrogen 16 mg/dL (8-23); Calcium 9.1 mg/dL (8.5-10.5); Carbon Dioxide 25 mmol/L (22-29); Chloride 108 mmol/L (98-107); Ferritin 158 ng/mL (15-150); Globulin 2.8 g/dL (1.3-4.6); Glomerular Filtration Rate 66.9 mL/min (90-130); Glucose 144 mg/dL (65-115); Iron 53 ug/dL (37-145); Osmolality Calculated 298 mOsm/kg (285-295); Percent Saturation 18.4 % (20-50); Potassium 4.1 mmol/L (3.5-5.1); Sodium 142 mmol/L (136-145); Total Bilirubin 0.3 mg/dL (0.15-1.2); Total Iron Binding Capacity 288 mcg/dl; Total Protein 6.9 g/dL (6.6-8.7); Unsaturated Iron Binding 235 ug/dL (112-347)
== END 2023-11-01 23:59 | disposition home or self-care (01) ==
PROVIDERS: Nurse Practitioner Family; PCP Family Medicine; Visit Provider Internal Medicine Medical Oncology
DX: Z53.9 Procedure and treatment not carried out, unspecified reason (principal); D50.9 Iron deficiency anemia, unspecified; D64.9 Anemia, unspecified
CPT/HCPCS: 36415; 80053; 82728; 83540; 83550; 85025; 99214

== ENCOUNTER 2023-10-28 09:50 | Outpatient (CLI) | payer MEDICARE, MEDICAID, SELFPAY | END 2023-10-28 09:51 | disposition home or self-care (01) | LOC: LAB 09:51 | PROVIDERS: PCP Family Medicine; Visit Provider Nurse Practitioner Family | DX: D50.9 Iron deficiency anemia, unspecified (principal); Z09 Encounter for follow-up examination after completed treatment for conditions other than malignant neoplasm | CPT/HCPCS: 82274; 99213 ==

== ENCOUNTER 2023-11-23 08:47 | Oncology outpatient (recurring) (ONCR) | payer MEDICARE, MEDICAID, SELFPAY ==
[2023-11-23 09:15] VITALS: BP 117/69; PULSE 94; RESP 16; TEMP 36.2; O2SAT 96
[2023-11-23] MEDS: diphenhydrAMINE 50 mg/mL SDV 1mL 25 MG IVP (09:21)
[2023-11-23] MEDS: acetaminophen 325 mg Tablet 650 MG PO (09:21)
[2023-11-23] MEDS: iron dextran 25 MG in SYRINGE 1 EACH 30 MG IVP (09:40)
[2023-11-23] MEDS: sodium chloride 0.9% 500 ML 75 ML IV (09:40)
[2023-11-23] MEDS: iron dextran 1,000 MG in sodium chloride 0.9% 1,000 ML 250.75 MG IV (10:57)
[2023-11-23 15:05] VITALS: BP 148/76; PULSE 94; RESP 16; TEMP 36.7; O2SAT 94
== END 2023-12-01 23:59 | disposition home or self-care (01) ==
PROVIDERS: PCP Family Medicine; Visit Provider Internal Medicine Medical Oncology
DX: D50.9 Iron deficiency anemia, unspecified (principal)
CPT/HCPCS: 96365; 96366; 96375; J1200; J1750; J7030; J7040

== ENCOUNTER 2023-12-31 13:05 | Oncology outpatient (recurring) (ONCR) | payer MEDICARE, SELFPAY ==
[2023-12-31 13:41] LABS: Basophils # 0.1 10^3/uL (0.0-0.1); Basophils % 1.1 %; Eosinophils # 0.1 10^3/uL (0.0-0.8); Hematocrit 24.6 % (36-47); Lymphocytes # 1.3 10^3/uL (0.8-4.8); Lymphocytes % 30.1 %; Mean Corpuscular HGB Conc 28.9 g/dL (30-55); Mean Corpuscular Hemoglobin 28.6 pg (27-33); Mean Corpuscular Volume 99.2 fl (85-98); Mean Platelet Volume 8.9 fL (7.4-10.4); Monocytes # 0.3 10^3/uL (0.2-0.9); Monocytes % 6.7 %; Neutrophils # 2.56 10^3/uL (1.8-7.7); Neutrophils % 58.9 %; Nucleated Red Blood Cells % 0.5 %; Platelet Count 283 10^3/cmm (157-399); Red Blood Count 2.48 10^6/uL (3.85-5.65); Red Cell Distribution Width 18.8 % (12.1-15.1); White Blood Count 4.35 10^3/uL (3.29-11.43)
[2023-12-31 13:57] LABS: Alanine Aminotransferase 13 U/L (0-33); Albumin Level 4.2 g/dL (3.5-5.2); Alkaline Phosphatase 68 U/L (35-105); Anion Gap 14.9 (5-19); Aspartate Amino Transferase 28 U/L (0-32); Blood Urea Nitrogen 22 mg/dL (8-23); Carbon Dioxide 22 mmol/L (22-29); Chloride 108 mmol/L (98-107); Ferritin 79 ng/mL (15-150); Globulin 3.1 g/dL (1.3-4.6); Glomerular Filtration Rate 54.2 mL/min (90-130); Glucose 105 mg/dL (65-115); Iron 37 ug/dL (37-145); Osmolality Calculated 294 mOsm/kg (285-295); Percent Saturation 11.6 % (20-50); Potassium 4.9 mmol/L (3.5-5.1); Sodium 140 mmol/L (136-145); Total Bilirubin 0.2 mg/dL (0.15-1.2); Total Iron Binding Capacity 317 mcg/dl; Total Protein 7.3 g/dL (6.6-8.7); Unsaturated Iron Binding 280 ug/dL (112-347)
[2023-12-31 16:14] LABS: Albumin Level 4.2 g/dL (3.5-5.2); Anion Gap 15.6 (5-19); Blood Urea Nitrogen 22 mg/dL (8-23); Calcium 9.5 mg/dL (8.5-10.5); Carbon Dioxide 22 mmol/L (22-29); Chloride 106 mmol/L (98-107); Creatinine Clr Calc Pharmacy 45.9825; Glomerular Filtration Rate 54.2 mL/min (90-130); Glucose 87 mg/dL (65-115); Phosphorus 3.4 mg/dL (2.5-4.5); Potassium 4.6 mmol/L (3.5-5.1); Sodium 139 mmol/L (136-145)
[2023-12-31 16:31] LABS: Creatinine Urine, Random 112 mg/dL (28-217); Microalbum Creatinine Ratio Ur 9 mg/dL (0-20); Microalbumin Random Urine 1 ug/dL (0-20)
[2023-12-31 17:02] LABS: Calcium 9.4 mg/dL (8.5-10.5)
[2023-12-31 17:49] LABS: Parathyroid Hormone 44.4 pg/mL (15-65)
== END 2024-01-01 23:59 | disposition home or self-care (01) ==
LOC: ONCMED 13:06
PROVIDERS: Internal Medicine Nephrology; Nurse Practitioner Family; PCP Family Medicine; Visit Provider Internal Medicine Medical Oncology
DX: D50.9 Iron deficiency anemia, unspecified (principal); N18.2 Chronic kidney disease, stage 2 (mild); E13.9 Other specified diabetes mellitus without complications; Z79.899 Other long term (current) drug therapy; I12.9 Hypertensive chronic kidney disease with stage 1 through stage 4 chronic kidney disease, or unspecified chronic kidney disease; Z79.84 Long term (current) use of oral hypoglycemic drugs; Z87.891 Personal history of nicotine dependence
CPT/HCPCS: 36415; 80053; 80069; 82044; 82310; 82728; 83540; 83550; 83970; 85025; 99214

== ENCOUNTER 2024-01-13 07:27 | Outpatient (CLI) | payer MEDICARE, MEDICAID, SELFPAY | END 2024-01-13 07:28 | disposition home or self-care (01) | LOC: RAD 07:29 → LAB 07:31 | PROVIDERS: PCP Family Medicine; Visit Provider Internal Medicine Medical Oncology | DX: D50.9 Iron deficiency anemia, unspecified (principal) | CPT/HCPCS: 82274 ==

== ENCOUNTER 2024-01-20 09:00 | Oncology outpatient (recurring) (ONCR) | payer MEDICARE, MEDICAID, SELFPAY ==
[2024-01-06 13:02] LABS: Basophils % 0.9 %; Eosinophils # 0.1 10^3/uL (0.0-0.8); Eosinophils % 1.8 %; Hematocrit 22.4 % (36-47); Lymphocytes # 1.1 10^3/uL (0.8-4.8); Lymphocytes % 23.9 %; Mean Corpuscular Hemoglobin 28.1 pg (27-33); Mean Platelet Volume 9.2 fL (7.4-10.4); Monocytes # 0.3 10^3/uL (0.2-0.9); Monocytes % 6.4 %; Neutrophils # 2.94 10^3/uL (1.8-7.7); Neutrophils % 66.8 %; Nucleated Red Blood Cells % 0 %; Platelet Count 294 10^3/cmm (157-399); Red Blood Count 2.31 10^6/uL (3.85-5.65); Red Cell Distribution Width 18.8 % (12.1-15.1)
[2024-01-06] MEDS: ferric carboxy (IVPB) 750 MG in sodium chloride 0.9% (100 ml) 100 ML 345 MG IV (13:02)
[2024-01-06 13:30] VITALS: BP 124/78; PULSE 78; RESP 18; TEMP 36.6; O2SAT 98
[2024-01-08] VITALS (10 sets, daily range): BP systolic 124–153; BP diastolic 68–79; PULSE 79–96; RESP 16; TEMP 35.7–36.4; O2SAT 93–99
[2024-01-08] MEDS: sodium chloride 0.9% 250 ML IV (08:00)
[2024-01-08] MEDS: acetaminophen 325 mg Tablet 650 MG PO (08:01)
[2024-01-08] MEDS: diphenhydrAMINE 25 mg Capsule PO (08:02)
[2024-01-20 09:30] LABS: Basophils % 0.7 %; Eosinophils # 0.1 10^3/uL (0.0-0.8); Eosinophils % 1.5 %; Hematocrit 28.9 % (36-47); Lymphocytes % 23.1 %; Mean Corpuscular HGB Conc 30.4 g/dL (30-55); Mean Corpuscular Hemoglobin 30.3 pg (27-33); Mean Corpuscular Volume 99.7 fl (85-98); Mean Platelet Volume 9.4 fL (7.4-10.4); Monocytes # 0.2 10^3/uL (0.2-0.9); Monocytes % 4.6 %; Neutrophils # 2.89 10^3/uL (1.8-7.7); Neutrophils % 70.1 %; Nucleated Red Blood Cells % 0 %; Platelet Count 283 10^3/cmm (157-399); Red Cell Distribution Width 18.1 % (12.1-15.1); White Blood Count 4.12 10^3/uL (3.29-11.43)
[2024-01-20 09:51] LABS: Alanine Aminotransferase 15 U/L (0-33); Albumin Level 4.2 g/dL (3.5-5.2); Alkaline Phosphatase 68 U/L (35-105); Anion Gap 14.8 (5-19); Aspartate Amino Transferase 30 U/L (0-32); Blood Urea Nitrogen 44 mg/dL (8-23); Carbon Dioxide 24 mmol/L (22-29); Chloride 106 mmol/L (98-107); Glomerular Filtration Rate 41.9 mL/min (90-130); Glucose 154 mg/dL (65-115); Osmolality Calculated 304 mOsm/kg (285-295); Potassium 4.8 mmol/L (3.5-5.1); Sodium 140 mmol/L (136-145); Total Bilirubin 0.2 mg/dL (0.15-1.2); Total Protein 7.2 g/dL (6.6-8.7)
[2024-01-20 10:19] LABS: Basophils % 0.9 %; Eosinophils # 0.1 10^3/uL (0.0-0.8); Eosinophils % 1.3 %; Hematocrit 28.7 % (36-47); Lymphocytes # 1.1 10^3/uL (0.8-4.8); Lymphocytes % 24.2 %; Mean Corpuscular Hemoglobin 29.3 pg (27-33); Mean Corpuscular Volume 97.6 fl (85-98); Mean Platelet Volume 9.2 fL (7.4-10.4); Monocytes # 0.2 10^3/uL (0.2-0.9); Monocytes % 5.4 %; Neutrophils # 3.04 10^3/uL (1.8-7.7); Nucleated Red Blood Cells % 0 %; Platelet Count 277 10^3/cmm (157-399); Red Blood Count 2.94 10^6/uL (3.85-5.65); Red Cell Distribution Width 18.1 % (12.1-15.1); Reticulocyte % 3.8 % (0.5-2.0); White Blood Count 4.47 10^3/uL (3.29-11.43)
[2024-01-20 10:45] LABS: Ferritin 332 ng/mL (15-150); Iron 59 ug/dL (37-145); Percent Saturation 21.6 % (20-50); Total Iron Binding Capacity 272 mcg/dl; Unsaturated Iron Binding 213 ug/dL (112-347)
[2024-01-20 15:24] LABS: Folate Level 12.3 ng/mL (4.8-37.3)
[2024-01-20 15:29] LABS: Vitamin B12 603 pg/mL (232-1245)
[2024-01-23 12:10] LABS: Methylmalonic Acid 201 nmol/L (69-390)
[2024-01-26 14:55] LABS: Soluble Transferrin Receptor 2.99 mg/L (0.76-1.76)
== END 2024-01-31 23:59 | disposition home or self-care (01) ==
PROVIDERS: Nurse Practitioner Family; PCP Family Medicine; Visit Provider Internal Medicine Medical Oncology
DX: Z53.9 Procedure and treatment not carried out, unspecified reason (principal); D50.0 Iron deficiency anemia secondary to blood loss (chronic); I10 Essential (primary) hypertension
CPT/HCPCS: 36430; 80053; 82607; 82728; 82746; 83540; 83550; 83921; 84238; 85025; 85045; 86850; 86900; 86920; 96365; 99213; J1439; J7050; P9016

== ENCOUNTER 2024-03-01 09:24 | Oncology outpatient (recurring) (ONCR) | payer MEDICARE, MEDICAID, SELFPAY ==
[2024-02-11] MEDS: diphenhydrAMINE 25 mg Capsule PO (13:59)
[2024-02-11] MEDS: sodium chloride 0.9% 250 mL Bag IV (13:59)
[2024-02-11] MEDS: acetaminophen 325 mg Tablet 650 MG PO (13:59)
[2024-02-11 15:03] VITALS: BP 119/54; PULSE 98; O2SAT 95
[2024-02-11 15:20] VITALS: BP 119/47; PULSE 99; TEMP 36.6; O2SAT 92
[2024-02-11 15:35] VITALS: BP 133/67; PULSE 96; O2SAT 98
[2024-02-11 15:53] VITALS: BP 131/65; PULSE 94; TEMP 36.7; O2SAT 98
[2024-02-11 15:55] VITALS: BP 131/65; PULSE 94; RESP 16; TEMP 36.7; O2SAT 98
[2024-02-11 16:59] VITALS: BP 144/68; PULSE 94; TEMP 35.9; O2SAT 96
[2024-02-15] VITALS (9 sets, daily range): BP systolic 145–167; BP diastolic 70–83; PULSE 75–98; RESP 16; TEMP 35.8–36.4; O2SAT 94–99
[2024-02-15 10:52] LABS: Basophils % 0.8 %; Eosinophils # 0.1 10^3/uL (0.0-0.8); Eosinophils % 1.9 %; Hematocrit 22.6 % (36-47); Lymphocytes # 0.7 10^3/uL (0.8-4.8); Lymphocytes % 20.1 %; Mean Corpuscular HGB Conc 29.2 g/dL (30-55); Mean Corpuscular Hemoglobin 28.9 pg (27-33); Mean Corpuscular Volume 99.1 fl (85-98); Mean Platelet Volume 9.6 fL (7.4-10.4); Monocytes # 0.2 10^3/uL (0.2-0.9); Monocytes % 5.8 %; Neutrophils # 2.54 10^3/uL (1.8-7.7); Neutrophils % 70.8 %; Nucleated Red Blood Cells % 0 %; Platelet Count 286 10^3/cmm (157-399); Red Blood Count 2.28 10^6/uL (3.85-5.65); White Blood Count 3.59 10^3/uL (3.29-11.43)
[2024-02-15 11:17] LABS: Alanine Aminotransferase 11 U/L (0-33); Alkaline Phosphatase 71 U/L (35-105); Anion Gap 14.4 (5-19); Aspartate Amino Transferase 25 U/L (0-32); Blood Urea Nitrogen 17 mg/dL (8-23); Calcium 8.8 mg/dL (8.5-10.5); Carbon Dioxide 23 mmol/L (22-29); Chloride 107 mmol/L (98-107); Globulin 2.7 g/dL (1.3-4.6); Glomerular Filtration Rate 54.2 mL/min (90-130); Glucose 182 mg/dL (65-115); Osmolality Calculated 296 mOsm/kg (285-295); Potassium 4.4 mmol/L (3.5-5.1); Sodium 140 mmol/L (136-145); Total Bilirubin 0.2 mg/dL (0.15-1.2); Total Protein 6.7 g/dL (6.6-8.7)
[2024-02-15] MEDS: diphenhydrAMINE 25 mg Capsule PO (11:47)
[2024-02-15] MEDS: acetaminophen 325 mg Tablet 650 MG PO (11:47)
[2024-02-15] MEDS: sodium chloride 0.9% 250 mL Bag IV (11:47)
[2024-02-15 16:24] LABS: Iron 36 ug/dL (37-145); Percent Saturation 12.5 % (20-50); Total Iron Binding Capacity 287 mcg/dl; Unsaturated Iron Binding 251 ug/dL (112-347)
[2024-02-15 19:29] LABS: Lactate Dehydrogenase 156 U/L (135-214)
[2024-02-23 10:15] LABS: Basophils # 0.1 10^3/uL (0.0-0.1); Basophils % 1.1 %; Eosinophils # 0.1 10^3/uL (0.0-0.8); Eosinophils % 1.9 %; Hematocrit 31.8 % (36-47); Lymphocytes # 0.9 10^3/uL (0.8-4.8); Lymphocytes % 18.6 %; Mean Corpuscular HGB Conc 29.9 g/dL (30-55); Mean Corpuscular Hemoglobin 28.1 pg (27-33); Mean Corpuscular Volume 94.1 fl (85-98); Mean Platelet Volume 9.1 fL (7.4-10.4); Monocytes # 0.3 10^3/uL (0.2-0.9); Monocytes % 5.6 %; Neutrophils # 3.35 10^3/uL (1.8-7.7); Neutrophils % 72.6 %; Nucleated Red Blood Cells % 0 %; Platelet Count 273 10^3/cmm (157-399); Red Blood Count 3.38 10^6/uL (3.85-5.65); Red Cell Distribution Width 17.2 % (12.1-15.1); White Blood Count 4.62 10^3/uL (3.29-11.43)
[2024-02-23] MEDS: epoetin alfa-epbx 40,000 Unit/mL SDV (non-esrd, ONC only) 40000 UNIT SUBCUT (14:35)
[2024-02-26 07:53] VITALS: BP 118/68; PULSE 105; RESP 16; TEMP 36.3; O2SAT 94
[2024-02-26] MEDS: ferric carboxy (PYXIS) 750 MG in sodium chloride 0.9% (100 ml) 100 ML 345 MG IV (08:16)
[2024-02-26] MEDS: sodium chloride 0.9% 250 ML 75 ML IV (08:16)
[2024-02-26 08:45] VITALS: BP 120/71; PULSE 96; RESP 16; TEMP 35.9; O2SAT 94
== END 2024-03-02 23:59 | disposition home or self-care (01) ==
PROVIDERS: Nurse Practitioner Family; PCP Family Medicine; Visit Provider Internal Medicine Medical Oncology
DX: D50.9 Iron deficiency anemia, unspecified (principal); Z79.899 Other long term (current) drug therapy
CPT/HCPCS: 36415; 36430; 80053; 83010; 83540; 83550; 83615; 85025; 86850; 86900; 86920; 96365; 96372; 99214; J1439; J7050; P9016; P9040; Q5106

== ENCOUNTER 2024-03-04 07:50 | Oncology outpatient (recurring) (ONCR) | payer MEDICARE, MEDICAID, SELFPAY ==
[2024-03-04 08:00] VITALS: BP 134/72; PULSE 80; RESP 16; TEMP 35.8; O2SAT 98
[2024-03-04] MEDS: ferric carboxy (PYXIS) 750 MG in sodium chloride 0.9% (100 ml) 100 ML 345 MG IV (08:16)
[2024-03-04] MEDS: sodium chloride 0.9% 250 ML 75 ML IV (08:16)
[2024-03-04 08:21] LABS: Basophils % 0.8 %; Eosinophils # 0.1 10^3/uL (0.0-0.8); Eosinophils % 2.6 %; Hematocrit 27.6 % (36-47); Lymphocytes # 0.9 10^3/uL (0.8-4.8); Lymphocytes % 17.4 %; Mean Corpuscular HGB Conc 30.4 g/dL (30-55); Mean Corpuscular Hemoglobin 29.8 pg (27-33); Mean Corpuscular Volume 97.9 fl (85-98); Mean Platelet Volume 8.9 fL (7.4-10.4); Monocytes # 0.3 10^3/uL (0.2-0.9); Monocytes % 6.1 %; Neutrophils # 3.59 10^3/uL (1.8-7.7); Neutrophils % 72.9 %; Nucleated Red Blood Cells % 0 %; Platelet Count 313 10^3/cmm (157-399); Red Blood Count 2.82 10^6/uL (3.85-5.65); Red Cell Distribution Width 20.5 % (12.1-15.1); White Blood Count 4.93 10^3/uL (3.29-11.43)
[2024-03-04 08:37] LABS: Alanine Aminotransferase 17 U/L (0-33); Albumin Level 4.2 g/dL (3.5-5.2); Alkaline Phosphatase 67 U/L (35-105); Anion Gap 17.3 (5-19); Aspartate Amino Transferase 29 U/L (0-32); Blood Urea Nitrogen 27 mg/dL (8-23); Calcium 9.5 mg/dL (8.5-10.5); Carbon Dioxide 23 mmol/L (22-29); Chloride 105 mmol/L (98-107); Globulin 2.9 g/dL (1.3-4.6); Glomerular Filtration Rate 45.4 mL/min (90-130); Glucose 118 mg/dL (65-115); Osmolality Calculated 298 mOsm/kg (285-295); Potassium 4.3 mmol/L (3.5-5.1); Sodium 141 mmol/L (136-145); Total Bilirubin 0.2 mg/dL (0.15-1.2); Total Protein 7.1 g/dL (6.6-8.7)
[2024-03-04] MEDS: epoetin alfa-epbx 40,000 Unit/mL SDV (non-esrd, ONC only) 40000 UNIT SUBCUT (09:01)
[2024-03-04 09:05] VITALS: BP 134/65; PULSE 82; RESP 16; TEMP 35.8; O2SAT 97
== END 2024-04-02 23:59 | disposition home or self-care (01) ==
LOC: ONCMED 07:51
PROVIDERS: Nurse Practitioner Family; PCP Family Medicine; Visit Provider Internal Medicine Medical Oncology
DX: Z79.899 Other long term (current) drug therapy; D50.0 Iron deficiency anemia secondary to blood loss (chronic); N18.9 Chronic kidney disease, unspecified
CPT/HCPCS: 80053; 85025; 96365; 96372; J1439; J7050; Q5106

== ENCOUNTER → 2024-03-24 14:01 | Outpatient (BNVA) | payer MEDICARE, MEDICAID, SELFPAY | PROVIDERS: PCP Family Medicine; Visit Provider Internal Medicine Cardiovascular Disease | DX: I25.10 Atherosclerotic heart disease of native coronary artery without angina pectoris (principal); I65.23 Occlusion and stenosis of bilateral carotid arteries; I10 Essential (primary) hypertension; I73.9 Peripheral vascular disease, unspecified; E78.2 Mixed hyperlipidemia; N18.32 Chronic kidney disease, stage 3b; I12.9 Hypertensive chronic kidney disease with stage 1 through stage 4 chronic kidney disease, or unspecified chronic kidney disease; N18.2 Chronic kidney disease, stage 2 (mild) | CPT/HCPCS: 99214 ==

== ENCOUNTER 2024-04-27 10:00 | Oncology outpatient (recurring) (ONCR) | payer MEDICARE, MEDICAID, SELFPAY ==
[2024-04-06 14:30] LABS: Eosinophils # 0.1 10^3/uL (0.0-0.8); Eosinophils % 2.4 %; Lymphocytes # 0.9 10^3/uL (0.8-4.8); Lymphocytes % 22.2 %; Mean Corpuscular HGB Conc 30.3 g/dL (30-55); Mean Corpuscular Hemoglobin 30.2 pg (27-33); Mean Corpuscular Volume 99.7 fl (85-98); Mean Platelet Volume 9.5 fL (7.4-10.4); Monocytes # 0.3 10^3/uL (0.2-0.9); Monocytes % 6.1 %; Neutrophils # 2.79 10^3/uL (1.8-7.7); Neutrophils % 68.1 %; Nucleated Red Blood Cells % 0 %; Platelet Count 255 10^3/cmm (157-399); Red Blood Count 2.91 10^6/uL (3.85-5.65); Red Cell Distribution Width 17.5 % (12.1-15.1)
[2024-04-06 14:44] LABS: Alanine Aminotransferase 16 U/L (0-33); Albumin Level 4.4 g/dL (3.5-5.2); Alkaline Phosphatase 81 U/L (35-105); Anion Gap 14.5 (5-19); Aspartate Amino Transferase 30 U/L (0-32); Blood Urea Nitrogen 30 mg/dL (8-23); Calcium 9.6 mg/dL (8.5-10.5); Carbon Dioxide 25 mmol/L (22-29); Chloride 104 mmol/L (98-107); Ferritin 225 ng/mL (15-150); Globulin 2.8 g/dL (1.3-4.6); Glomerular Filtration Rate 54.2 mL/min (90-130); Glucose 92 mg/dL (65-115); Iron 43 ug/dL (37-145); Osmolality Calculated 294 mOsm/kg (285-295); Percent Saturation 17.3 % (20-50); Potassium 4.5 mmol/L (3.5-5.1); Sodium 139 mmol/L (136-145); Total Bilirubin 0.2 mg/dL (0.15-1.2); Total Iron Binding Capacity 248 mcg/dl; Total Protein 7.2 g/dL (6.6-8.7); Unsaturated Iron Binding 205 ug/dL (112-347)
[2024-04-06] MEDS: epoetin alfa-epbx 40,000 Unit/mL SDV (non-esrd, ONC only) 40000 UNIT SUBCUT (16:30)
== END 2024-05-02 23:59 | disposition home or self-care (01) ==
PROVIDERS: Nurse Practitioner Family; PCP Family Medicine; Visit Provider Internal Medicine Medical Oncology
DX: Z53.9 Procedure and treatment not carried out, unspecified reason (principal)
CPT/HCPCS: 36415; 80053; 82728; 83540; 83550; 85025; 96372; 99214; Q5106

== ENCOUNTER 2024-05-25 14:18 | Oncology outpatient (recurring) (ONCR) | payer MEDICARE, MEDICAID, SELFPAY ==
[2024-05-11 13:42] LABS: Basophils % 0.9 %; Eosinophils # 0.1 10^3/uL (0.0-0.8); Eosinophils % 2.8 %; Hematocrit 28.8 % (36-47); Lymphocytes # 0.7 10^3/uL (0.8-4.8); Lymphocytes % 17.2 %; Mean Corpuscular HGB Conc 29.5 g/dL (30-55); Mean Corpuscular Hemoglobin 27.3 pg (27-33); Mean Corpuscular Volume 92.6 fl (85-98); Mean Platelet Volume 8.6 fL (7.4-10.4); Monocytes # 0.2 10^3/uL (0.2-0.9); Monocytes % 5.1 %; Neutrophils # 3.16 10^3/uL (1.8-7.7); Neutrophils % 73.8 %; Nucleated Red Blood Cells % 0 %; Platelet Count 325 10^3/cmm (157-399); Red Blood Count 3.11 10^6/uL (3.85-5.65); Red Cell Distribution Width 17.8 % (12.1-15.1); White Blood Count 4.29 10^3/uL (3.29-11.43)
[2024-05-11 13:57] LABS: Alanine Aminotransferase 14 U/L (0-33); Albumin Level 4.3 g/dL (3.5-5.2); Alkaline Phosphatase 92 U/L (35-105); Anion Gap 10.8 (5-19); Aspartate Amino Transferase 39 U/L (0-32); Blood Urea Nitrogen 14 mg/dL (8-23); Calcium 9.1 mg/dL (8.5-10.5); Carbon Dioxide 26 mmol/L (22-29); Chloride 104 mmol/L (98-107); Ferritin 43 ng/mL (15-150); Globulin 3.4 g/dL (1.3-4.6); Glomerular Filtration Rate 54.2 mL/min (90-130); Glucose 146 mg/dL (65-115); Iron 29 ug/dL (37-145); Osmolality Calculated 287 mOsm/kg (285-295); Percent Saturation 8.3 % (20-50); Potassium 3.8 mmol/L (3.5-5.1); Sodium 137 mmol/L (136-145); Total Bilirubin 0.2 mg/dL (0.15-1.2); Total Iron Binding Capacity 346 mcg/dl; Total Protein 7.7 g/dL (6.6-8.7); Unsaturated Iron Binding 317 ug/dL (112-347)
[2024-05-11] MEDS: ferric carboxy (PYXIS) 750 MG in sodium chloride 0.9% (100 ml) 100 ML 345 MG IV (16:07)
[2024-05-11] MEDS: sodium chloride 0.9% 250 ML 50 ML IV (16:08)
[2024-05-11] MEDS: epoetin alfa-epbx 40,000 Unit/mL SDV (non-esrd, ONC only) 40000 UNIT SUBCUT (16:45)
[2024-05-11 16:50] VITALS: BP 169/75; PULSE 96; RESP 16; TEMP 36.1; O2SAT 97
[2024-05-18 10:30] LABS: Basophils # 0.1 10^3/uL (0.0-0.1); Eosinophils # 0.2 10^3/uL (0.0-0.8); Eosinophils % 3.4 %; Hematocrit 29.5 % (36-47); Lymphocytes # 0.9 10^3/uL (0.8-4.8); Lymphocytes % 18.5 %; Mean Corpuscular HGB Conc 29.2 g/dL (30-55); Mean Corpuscular Hemoglobin 28.1 pg (27-33); Mean Corpuscular Volume 96.4 fl (85-98); Mean Platelet Volume 9.2 fL (7.4-10.4); Monocytes # 0.3 10^3/uL (0.2-0.9); Monocytes % 6.3 %; Neutrophils # 3.55 10^3/uL (1.8-7.7); Nucleated Red Blood Cells % 0.6 %; Platelet Count 258 10^3/cmm (157-399); Red Blood Count 3.06 10^6/uL (3.85-5.65); Red Cell Distribution Width 20.8 % (12.1-15.1); White Blood Count 5.07 10^3/uL (3.29-11.43)
[2024-05-18 11:08] LABS: Alanine Aminotransferase 12 U/L (0-33); Albumin Level 4.3 g/dL (3.5-5.2); Alkaline Phosphatase 92 U/L (35-105); Anion Gap 13.5 (5-19); Aspartate Amino Transferase 25 U/L (0-32); Blood Urea Nitrogen 20 mg/dL (8-23); Calcium 8.9 mg/dL (8.5-10.5); Carbon Dioxide 23 mmol/L (22-29); Chloride 108 mmol/L (98-107); Creatinine Clr Calc Pharmacy 44.3952; Glomerular Filtration Rate 49.4 mL/min (90-130); Glucose 206 mg/dL (65-115); Osmolality Calculated 299 mOsm/kg (285-295); Potassium 4.5 mmol/L (3.5-5.1); Sodium 140 mmol/L (136-145); Total Bilirubin 0.2 mg/dL (0.15-1.2); Total Protein 7.3 g/dL (6.6-8.7)
[2024-05-18] MEDS: ferric carboxy (PYXIS) 750 MG in sodium chloride 0.9% (100 ml) 100 ML 345 MG IV (13:53)
[2024-05-18] MEDS: EPOETIN ALFA EPBX 40000 UNIT/ML SUBCUT (13:54)
[2024-05-18 14:40] VITALS: BP 178/84; PULSE 72; RESP 18; TEMP 36.4; O2SAT 96
[2024-05-25 15:01] LABS: Basophils % 0.8 %; Eosinophils # 0.1 10^3/uL (0.0-0.8); Eosinophils % 2.6 %; Hematocrit 33.6 % (36-47); Lymphocytes # 0.7 10^3/uL (0.8-4.8); Lymphocytes % 17.2 %; Mean Corpuscular HGB Conc 29.5 g/dL (30-55); Mean Corpuscular Hemoglobin 28.1 pg (27-33); Mean Corpuscular Volume 95.5 fl (85-98); Mean Platelet Volume 8.5 fL (7.4-10.4); Monocytes # 0.3 10^3/uL (0.2-0.9); Monocytes % 7.4 %; Neutrophils % 71.7 %; Nucleated Red Blood Cells % 0 %; Platelet Count 280 10^3/cmm (157-399); Red Blood Count 3.52 10^6/uL (3.85-5.65)
[2024-05-25] MEDS: EPOETIN ALFA EPBX 40000 UNIT/ML SUBCUT (15:28)
== END 2024-06-02 23:59 | disposition home or self-care (01) ==
PROVIDERS: Nurse Practitioner Family; PCP Family Medicine; Visit Provider Internal Medicine Hematology & Oncology
DX: Z79.899 Other long term (current) drug therapy (principal); N18.9 Chronic kidney disease, unspecified; D50.0 Iron deficiency anemia secondary to blood loss (chronic); Z53.9 Procedure and treatment not carried out, unspecified reason
CPT/HCPCS: 36415; 80053; 82728; 83540; 83550; 85025; 96365; 96372; 99214; J1439; J7050; Q5106

== ENCOUNTER 2024-06-15 08:30 | Outpatient (CLI) | payer MEDICARE, MEDICAID, SELFPAY ==
--- NOTE | 2024-06-15 08:44 | MM_ITS ---
WS: [id number] Bilateral screening 3D tomosynthesis digital mammogram, 06/15/2024 8:48 AM Clinical Data: SCREENING Comparison: 04/21/2023, 04/17/2022, 04/12/2021, 03/29/2010, 12/21/2018, 11/26/2017, 11/13/2016, 11/12/2015, , 11/03/2013, 10/06/2012, 10/24/2009, 10/25/2008, 09/17/2007. Findings: No spiculated masses or clustered calcifications are seen. There are no secondary signs of carcinoma . MM/MM scr BI tomosynthesis [id number] Impression: Negative bilateral mammogram unchanged. Recommend annual screening mammograms. BIRADS: 1 - Negative. FOLLOW UP: 1 Year Follow-up DENSITY: There are scattered areas of fibroglandular density. 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
[2024-06-15 09:18] LABS: Basophils # 0.1 10^3/uL (0.0-0.1); Basophils % 1.5 %; Eosinophils # 0.2 10^3/uL (0.0-0.8); Hematocrit 38.6 % (36-47); Lymphocytes # 1.2 10^3/uL (0.8-4.8); Lymphocytes % 21.4 %; Mean Corpuscular HGB Conc 29.5 g/dL (30-55); Mean Corpuscular Hemoglobin 27.9 pg (27-33); Mean Corpuscular Volume 94.4 fl (85-98); Mean Platelet Volume 8.7 fL (7.4-10.4); Monocytes # 0.3 10^3/uL (0.2-0.9); Neutrophils # 3.71 10^3/uL (1.8-7.7); Neutrophils % 68.9 %; Nucleated Red Blood Cells % 0 %; Platelet Count 292 10^3/cmm (157-399); Red Blood Count 4.09 10^6/uL (3.85-5.65); Red Cell Distribution Width 17.8 % (12.1-15.1); White Blood Count 5.38 10^3/uL (3.29-11.43)
== END 2024-06-15 08:38 | disposition home or self-care (01) ==
PROVIDERS: Nurse Practitioner Family; PCP Family Medicine; Visit Provider Family Medicine
DX: Z12.31 Encounter for screening mammogram for malignant neoplasm of breast (principal); D50.0 Iron deficiency anemia secondary to blood loss (chronic)
CPT/HCPCS: 77063; 77067; 85025

== ENCOUNTER 2024-06-28 09:00 | Oncology outpatient (recurring) (ONCR) | payer MEDICARE, MEDICAID, SELFPAY ==
[2024-06-08 14:44] LABS: Basophils # 0.1 10^3/uL (0.0-0.1); Basophils % 1.2 %; Eosinophils # 0.2 10^3/uL (0.0-0.8); Eosinophils % 2.5 %; Hematocrit 38.8 % (36-47); Lymphocytes # 1.5 10^3/uL (0.8-4.8); Lymphocytes % 25.4 %; Mean Corpuscular HGB Conc 29.9 g/dL (30-55); Mean Corpuscular Hemoglobin 28.2 pg (27-33); Mean Corpuscular Volume 94.4 fl (85-98); Mean Platelet Volume 9.3 fL (7.4-10.4); Monocytes # 0.4 10^3/uL (0.2-0.9); Monocytes % 5.9 %; Neutrophils # 3.84 10^3/uL (1.8-7.7); Neutrophils % 64.7 %; Nucleated Red Blood Cells % 0 %; Platelet Count 303 10^3/cmm (157-399); Red Blood Count 4.11 10^6/uL (3.85-5.65); Red Cell Distribution Width 18.3 % (12.1-15.1); White Blood Count 5.94 10^3/uL (3.29-11.43)
--- NOTE | 2024-06-15 09:29 | PC.NURSE ---
HBG 11.6-per parameters, pt does not need Procrit injection today. Copy of lab results given to pt. Pt voiced understanding and had no questions at this time/lc
[2024-06-21 15:08] LABS: Basophils # 0.1 10^3/uL (0.0-0.1); Basophils % 1.1 %; Eosinophils # 0.1 10^3/uL (0.0-0.8); Eosinophils % 2.3 %; Hematocrit 35.1 % (36-47); Lymphocytes # 1.4 10^3/uL (0.8-4.8); Lymphocytes % 30.9 %; Mean Corpuscular HGB Conc 29.6 g/dL (30-55); Mean Corpuscular Hemoglobin 27.4 pg (27-33); Mean Corpuscular Volume 92.6 fl (85-98); Mean Platelet Volume 8.7 fL (7.4-10.4); Monocytes # 0.3 10^3/uL (0.2-0.9); Monocytes % 6.4 %; Neutrophils # 2.58 10^3/uL (1.8-7.7); Neutrophils % 59.1 %; Nucleated Red Blood Cells % 0 %; Platelet Count 276 10^3/cmm (157-399); Red Blood Count 3.79 10^6/uL (3.85-5.65); Red Cell Distribution Width 17.2 % (12.1-15.1); White Blood Count 4.37 10^3/uL (3.29-11.43)
[2024-06-21 15:25] LABS: Alanine Aminotransferase 15 U/L (0-33); Albumin Level 4.2 g/dL (3.5-5.2); Alkaline Phosphatase 101 U/L (35-105); Anion Gap 14.2 (5-19); Aspartate Amino Transferase 25 U/L (0-32); Blood Urea Nitrogen 26 mg/dL (8-23); Calcium 9.4 mg/dL (8.5-10.5); Carbon Dioxide 26 mmol/L (22-29); Chloride 103 mmol/L (98-107); Ferritin 337 ng/mL (15-150); Globulin 3.2 g/dL (1.3-4.6); Glomerular Filtration Rate 45.4 mL/min (90-130); Glucose 171 mg/dL (65-115); Iron 41 ug/dL (37-145); Osmolality Calculated 295 mOsm/kg (285-295); Percent Saturation 17.7 % (20-50); Potassium 5.2 mmol/L (3.5-5.1); Sodium 138 mmol/L (136-145); Total Bilirubin 0.2 mg/dL (0.15-1.2); Total Iron Binding Capacity 231 mcg/dl; Total Protein 7.4 g/dL (6.6-8.7); Unsaturated Iron Binding 190 ug/dL (112-347)
[2024-06-28 08:25] VITALS: BP 151/77; PULSE 79; RESP 16; O2SAT 99
[2024-06-28] MEDS: ferric carboxy (PYXIS) 750 MG in sodium chloride 0.9% (100 ml) 100 ML 345 MG IV (08:41)
[2024-06-28 09:14] LABS: Basophils # 0.1 10^3/uL (0.0-0.1); Basophils % 1.7 %; Eosinophils # 0.1 10^3/uL (0.0-0.8); Eosinophils % 2.8 %; Hematocrit 31.6 % (36-47); Lymphocytes # 0.9 10^3/uL (0.8-4.8); Lymphocytes % 25.8 %; Mean Corpuscular Hemoglobin 27.7 pg (27-33); Mean Corpuscular Volume 89.3 fl (85-98); Mean Platelet Volume 9.3 fL (7.4-10.4); Monocytes # 0.2 10^3/uL (0.2-0.9); Monocytes % 6.1 %; Neutrophils # 2.28 10^3/uL (1.8-7.7); Neutrophils % 63.3 %; Nucleated Red Blood Cells % 0 %; Platelet Count 236 10^3/cmm (157-399); Red Blood Count 3.54 10^6/uL (3.85-5.65)
[2024-06-28 09:20] VITALS: BP 146/80; PULSE 81; RESP 16; O2SAT 95
[2024-06-28 09:31] LABS: Alanine Aminotransferase 13 U/L (0-33); Albumin Level 4.1 g/dL (3.5-5.2); Alkaline Phosphatase 92 U/L (35-105); Anion Gap 13.6 (5-19); Aspartate Amino Transferase 23 U/L (0-32); Blood Urea Nitrogen 24 mg/dL (8-23); Calcium 9.2 mg/dL (8.5-10.5); Carbon Dioxide 24 mmol/L (22-29); Chloride 105 mmol/L (98-107); Globulin 2.9 g/dL (1.3-4.6); Glomerular Filtration Rate 49.4 mL/min (90-130); Glucose 112 mg/dL (65-115); Osmolality Calculated 291 mOsm/kg (285-295); Potassium 4.6 mmol/L (3.5-5.1); Sodium 138 mmol/L (136-145); Total Bilirubin 0.2 mg/dL (0.15-1.2)
== END 2024-07-02 23:59 | disposition home or self-care (01) ==
PROVIDERS: Internal Medicine Medical Oncology; Nurse Practitioner Family; PCP Family Medicine; Visit Provider Internal Medicine Hematology & Oncology
DX: Z53.9 Procedure and treatment not carried out, unspecified reason (principal); Z79.899 Other long term (current) drug therapy; N18.9 Chronic kidney disease, unspecified; D50.8 Other iron deficiency anemias
CPT/HCPCS: 36415; 80053; 82728; 83540; 83550; 85025; 96365; J1439

== ENCOUNTER 2024-07-13 09:24 | Oncology outpatient (recurring) (ONCR) | payer MEDICARE, SELFPAY ==
[2024-07-05 09:58] LABS: Basophils % 1.1 %; Eosinophils # 0.2 10^3/uL (0.0-0.8); Eosinophils % 4.8 %; Hematocrit 35.7 % (36-47); Lymphocytes # 0.8 10^3/uL (0.8-4.8); Lymphocytes % 20.7 %; Mean Corpuscular HGB Conc 30.5 g/dL (30-55); Mean Corpuscular Hemoglobin 28.2 pg (27-33); Mean Corpuscular Volume 92.5 fl (85-98); Monocytes # 0.1 10^3/uL (0.2-0.9); Monocytes % 3.8 %; Neutrophils # 2.58 10^3/uL (1.8-7.7); Neutrophils % 69.3 %; Nucleated Red Blood Cells % 0 %; Platelet Count 235 10^3/cmm (157-399); Red Blood Count 3.86 10^6/uL (3.85-5.65); Red Cell Distribution Width 17.2 % (12.1-15.1); White Blood Count 3.72 10^3/uL (3.29-11.43)
[2024-07-05 10:00] LABS: Alanine Aminotransferase 14 U/L (0-33); Albumin Level 4.1 g/dL (3.5-5.2); Alkaline Phosphatase 119 U/L (35-105); Anion Gap 14.2 (5-19); Aspartate Amino Transferase 24 U/L (0-32); Blood Urea Nitrogen 16 mg/dL (8-23); Calcium 8.9 mg/dL (8.5-10.5); Carbon Dioxide 24 mmol/L (22-29); Chloride 108 mmol/L (98-107); Globulin 3.1 g/dL (1.3-4.6); Glomerular Filtration Rate 66.7 mL/min (90-130); Glucose 142 mg/dL (65-115); Osmolality Calculated 298 mOsm/kg (285-295); Potassium 4.2 mmol/L (3.5-5.1); Sodium 142 mmol/L (136-145); Total Bilirubin 0.2 mg/dL (0.15-1.2); Total Protein 7.2 g/dL (6.6-8.7)
[2024-07-13 09:57] LABS: Basophils % 1.3 %; Eosinophils # 0.2 10^3/uL (0.0-0.8); Eosinophils % 4.7 %; Hematocrit 35.7 % (36-47); Lymphocytes # 0.9 10^3/uL (0.8-4.8); Lymphocytes % 28.1 %; Mean Corpuscular HGB Conc 30.8 g/dL (30-55); Mean Corpuscular Hemoglobin 28.3 pg (27-33); Mean Corpuscular Volume 91.8 fl (85-98); Mean Platelet Volume 8.7 fL (7.4-10.4); Monocytes # 0.2 10^3/uL (0.2-0.9); Neutrophils % 59.9 %; Nucleated Red Blood Cells % 0 %; Platelet Count 216 10^3/cmm (157-399); Red Blood Count 3.89 10^6/uL (3.85-5.65); Red Cell Distribution Width 17.4 % (12.1-15.1); White Blood Count 3.17 10^3/uL (3.29-11.43)
[2024-07-13 10:16] LABS: Alanine Aminotransferase 15 U/L (0-33); Albumin Level 4.2 g/dL (3.5-5.2); Alkaline Phosphatase 116 U/L (35-105); Anion Gap 12.2 (5-19); Aspartate Amino Transferase 29 U/L (0-32); Blood Urea Nitrogen 26 mg/dL (8-23); Calcium 9.2 mg/dL (8.5-10.5); Carbon Dioxide 26 mmol/L (22-29); Chloride 106 mmol/L (98-107); Ferritin 819 ng/mL (15-150); Globulin 3.2 g/dL (1.3-4.6); Glomerular Filtration Rate 66.7 mL/min (90-130); Glucose 121 mg/dL (65-115); Iron 67 ug/dL (37-145); Osmolality Calculated 296 mOsm/kg (285-295); Percent Saturation 31.1 % (20-50); Potassium 4.2 mmol/L (3.5-5.1); Sodium 140 mmol/L (136-145); Total Bilirubin 0.2 mg/dL (0.15-1.2); Total Iron Binding Capacity 215 mcg/dl; Total Protein 7.4 g/dL (6.6-8.7); Unsaturated Iron Binding 148 ug/dL (112-347)
== END 2024-08-02 23:59 | disposition home or self-care (01) ==
PROVIDERS: Nurse Practitioner Family; PCP Family Medicine; Visit Provider Internal Medicine Medical Oncology
DX: Z53.9 Procedure and treatment not carried out, unspecified reason (principal); D50.0 Iron deficiency anemia secondary to blood loss (chronic); Z79.899 Other long term (current) drug therapy; E13.22 Other specified diabetes mellitus with diabetic chronic kidney disease; I12.9 Hypertensive chronic kidney disease with stage 1 through stage 4 chronic kidney disease, or unspecified chronic kidney disease; N18.4 Chronic kidney disease, stage 4 (severe); Z87.891 Personal history of nicotine dependence; Z79.4 Long term (current) use of insulin; Z79.84 Long term (current) use of oral hypoglycemic drugs; D63.1 Anemia in chronic kidney disease; D50.9 Iron deficiency anemia, unspecified
CPT/HCPCS: 36415; 80053; 82728; 83540; 83550; 85025; 99214

== ENCOUNTER 2024-08-11 08:33 | Oncology outpatient (recurring) (ONCR) | payer MEDICARE, SELFPAY ==
[2024-08-11 09:00] LABS: Basophils # 0.1 10^3/uL (0.0-0.1); Basophils % 1.2 %; Eosinophils # 0.1 10^3/uL (0.0-0.8); Eosinophils % 2.5 %; Hematocrit 33.6 % (36-47); Lymphocytes # 0.9 10^3/uL (0.8-4.8); Lymphocytes % 20.9 %; Mean Corpuscular Hemoglobin 28.6 pg (27-33); Mean Corpuscular Volume 92.3 fl (85-98); Mean Platelet Volume 8.6 fL (7.4-10.4); Monocytes # 0.2 10^3/uL (0.2-0.9); Monocytes % 4.4 %; Neutrophils # 2.89 10^3/uL (1.8-7.7); Nucleated Red Blood Cells % 0 %; Platelet Count 270 10^3/cmm (157-399); Red Blood Count 3.64 10^6/uL (3.85-5.65); Red Cell Distribution Width 17.1 % (12.1-15.1); White Blood Count 4.07 10^3/uL (3.29-11.43)
[2024-08-11 09:19] LABS: Alanine Aminotransferase 14 U/L (0-33); Albumin Level 4.3 g/dL (3.5-5.2); Alkaline Phosphatase 133 U/L (35-105); Anion Gap 14.2 (5-19); Aspartate Amino Transferase 27 U/L (0-32); Blood Urea Nitrogen 22 mg/dL (8-23); Calcium 9.8 mg/dL (8.5-10.5); Carbon Dioxide 25 mmol/L (22-29); Chloride 103 mmol/L (98-107); Creatinine Clr Calc Pharmacy 47.3719; Ferritin 401 ng/mL (15-150); Globulin 3.3 g/dL (1.3-4.6); Glomerular Filtration Rate 54.1 mL/min (90-130); Glucose 167 mg/dL (65-115); Iron 54 ug/dL (37-145); Osmolality Calculated 293 mOsm/kg (285-295); Potassium 4.2 mmol/L (3.5-5.1); Sodium 138 mmol/L (136-145); Total Bilirubin 0.2 mg/dL (0.15-1.2); Total Iron Binding Capacity 245 mcg/dl; Total Protein 7.6 g/dL (6.6-8.7); Unsaturated Iron Binding 191 ug/dL (112-347)
== END 2024-09-02 23:59 | disposition home or self-care (01) ==
PROVIDERS: Internal Medicine Medical Oncology; PCP Family Medicine; Visit Provider Internal Medicine
DX: D50.0 Iron deficiency anemia secondary to blood loss (chronic) (principal); D50.9 Iron deficiency anemia, unspecified; Z79.899 Other long term (current) drug therapy; E13.22 Other specified diabetes mellitus with diabetic chronic kidney disease; Z87.891 Personal history of nicotine dependence; Z79.84 Long term (current) use of oral hypoglycemic drugs; Z79.4 Long term (current) use of insulin
CPT/HCPCS: 36415; 80053; 82728; 83540; 83550; 85025; 99214

== ENCOUNTER 2024-10-26 09:51 | Oncology outpatient (recurring) (ONCR) | payer MEDICARE, SELFPAY ==
[2024-10-26 10:10] LABS: Basophils # 0.1 10^3/uL (0.0-0.1); Basophils % 1.2 %; Eosinophils # 0.1 10^3/uL (0.0-0.8); Eosinophils % 2.1 %; Hematocrit 21.8 % (36-47); Lymphocytes % 23.6 %; Mean Corpuscular HGB Conc 28.9 g/dL (30-55); Mean Corpuscular Hemoglobin 25.7 pg (27-33); Mean Platelet Volume 9.2 fL (7.4-10.4); Monocytes # 0.2 10^3/uL (0.2-0.9); Monocytes % 5.1 %; Neutrophils % 67.8 %; Nucleated Red Blood Cells % 0.7 %; Platelet Count 350 10^3/cmm (157-399); Red Blood Count 2.45 10^6/uL (3.85-5.65); Red Cell Distribution Width 17.6 % (12.1-15.1); White Blood Count 4.28 10^3/uL (3.29-11.43)
[2024-10-26 10:30] LABS: Alanine Aminotransferase 7 U/L (0-33); Albumin Level 4.3 g/dL (3.5-5.2); Alkaline Phosphatase 76 U/L (35-105); Anion Gap 15.3 (5-19); Aspartate Amino Transferase 14 U/L (0-32); Blood Urea Nitrogen 24 mg/dL (8-23); Calcium 9.2 mg/dL (8.5-10.5); Carbon Dioxide 24 mmol/L (22-29); Chloride 106 mmol/L (98-107); Ferritin 17 ng/mL (15-150); Globulin 2.7 g/dL (1.3-4.6); Glomerular Filtration Rate 54.1 mL/min (90-130); Glucose 173 mg/dL (65-115); Iron 27 ug/dL (37-145); Osmolality Calculated 300 mOsm/kg (285-295); Percent Saturation 7.8 % (20-50); Potassium 4.3 mmol/L (3.5-5.1); Sodium 141 mmol/L (136-145); Total Bilirubin 0.2 mg/dL (0.15-1.2); Total Iron Binding Capacity 345 mcg/dl; Unsaturated Iron Binding 318 ug/dL (112-347)
== END 2024-10-31 23:59 | disposition home or self-care (01) ==
LOC: ONCMED 09:53
PROVIDERS: Nurse Practitioner; PCP Family Medicine; Visit Provider Internal Medicine
DX: D50.0 Iron deficiency anemia secondary to blood loss (chronic) (principal); N18.9 Chronic kidney disease, unspecified; Z79.899 Other long term (current) drug therapy; Z87.891 Personal history of nicotine dependence
CPT/HCPCS: 36415; 80053; 82728; 83540; 83550; 85025; 99213

== ENCOUNTER 2024-11-23 14:07 | Oncology outpatient (recurring) (ONCR) | payer MEDICARE, SELFPAY ==
[2024-11-09] MEDS: ferric carboxy (PYXIS) 750 MG in sodium chloride 0.9% (100 ml) 100 ML 345 MG IV (14:57)
[2024-11-09 15:30] VITALS: BP 98/59; PULSE 83; RESP 16; TEMP 36.2; O2SAT 97
[2024-11-16] MEDS: ferric carboxy (PYXIS) 750 MG in sodium chloride 0.9% (100 ml) 100 ML 345 MG IV (14:09)
== END 2024-11-30 23:59 | disposition home or self-care (01) ==
PROVIDERS: PCP Family Medicine; Visit Provider Internal Medicine Medical Oncology
DX: Z53.9 Procedure and treatment not carried out, unspecified reason (principal)
CPT/HCPCS: 96365; J1439

== ENCOUNTER 2024-12-29 12:15 | Oncology outpatient (recurring) (ONCR) | payer MEDICARE, SELFPAY ==
[2024-12-20] MEDS: FERRIC CARBOXY IV (13:12)
[2024-12-20] MEDS: SODIUM CHLORIDE 0.9% IV (13:12)
[2024-12-20 15:50] VITALS: BP 124/78; PULSE 74; RESP 17; TEMP 36.6; O2SAT 98
[2024-12-28 12:57] LABS: Basophils # 0.1 10^3/uL (0.0-0.1); Basophils % 1.5 %; Eosinophils # 0.1 10^3/uL (0.0-0.8); Eosinophils % 1.8 %; Hematocrit 32.2 % (36-47); Lymphocytes # 0.9 10^3/uL (0.8-4.8); Lymphocytes % 27.4 %; Mean Corpuscular HGB Conc 29.8 g/dL (30-55); Mean Corpuscular Volume 97.3 fl (85-98); Mean Platelet Volume 9.1 fL (7.4-10.4); Monocytes # 0.2 10^3/uL (0.2-0.9); Monocytes % 6.6 %; Neutrophils # 2.07 10^3/uL (1.8-7.7); Neutrophils % 62.4 %; Nucleated Red Blood Cells % 0 %; Platelet Count 286 10^3/cmm (157-399); Red Blood Count 3.31 10^6/uL (3.85-5.65); Red Cell Distribution Width 17.4 % (12.1-15.1); White Blood Count 3.32 10^3/uL (3.29-11.43)
[2024-12-28 13:13] LABS: Alanine Aminotransferase 31 U/L (0-33); Alkaline Phosphatase 105 U/L (35-105); Anion Gap 14.3 (5-19); Aspartate Amino Transferase 61 U/L (0-32); Blood Urea Nitrogen 23 mg/dL (8-23); Calcium 9.2 mg/dL (8.5-10.5); Carbon Dioxide 23 mmol/L (22-29); Chloride 106 mmol/L (98-107); Creatinine Clr Calc Pharmacy 42.8382; Ferritin 605 ng/mL (15-150); Globulin 3.2 g/dL (1.3-4.6); Glomerular Filtration Rate 49.3 mL/min (90-130); Glucose 95 mg/dL (65-115); Iron 52 ug/dL (37-145); Osmolality Calculated 291 mOsm/kg (285-295); Percent Saturation 17.6 % (20-50); Potassium 4.3 mmol/L (3.5-5.1); Sodium 139 mmol/L (136-145); Total Bilirubin 0.2 mg/dL (0.15-1.2); Total Iron Binding Capacity 295 mcg/dl; Total Protein 7.2 g/dL (6.6-8.7); Unsaturated Iron Binding 243 ug/dL (112-347)
== END 2024-12-31 23:59 | disposition home or self-care (01) ==
PROVIDERS: Nurse Practitioner; PCP Family Medicine; Visit Provider Internal Medicine
DX: D50.0 Iron deficiency anemia secondary to blood loss (chronic) (principal)
CPT/HCPCS: 36415; 80053; 82274; 82728; 83540; 83550; 85025; 96365; 99203; 99214; J1439

== ENCOUNTER 2025-01-19 09:51 | Oncology outpatient (recurring) (ONCR) | payer MEDICARE, SELFPAY ==
[2025-01-19 10:36] LABS: Basophils % 0.9 %; Eosinophils # 0.1 10^3/uL (0.0-0.8); Eosinophils % 1.7 %; Hematocrit 27.3 % (36-47); Lymphocytes # 0.7 10^3/uL (0.8-4.8); Lymphocytes % 20.4 %; Mean Corpuscular HGB Conc 31.1 g/dL (30-55); Mean Corpuscular Hemoglobin 28.8 pg (27-33); Mean Corpuscular Volume 92.5 fl (85-98); Mean Platelet Volume 8.6 fL (7.4-10.4); Monocytes # 0.1 10^3/uL (0.2-0.9); Neutrophils # 2.53 10^3/uL (1.8-7.7); Neutrophils % 72.7 %; Nucleated Red Blood Cells % 0 %; Platelet Count 227 10^3/cmm (157-399); Red Blood Count 2.95 10^6/uL (3.85-5.65); Red Cell Distribution Width 15.9 % (12.1-15.1); Reticulocyte % 2.3 % (0.5-2.0); White Blood Count 3.48 10^3/uL (3.29-11.43)
[2025-01-19 10:53] LABS: Alanine Aminotransferase 8 U/L (0-33); Albumin Level 4.1 g/dL (3.5-5.2); Alkaline Phosphatase 95 U/L (35-105); Anion Gap 14.9 (5-19); Aspartate Amino Transferase 14 U/L (0-32); Blood Urea Nitrogen 32 mg/dL (8-23); Calcium 8.8 mg/dL (8.5-10.5); Carbon Dioxide 21 mmol/L (22-29); Chloride 108 mmol/L (98-107); Creatinine Clr Calc Pharmacy 36.9208; Globulin 2.9 g/dL (1.3-4.6); Glomerular Filtration Rate 41.8 mL/min (90-130); Glucose 186 mg/dL (65-115); Lactate Dehydrogenase 94 U/L (135-214); Osmolality Calculated 300 mOsm/kg (285-295); Potassium 4.9 mmol/L (3.5-5.1); Sodium 139 mmol/L (136-145); Total Bilirubin 0.2 mg/dL (0.15-1.2)
== END 2025-01-30 23:59 | disposition home or self-care (01) ==
PROVIDERS: Nurse Practitioner Family; PCP Family Medicine; Visit Provider Internal Medicine
DX: D50.0 Iron deficiency anemia secondary to blood loss (chronic) (principal); N18.9 Chronic kidney disease, unspecified
CPT/HCPCS: 80053; 83010; 83615; 85025; 85045; 99213

== ENCOUNTER 2025-02-23 08:30 | Oncology outpatient (recurring) (ONCR) | payer MEDICARE, SELFPAY ==
--- NOTE | 2025-02-16 08:10 | USCV_ITS ---
Nikhil Ivone Age: 69 Gender: F : 1955 Exam Date: 02/16/2025 08:21 Ordering Phys: Deja Hernadez DO Technologist: R Exam Location: [facility] – [place] Indication: dizziness, pain Risk Factors: Previous Vascular Surgery: Right Brachial BP: / Left Brachial BP: / Right Left Velocity (cm/s) Spectral Plaque Velocity (cm/s) Spectral Plaque Syst/Diast Broadening Syst/Diast Broadening 111.20/12.60 Prox CCA 50.10 / 9.70 69.70/ 17.00 Mid CCA 57.90 / 17.50 59.40/ 15.10 Distal CCA 48.50 / 17.70 94.60/ 25.00 Prox ICA 104.50/ 26.00 51.10/ 18.90 Mid ICA 99.90 / 32.50 77.10/ 27.30 Distal ICA 52.00 / 18.80 90.70 ECA 76.70 1.60 ICA/CCA 2.20 Antegrade Vertebral Antegrade 67.90/ 23.40 cm/s 49.40/ 14.50 cm/s Tri Subclavian Tri 188.2 165.3 0 0 CONCLUSIONS Right ICA stenosis <50%. Moderate atheromatous plaque right carotid bulb/ICA. Left ICA stenosis <50%. Moderate atheromatous plaque left carotid bulb/ICA. Intimal thickening in the common carotid arteries and internal carotid arteries bilaterally. Normal antegrade Doppler flow noted in the right vertebral artery. Normal antegrade Doppler flow noted in the left vertebral artery. Doug Cosme MD (Electronically Signed) Final Date: 16 February 2025 09:55 S
[2025-02-16 11:13] LABS: Hematocrit 25.3 % (36-47); Hemoglobin 7.50 g/dL (11.27-16.99); Mean Corpuscular HGB Conc 29.6 g/dL (30-55); Mean Corpuscular Hemoglobin 27.4 pg (27-33); Mean Corpuscular Volume 92.3 fl (85-98); Nucleated Red Blood Cells % 0 %; Platelet Count 298 10^3/cmm (157-399); Red Blood Count 2.74 10^6/uL (3.85-5.65); White Blood Count 5.27 10^3/uL (3.29-11.43)
[2025-02-16 11:38] LABS: Alanine Aminotransferase 8 U/L (0-33); Albumin Level 4.2 g/dL (3.5-5.2); Alkaline Phosphatase 84 U/L (35-105); Anion Gap 17.6 (5-19); Aspartate Amino Transferase 15 U/L (0-32); Blood Urea Nitrogen 28 mg/dL (8-23); Calcium 9.4 mg/dL (8.5-10.5); Carbon Dioxide 21 mmol/L (22-29); Chloride 107 mmol/L (98-107); Creatinine Clr Calc Pharmacy 42.7194; Ferritin 27 ng/mL (15-150); Globulin 2.9 g/dL (1.3-4.6); Glucose 138 mg/dL (65-115); Iron 19 ug/dL (37-145); Osmolality Calculated 300 mOsm/kg (285-295); Potassium 4.6 mmol/L (3.5-5.1); Sodium 141 mmol/L (136-145); Total Iron Binding Capacity 330 mcg/dl; Total Protein 7.1 g/dL (6.6-8.7); Unsaturated Iron Binding 311 ug/dL (112-347)
[2025-02-16 11:50] LABS: Vitamin B12 1127 pg/mL (232-1245)
[2025-02-16] MEDS: ferric carboxy (PYXIS) 750 MG in sodium chloride 0.9% (100 ml) 100 ML 345 MG IV (13:14)
[2025-02-23 08:19] LABS: Hematocrit 25.8 % (36-47); Hemoglobin 7.50 g/dL (11.27-16.99); Mean Corpuscular HGB Conc 29.1 g/dL (30-55); Mean Corpuscular Hemoglobin 27.9 pg (27-33); Mean Corpuscular Volume 95.9 fl (85-98); Nucleated Red Blood Cells % 0 %; Platelet Count 271 10^3/cmm (157-399); Red Blood Count 2.69 10^6/uL (3.85-5.65); White Blood Count 4.12 10^3/uL (3.29-11.43)
[2025-02-23 08:37] LABS: Alanine Aminotransferase 8 U/L (0-33); Albumin Level 3.8 g/dL (3.5-5.2); Alkaline Phosphatase 81 U/L (35-105); Anion Gap 14.0 (5-19); Aspartate Amino Transferase 17 U/L (0-32); Blood Urea Nitrogen 15 mg/dL (8-23); Calcium 8.3 mg/dL (8.5-10.5); Carbon Dioxide 21 mmol/L (22-29); Chloride 111 mmol/L (98-107); Creatinine Clr Calc Pharmacy 50.4866; Globulin 2.7 g/dL (1.3-4.6); Glucose 103 mg/dL (65-115); Osmolality Calculated 295 mOsm/kg (285-295); Potassium 4.0 mmol/L (3.5-5.1); Sodium 142 mmol/L (136-145); Total Protein 6.5 g/dL (6.6-8.7)
[2025-02-23] MEDS: ferric carboxy (PYXIS) 750 MG in sodium chloride 0.9% (100 ml) 100 ML 345 MG IV (11:10)
[2025-02-23 11:50] VITALS: BP 178/81; PULSE 81; RESP 17; TEMP 36.2; O2SAT 99
== END 2025-03-02 23:59 | disposition home or self-care (01) ==
PROVIDERS: PCP Family Medicine; Visit Provider Internal Medicine
DX: D50.9 Iron deficiency anemia, unspecified; Z79.899 Other long term (current) drug therapy; Z53.9 Procedure and treatment not carried out, unspecified reason
CPT/HCPCS: 36415; 80053; 82607; 82668; 82728; 82746; 83010; 83540; 83550; 83615; 85025; 85045; 93880; 96365; 99213; J1439

== ENCOUNTER 2025-03-23 08:01 | Oncology outpatient (recurring) (ONCR) | payer MEDICARE, SELFPAY ==
[2025-03-23 08:39] LABS: Hematocrit 29.9 % (36-47); Hemoglobin 9.10 g/dL (11.27-16.99); Mean Corpuscular HGB Conc 30.4 g/dL (30-55); Mean Corpuscular Hemoglobin 29.4 pg (27-33); Mean Corpuscular Volume 96.8 fl (85-98); Nucleated Red Blood Cells % 0 %; Platelet Count 233 10^3/cmm (157-399); Red Blood Count 3.09 10^6/uL (3.85-5.65); White Blood Count 3.40 10^3/uL (3.29-11.43)
[2025-03-23 09:06] LABS: Alanine Aminotransferase 10 U/L (0-33); Albumin Level 4.5 g/dL (3.5-5.2); Alkaline Phosphatase 110 U/L (35-105); Anion Gap 13.4 (5-19); Aspartate Amino Transferase 18 U/L (0-32); Blood Urea Nitrogen 27 mg/dL (8-23); Calcium 9.2 mg/dL (8.5-10.5); Carbon Dioxide 24 mmol/L (22-29); Chloride 108 mmol/L (98-107); Creatinine Clr Calc Pharmacy 36.4067; Globulin 2.8 g/dL (1.3-4.6); Glucose 108 mg/dL (65-115); Osmolality Calculated 298 mOsm/kg (285-295); Potassium 4.4 mmol/L (3.5-5.1); Sodium 141 mmol/L (136-145); Total Protein 7.3 g/dL (6.6-8.7)
[2025-03-23] MEDS: ferric carboxy (PYXIS) 750 MG in sodium chloride 0.9% (100 ml) 100 ML 345 MG IV (09:55)
[2025-03-23 14:36] VITALS: BP 128/78; PULSE 76; RESP 16; TEMP 36.6; O2SAT 96
== END 2025-04-02 23:59 | disposition home or self-care (01) ==
PROVIDERS: PCP Family Medicine; Visit Provider Internal Medicine
DX: D50.0 Iron deficiency anemia secondary to blood loss (chronic) (principal); D50.9 Iron deficiency anemia, unspecified; N18.9 Chronic kidney disease, unspecified; Z79.899 Other long term (current) drug therapy; Z87.891 Personal history of nicotine dependence
CPT/HCPCS: 80053; 83615; 85025; 96365; 99213; J1439

== ENCOUNTER 2025-06-10 19:00 | Emergency (ER) | payer MEDICARE, SELFPAY ==
--- OUTSIDE RECORDS SUMMARY | 2022-04-01 09:10 | XMS_ITS | Continuity of Care Document ---
Author Organization [facility] Address [address] [place] [address] Phone Care Team Providers Care Wood Craftsman Name Role Phone Magnus SHARP MD, Rudy Unavailable Isabel vailable Allergies, Adverse Reactions, Alerts Substance Reaction Status Criticality No Known Drug Allergies Active No I nformation Medications Medication Instructions Dosage Effective Dates (start - stop) Status Comments Cymbalta 60 mg capsule,delayed release - Active Procedures Procedure Date Fluoro For Spine Injection Procedures Au Injection, POONAM, Lumbar Or Sacral, W/ Aby ging Office/outpatient visit,est, mod 2021 X-ray exam Lumbar 2-3 views MRI of lumbar spine Office/outpatient visit,est, low 2019 X-ray Exam Hip Unilat With Pelvis When P erf 2-3 View Office/outpatient visit,est, mod 2017 Injection Transforaminal, single, lumbar /sacral SNRB Inject transforaminal, lumbar/sacral, ea ch addtl level Marcaine Injection Omnipaque, 300-399 mg/ml, per ml 2017 Lidocaine For Injection, 10 Mg Per Ml Ap r-02-2018 Dalalone, Dexamethasone sodium phos MRI lumbar spine Wo Contrast X-ray exam Lumbar Complete Flex/ext View s Office/outpatient visit,new, mod 2017 Office/outpatient visit,est, mod 2013 Fluoro For Spine Injection Procedures Ju Omnipaque, 200-299 mg/ml, per ml 2013 Omnipaque, 200-299 mg/ml, per ml 2013 Omnipaque, 200-299 mg/ml, per ml 2013 Kenalog Triamcinolone acetonide inj Kenalog Triamcinolone acetonide inj Injection Transforaminal, single, lumbar /sacral SNRB Office/outpatient visit,new, mod 2013 X-ray exam Lumbar Complete Flex/ext View s Office/outpatient visit,est, low 2013 Office/outpatient visit,est, mod 2013 Office/outpatient visit,est, mod 2013 Knee Brace Hinged 3X 4X 5X MRI lower extrm joint, w/o contrast Office/outpatient visit,est, mod 2013 Affidavit Xray Copy Medical Record Copy Medical Record Copy Per Page Affidavit MRI lumbar spine Wo Contrast Office/outpatient visit,new, mod 2012 Office/outpatient visit,est, mod 2007 X-ray exam of heel, 2+ views Inject, spine, lumbar/sacral Fluoro For Spine Injections Inject, spine, lumbar/sacral Fluoro For Spine Injections Inject, spine, lumbar/sacral Fluoro For Spine Injections MRI lwr extrm joint, w/o contrast Office/outpatient visit,est, mod 2006 Inject, spine, lumbar/sacral Fluoro For Spine Injections Office/outpatient visit,boris, mod 2006 MRI of lumbar spine Office/outpatient visit,boris, mod 2006 X-ray exam of neck spine2-3 views Office consultation, moderate-high Feb-0 X-ray exam of hip, complete X-ray exam of pelvis, 1-2 views 007 X-ray exam of shoulder, complete 2006 Advance Directives Directive Yes / No Effective Date File Name No Information Encounters Encounter Description Practice Location Reason(s) For Visit Diagnoses Date Provider Providers Copied on Encounter [facility], [address] [place] [address], [id number], tel:[phone] [facility] Lumbar (chief complaint) Other spondylosis with radiculopathy , lumbosacral regionSpinal stenosis, lumbar region without neurogenic claudSpondylo listhesis, lumbar region 2 Magnus Grant. [address] [facility], [address], [id number], [place]. tel:[phone] Referring Provider: Jessica Dumont, [address] [place] [address] Suite [facility], [place], [address] . tel:[phone] Office/outpa tient visit,[facility], [facility], [facility] [address], [place], [place], [address], [place] tel:[phone] [facility] Lumbar (chief complaint)l umbar spine (chief complaint) Low back pain, unspecifiedRa diculopathy, site unspecifiedIn tervertebral disc stenosis of neural canal of lumbar region 2 Magnus Grant. [address] [facility], [address] [address], [place], [place], [address], [place]. tel:[phone] Referring Provider: Jessica Dumont, [facility] [address], [place], [address] . tel:[phone] [facility], [address] [facility] [address], [place], [place], [address], [place] tel:[phone] [facility] Dorsalgia, unspecified 2 [facility]. [address] [facility], [address], [place], [place], [address], [place]. tel:[phone] Referring Provider: Joe Ann, [address] [facility], [place], [address] . tel:[phone] Office/outpa tient visit,est, low [facility], [address] [facility] [address], [place], [place], [address], [place] tel:[phone] [facility] Groin pain when standing possible injury (chief complaint) Pain in right hip 0 Bull Marc. [address] [facility], [address], [place], [place], [address], [place]. tel:[phone] Referring Provider: Monico Gottlieb MD S, [address] [facility] [address], [place], [address] . tel:[phone] Office/outpa tient visit,est, [facility], [address] [facility] [address], [place], [place], [address], [place] tel:[phone] [facility] Lumbar (chief complaint) Other spondylosis with radiculopathy , lumbosacral regionLow back painOther chronic painSpinal stenosis, lumbar region without neurogenic claudSpondylo listhesis of lumbar region 0 201 8 Michelle Stratton. [address] [facility], [address], [place], [address], [place]. tel:[phone] Referring Provider: Viral Martinez I, [address] [facility] [address], [place], [address]. tel:[phone] [facility], [address] [facility] [address], [place], [place], [address], [place] tel:[phone] [facility] Other spondylosis with radiculopathy , lumbosacral region Mar- 0-201 8 Paracha Viral. [address] [facility], [address], [place], [address], [place]. tel:[phone] [facility], [address] [facility] [address], [place], [place], [address], [place] tel:[phone] [facility] Low back pain 6201 8 [facility]. [address] [facility], [address], [place], [place], [address], [place]. tel:[phone] Referring Provider: Jessica Dumont, [facility] [facility] [address], [place], [address] . tel:[phone] Office/outpa tient visit,[facility], [facility], [address] [address], [place], [place], [address], [place] tel:[phone] [facility] Hip Leg lower Back Pain Discomfort (chief complaint) LumbagoSpondy lolisthesis of lumbar regionSpinal stenosis, lumbar region without neurogenic claudOther spondylosis with radiculopathy , lumbosacral regionUnilate ral primary osteoarthriti s, left hipOther chronic pain 2201 8 Paracha Viral. [address] [facility], [address], [place], [address], [place]. tel:[phone] Referring Provider: Jessica Dumont, [facility] [facility] [address], [place], [address] . tel:[phone] Office/outpa tient visit,[facility], [address] [facility] [address], [place], [place], [address], [place] tel:[phone] [facility] lumbar spine (chief complaint) SPONDYLOLISTH ESISLUMBOSACR SPONDYLOLYSIS 201 4 Lord Tree. [address] [facility], [address], [place], [place], [address], [place]. tel:[phone] Referring Provider: Jessica Dumont, [address] [facility] [address], [place], [address] . tel:[phone] [facility], [address] [address], [place], [place], [address], [place] tel:[phone] [facility] SPONDYLOLISTH ESISLUMBOSACR SPONDYLOLYSIS 4 Isaac Barksdale. [address] [place] [address], [address] [address], [place], [place], [address], [place]. tel:[phone] [facility], [address] [facility] [address], [place], [place], [address], [place] tel:[phone] [facility] lumbar spine (chief complaint) LUMBOSACR SPONDYLOLYSIS SPONDYLOLISTH ESIS 4 Lord Tree. [address] [place] [address], [address] [address], [place], [place], [address], [place]. tel:[phone] Referring Provider: Jessica Dumont, [address] [address], [place], [address] . tel:[phone] [facility], [address] [place] [address], [place], [place], [address], [place] tel:[phone] [facility] LUMBOSACR SPONDYLOLYSIS 4 Lord Tree. [address] [place] [address], [address] [address], [place], [place], [address], [place]. tel:[phone] Office/outpa tient visit,new, [facility], [address] [address], [place], [place], [address], [place] tel:[phone] [facility] lumbar spine (chief complaint) LUMBOSACR SPONDYLOLYSIS Radiculopathy of lumbar regionBaker's cyst of kneeSPONDYLOL ISTHESIS 4 Lord Tree. [address] [place] [address], [address] [address], [place], [place], [address], [place]. tel:[phone] Referring Provider: Jessica Dumont, [address] [facility] [address] [address], [place], [address] . tel:[phone] Office/outpa tient visit,est, low [facility], [address] [address], [place], [place], [address], [place] tel:[phone] [facility] lumbar spine (chief complaint) LUMBOSACR SPONDYLOLYSIS SPONDYLOLISTH ESIS 4 Ghulam Lopez. [address] [facility], [address] [address], [place], [place], [address], [place]. tel:[phone] Referring Provider: Jessica Dumont, [address] [facility] [address] [facility], [place], [address] . tel:[phone] Office/outpa tient visit,est, [facility], [address] [address], [place], [place], [address], [place] tel:[phone] [facility] right knee- arthritis- tendonitis (chief complaint) JOINT PAIN-L/LEG 4 Bull Marc. [address] [address], [place], [place], [address], [place]. tel:[phone] Referring Provider: Jessica Dumont, [address] [facility] Suite [facility], [place], [address] . tel:[phone] Office/outpa tient visit,est, [facility], [address] [place] [address], [place], [place], [address], [place] tel:[phone] [facility] JOINT PAIN-L/LEGSPR AIN MEDIAL COLLAT LIG 4 Ghulam Lopez. [address] [facility], [address] [address], [place], [place], [address], [place]. tel:[phone] Referring Provider: Jessica Dumont, [address] [address], [place], [address] . tel:[phone] [facility], [address] [place] [address], [place], [place], [address], [place] tel:[phone] [facility] JOINT PAIN-L/LEG Apr-1 6 4 [facility]. [address] [facility], [address], [place], [place], [address], [place]. tel:[phone] Referring Provider: Shamir Jiang, [address] [facility] [address], [place], [address] . tel:[phone] Office/outpa tient visit,est, mod [facility], [address] [facility] [address], [place], [place], [address], [place] tel:[phone] [facility] right knee pain (chief complaint)b ilateral lumbar spine pain (chief complaint) SPONDYLOLISTH ESISLUMBOSACR SPONDYLOLYSIS CHONDROMALACI A PATELLAEJOINT PAIN-L/LEG Apr-1 4-201 4 Ghulam Lopez. [address] [facility], [address], [place], [place], [address], [place]. tel:[phone] Referring Provider: Jessica Dumont, [address] [facility] [address], [place], [address] . tel:[phone] [facility], [address] [facility] [address], [place], [place], [address], [place] tel:[phone] [facility] No Information December-0 8-201 3 Administrati ve Provider. [address] [facility], [address], [place], [place], [address], [place]. tel:[phone] Referring Provider: Jessica Dumont, [address] [facility] [address], [place], [address] . tel:[phone] [facility], [address] [place] [address] [address], [place], [place], [address], [place] tel:[phone] [facility] No Information Nov-2 3-201 3 Administrati ve Provider. [address] [place] [address], [address], [place], [place], [address], [place]. tel:[phone] [facility], [address] [place] [address] [address], [place], [place], [address], [place] tel:[phone] [facility] No Information 2 3 Administrati ve Provider. [address] [place] [address], [facility] [address], [place], [place], [address], [place]. tel:[phone] Referring Provider: Jessica Dumont, [address] [place] [address], [place], [address] . tel:[phone] [facility], [address] [place] [address], [place], [place], [address], [place] tel:[phone] [facility] SPONDYLOLISTH ESIS Oct-0 3 [facility]. [address] [place] [address], [address], [place], [place], [address], [place]. tel:[phone] Referring Provider: Shamir Jiang, [address] [place] [address] [address], [place], [address] . tel:[phone] Office/outpa tient visit,new, [facility], [address] [place] [address], [place], [place], [address], [place] tel:[phone] [facility] SPONDYLOLISTH ESISLUMBOSACR SPONDYLOLYSIS Fe 3 Ghulam Lopez. [address] [place] [address], [facility] [address], [place], [place], [address], [place]. tel:[phone] Office/outpa tient visit,est, [facility], [address] [place] [address], [place], [place], [address], [place] tel:[phone] [facility] No Information 2 200 8 Isaac Barksdale. [address] [place] [address], [facility] [address], [place], [place], [address], [place]. tel:[phone] Referring Provider: Chely Farrar, [address] [place] [address] Dr [address], [place], [address]. tel:[phone] [facility], [address] [facility] [address], [place], [place], [address], [place] tel:[phone] [facility] No Information 2 8 Isaac Barksdale. [address] [address], [place], [place], [address], [place]. tel:[phone] Referring Provider: Chely Farrar, [address] [facility] [address], [place], [address]. tel:[phone] [facility], [address], [id number], [place] tel:[phone] [facility] No Information 0 8 Isaac Barksdale. [address] [address], [place], [place], [address], [place]. tel:[phone] Referring Provider: Chely Farrar, [address] [facility] [address], [place], [address]. tel:[phone] [facility], [address] [address], [place], [place], [address], [place] tel:[phone] [facility] No Information 0 200 7 Isaac Barksdale. [address] [address], [place], [place], [address], [place]. tel:[phone] Referring Provider: Chely Farrar, [address] [facility] [address], [place], [address]. tel:[phone] [facility], [address], [id number], [place] tel:[phone] [facility] No Information 0 3200 7 Isaac Barksdale. [address] [address], [place], [place], [address], [place]. tel:[phone] Referring Provider: Shamir Jiang, [address] [address], [place], [address] . tel:[phone] Office/outpa tient visit,est, [facility], [address] [facility] [address], [place], [place], [address], [place] tel:[phone] [facility] No Information 7 Isaac Barksdale. [address] [facility], [address], [place], [place], [address], [place]. tel:[phone] Referring Provider: Chely Farrar, [address] [place] [address] [address], [place], [address]. tel:[phone] [facility], [address] [facility] [address], [place], [place], [address], [place] tel:[phone] [facility] No Information 7 Isaac Barksdale. [address] [facility], [address] [address], [place], [place], [address], [place]. tel:[phone] Referring Provider: Chely Farrar, [address] [place] [address] [address], [place], [address]. tel:[phone] Office/outpa tient visit,est, [facility], [address] [facility] [address], [place], [place], [address], [place] tel:[phone] [facility] No Information 7 Isaac Barksdale. [address] [facility], [address], [place], [place], [address], [place]. tel:[phone] Referring Provider: Chely Farrar, [address] [place] [address] [address], [place], [address]. tel:[phone] [facility], [address] [facility] [address], [place], [place], [address], [place] tel:[phone] [facility] No Information 7 Isaac Barksdale. [address] [facility], [facility] 100, [place], [place], [address], [place]. tel:[phone] Referring Provider: Shamir Jiang, [address] [facility] [address] [place] [address], [address] . tel:[phone] Office/outpa tient visit,est, mod [facility], [address], [address], tel:[phone] [facility] No Information 7 Isaac Barksdale. [address], [id number], . tel:[phone] Referring Provider: Chely Farrar, [address] [place] [address] [address], [place], [address]. tel:[phone] Office consultation , moderate-hig h [facility], [address] [place] [address], [id number], tel:[phone] [facility] No Information 7 Юлия Null. [address], [id number], . tel:[phone] Referring Provider: Chely Farrar, [address] [place] [address] [address], [place], [address]. tel:[phone] Family History Family Member Type Diagnosis Age At Onset Mother Problem (finding) Heart Disease Mother Problem (finding) Osteoarthritis Mother Problem (finding) Diabetes Father Problem (finding) Heart Disease Payers Payer name Insurance type Covered libertarian ID Authoriza tion(s) [place] WPS Part B MB [id number] [facility] Blue Shiel d [facility] [id number] Social History Type Description Quantity Date Captured Comments Alcohol Use Details No Caffeine Use Details Tobacco Use Status No Information Smoking Status Former smoker Non-Smoking Tobacco Use Details : No Details Available : No Details Available Sex Female Vital Signs Date / Time: Height Weight BMI Pulse Rate Blood Pressure Temperature Respiratory Rate Body Surface Area Head Circumference Head Circ. Percentile Wt./Humberto. Percentile BMI percentile Pulse Ox Inhaled Ox 2:52 PM 62.00 in 81.647 kg (180.00 lbs) 32.9 2 kg/m eter (2) Chief Complaint And Reason For Visit From encounter dated '04/01/2022 15:10'. Lumbar (chief complaint). Description: Ivone Sawant is a pleasant 66-year-old female who presents for a follow-up evaluation to proceed with a left L5 transforaminal epidural steroid injection. She continues to endorse left leg pain. Reason For Referral Reason For Referral No Information Plan Of Treatment Date Type Action Status Referral Ordered: Injection Transforaminal, single, lumbar/sacral SNRB LT spine, lumbar ordered Referral Ordered: X-ray exam Lumbar 2-3 views spine, lumbar ordered Referral Ordered: X-ray Exam Hip Unilat With Pelvis When Perf 2-3 View RT hip ordered Referral Ordered: MRI lumbar spine Wo Contrast spine, lumbar Appointment date/timeframe: 10/16/2017 ordered Referral Ordered: X-ray exam Lumbar Complete Flex/ext Views spine, lumbar ordered Referral Ordered: Injection, single, epidural/subarachnoid; lumbar/sacral spine, lumbar Appointment date/timeframe: 10/11/2012 ordered Referral Ordered: X-ray exam Lumbar Complete Flex/ext Views ordered Referral Ordered: X-ray exam of pelvis, 1-2 views ordered Referral Ordered: MRI lumbar spine Wo Contrast Appointment date/timeframe: 10/01/2012 ordered History Of Present Illness Encounter Date Complaint History Of Prese nt Illness Lumbar Ivone Sawant is a pleasant 66-year-old female who presents for a follow-up evaluation to proceed with a left L5 transforaminal epidural steroid injection. She continues to endorse left leg pain. Lumbar Ivone comes i nto the office for lumbar spine. lumbar spine Ivone Swaant is a pleasant 66-year-old female who has a history of left L5 radiculopathy secondary to foraminal stenosis at L5-S1 in the setting of spondylolisthesis. She has undergone injections in 2018 with significant relief. The patient has had a return of her symptoms that pressed her from riding her bike, and she feels like she ambulates with a limp. She started formal physical therapy and completed 6 weeks of formal physical therapy. The patient then underwent an MRI of the lumbar spine, which was reviewed today. Groin pain when adrienne ding possible injury The symptoms began 2 weeks ago. The symptoms are described as aching. Aggravating factors include climbing stairs, sitting. Relieving factors include OTC medicine, rest. Associated symptoms include catching, decreased ROM, limping, popping. Ivone is an established patient who presents with right groin pain. The pain has been there for about 2 weeks, possibly from lifting. In October, she was holding her grandson, got up, and fell, landing on the right side. She does have some low back pain and has had injections in the low back before. She denies any tingling or numbness. We will obtain x-rays. Lumbar Patient presents for a Left L4-5, Left L5-S1 Lumbar Selective Nerve Root Block Hip Leg lower Back P ain Discomfort Patient presents for Lumbar pain lumbar spine Ivone Sawant is a 58 year old female. She presents with pain. The problem is better. She rates her current pain as 0/10. She has been treated with a nerve block to the L5. lumbar spine Patient is prese nt for a bilateral lumbar L5 selective nerve root block. Patient pain score prior to procedure is a 2/10. lumbar spine Ivone Sawant is a 58 year old female. She presents with pain. Currently the patient states that the symptoms are mild. The pain is described as aching. The patient indicates that the pain is located in the lower back. She rates her current pain as 1/10. The pain radiates lower back then to the lower extremities. The symptoms are aggravated by walking. Ivone states that the symptoms are relieved by rest. The patient has had a previous MRI. She has been treated with injection. lumbar spine Ms Sawant is a 58 year old female who complains of lumbar spine. She presents with pain. She states that the symptoms have been acute traumatic and began on 09/06/2012. Functional Status Date Functional Assessmen t No Information Instructions Date Instruction Additional Infor yovany Plan of Care: Epifanio Sawant is a pleasant 66-year-old female with grade 1 spondylolisthesis, L5-S1, foraminal stenosis, L5-S1 and left leg radiculopathy, likely L5. We are going to proceed with a left L5 transforaminal epidural steroid injection. She will call in 2 weeks to provide an update on her overall progress.Procedure Note: Left L5 Transforaminal Epidural Steroid Injection Under FluoroscopyPre-procedure diagnoses are grade 1 spondylolisthesis, L5-S1, foraminal stenosis, L5-S1 and left leg radiculopathy, likely L5.Post-procedure diagnoses are grade 1 spondylolisthesis, L5-S1, foraminal stenosis, L5-S1 and left leg radiculopathy, likely L5.Provider is Rudy Agudelo MD.Complications: None.EBL: None.Prior to the procedure, verbal consent was obtained and all allergies were confirmed. The patient was made aware of all risks and benefits from this procedure. The patient was then placed prone on a radiolucent table and the left L5 pedicle was identified via pulsed fluoroscopy. The skin was marked, and prepped in a sterile fashion with Betadine and a sterile sheet. Then approximately 5 cc 0.5% lidocaine was used to anesthetize the skin, subcutaneous tissues, and muscles for local anesthesia. After proper anesthesia was obtained, a spinal needle was slowly inserted and advanced under fluoroscopic guidance to the 6 o'clock position beneath the left L5 pedicle. A lateral view showed transforaminal placement of the needle. After aspiration revealed no blood or CSF return, approximately 0.3 cc of Omnipaque was injected, which showed a dye pattern consistent with epidural placement of the needle. Approximately 5 cc, including 2 cc of Kenalog 80 mg and 3 cc of normal saline, was injected in a slow incremental fashion into the foraminal space. The patient tolerated the procedure well without complications. At this point, the needle was removed, the skin was cleaned, and a sterile bandage was applied. The patient was observed and vital signs were monitored. The patient was discharged in a stable condition with instructions to follow up as discussed.The medical record documentation of this Provider's service encounter was entered by Julee Fitch, acting as Regulatory Affairs Strategy Specialist for Rudy Agudelo MD. Related to Other spondylosis with radiculopathy, lumbosacral region Plan of Care:Megan Sawant is a pleasant 66-year-old female who has severe foraminal stenosis bilaterally at L5-S1 and lumbar radiculopathy following an L5 dermatomal distribution that has been recalcitrant to conservative care. Secondary to the failure of conservative care to render any relief, I recommend a lumbar L5 transforaminal epidural steroid injection. We will seek authorization for this.The medical record documentation of this Provider's service encounter was entered by Sherri Ignacio, acting as Regulatory Affairs Strategy Specialist for Rudy Agudelo MD. Related to Intervertebral disc stenosis of neural canal of lumbar region Increase activity level Assessments Type Assessment Date assessment Other spondylosis with radiculop athy, lumbosacral region assessment Spinal stenosis, lumbar region w ithout neurogenic jemima assessment Spondylolisthesis, lumbar region Patient Care Teams Name Effective Dates (start - stop) Status Members No Information
[2025-06-10 19:06] VITALS: BP 135/66; PULSE 93; RESP 16; TEMP 36.5; O2SAT 97; BMI 26.6
--- OUTSIDE RECORDS SUMMARY | 2025-06-10 19:10 | XMS_ITS | Clinical Summary ---
Author Organization [facility] Address [address] [place] [address] Phone Care Team Providers Care Commander Internal Affairs Name Role Phone Chaka Gracia MD Primary Care Provider Allergies Active Allergy Reactions Criticality Noted Date Comments Atorvastatin Unknown 10/17/2015 Clopidogrel Anxiety 10/17/2015 Lisinopril Anxiety 09/12/2015 Medications MULTIVIT WITH CALCIUM,IRON,MD N (WOMEN'S MULTIPLE VITAMINS ORAL) Take by mouth. Active cyanocobalamin 1,000 mcg Tablet Take 1,000 mcg by mouth daily. Active metFORMIN (GLUCOPHAGE) 1,000 mg tablet Take 1,000 mg by mouth 2 times daily with meals. Active simvastatin (ZOCOR) 80 mg tablet Take 80 mg by mouth Daily LATE. Active citalopram (CELEXA) 20 mg tablet Take 20 mg by mouth daily at bedtime. Active aspirin (JENNIFER) 325 mg tablet Take 325 mg by mouth daily. Active ranitidine HCl (ZANTAC) 300 mg Capsule Take 300 mg by mouth 2 times daily. Active glimepiride (AMARYL) 2 mg tablet Take 2 mg by mouth daily with breakfast. Active sertraline (ZOLOFT) 100 mg tablet Take 100 mg by mouth daily. Active losartan (COZAAR) 100 mg tablet Take 100 mg by mouth daily. Active naproxen (NAPROSYN) 500 mg tablet Take 500 mg by mouth 2 times daily with meals. Active bisoprolol-hydr ochlorothiazide (ZIAC) 10-6.25 mg tablet Take 1 Tablet by mouth daily. 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 Active clonazePAM (KLONOPIN) 0.5 mg Tablet Take 0.5 mg by mouth 2 times daily. Active insulin 70/30 nph-regular (HUMULIN 70/30;NOVOLIN 70/30) 100 unit/mL Solution Inject by subcutaneous injection 2 times daily before meals 40 units in the AM, 30 units in the PM. Active hydrOXYzine pamoate (VISTARIL) 25 mg capsule Take 25 mg by mouth 3 times daily as needed for Itching. Active losartan (COZAAR) 50 mg tablet 6 Active ranitidine (ZANTAC) 300 mg tablet 6 Active coenzyme Q10 Capsule Take 10 mg by mouth daily. Active Active Problems Problem Noted Date Diagnosed Date S/P carpal tunnel release, left sx 10/25/1511/08 S/P left trigger thumb release on 10/25/152015 S/P carpal tunnel release, right 10/02/15 10/17/19 16 Bilateral carpal tunnel syndrome 09/12/2015 Trigger thumb 09/12/2015 Social History Tobacco Use Types Packs/Day Years Used Date Smoking Tobacco: Former Cigarettes 0.5 32 0 09/25/1973 - 09/25/2005 Smokeless Tobacco: Never Alcohol Use Standard Drinks/Week Comments No 0 (1 standard drink = 0.6 oz pur e alcohol) Comments No Sex and Gender Information Value Date Recorded Sex Assigned at Not on file 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 Gender Identity Not on file Sexual Orientation Not on file Last Filed Vital Signs Vital Sign Reading Time Taken Comments Blood Pressure 121/60 01/16/2016 12:58 PM CDT Pulse 80 01/16/2016 12:58 PM CDT Temperature 36.1 C (96.9 F) 10/25/2015 8:30 AM CDT Respiratory Rate 14 10/25/2015 8:30 AM CDT Oxygen Saturation 98% 10/25/2015 8:30 AM CDT Inhaled Oxygen Concentration - - Weight 88 kg (194 lb) 01/16/2016 12:58 PM CDT Height 167.6 cm (5' 6 ) 01/16/2016 12:58 PM CDT Body Mass Index 31.31 01/16/2016 12:58 PM CDT Plan of Treatment Health Maintenance Due Date Last Done Comments DTAP/TDAP/TD VACCINES (1 - Tdap) 1975 BREAST CANCER SCREENING 1996 COLORECTAL SCREENING 2001 Colorectal Cancer Screening 2001 FIT-DNA Q 3 years 2001 FIT/FOBT Q 1 year 2001 Flex Sig/CT Colonography Q 5 years 2001 PNEUMOCOCCAL VACCINE 50+ YEARS (1 of 1 - PCV) 07/02/20 06 ZOSTER VACCINE (1 of 2) 2006 OSTEOPOROSIS SCREENING 2021 INFLUENZA VACCINE (#1) 2025 RSV VACCINE (60+ or ) (1 - 1-dose 75+ series) 2031 Insurance [employer] [address] [place] [id number] Advance Directives For more information, please contact: [phone] * Full Code (Latest Code Status on File) Date Activated Date Inactivated Comments 10/25/2015 5:59 AM 10/25/2015 11:10 AM * Full Code Date Activated Date Inactivated Comments 10/02/2015 5:50 AM 10/02/2015 10:59 AM Care Teams Commander Internal Affairs Relationship Specialty Start Date End Date Chaka Gracia MD [address] [place] [address] PCP - General Family Practice 10/02/15
--- OUTSIDE RECORDS SUMMARY | 2025-06-10 19:10 | XMS_ITS | Clinical Summary ---
Author Organization [facility] Address [address] [facility] [address] [facility] Attn: Epic Prelude ADT CHARLIE MATHEW [address] Care Team Providers Care Tufter Name Role Phone Chaka Gracia MD Primary Care Provider [phone] Allergies Active Allergy Reactions Criticality Noted Date Comments Atorvastatin Unknown 10/17/2015 Clopidogrel Anxiety 10/17/2015 Lisinopril Anxiety 09/12/2015 Medications raNITIdine (ZANTAC) 300 mg tablet 6 Active multivit with calcium,iron,mi n (WOMEN'S MULTIPLE VITAMINS ORAL) Take by mouth. 6 Active coenzyme Q10 Capsule Take 10 mg by mouth daily. 6 Active sertraline (ZOLOFT) 100 mg tablet Take 100 mg by mouth daily. 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 6 Active losartan (COZAAR) 100 mg tablet Take 100 mg by mouth daily. 6 Active citalopram (CeleXA) 20 mg tablet Take 20 mg by mouth daily at bedtime. 6 Active losartan (COZAAR) 50 mg tablet 6 Active hydrOXYzine pamoate (VISTARIL) 25 mg capsule Take 25 mg by mouth 3 times daily as needed for Itching. 6 Active aspirin (JENNIFER) 325 mg tablet Take 325 mg by mouth daily. 6 Active insulin NPH-regular (HUMULIN 70-30,NOVOLIN 70-30) 100 unit/mL (70-30) injection Inject by subcutaneous injection 2 times daily before meals 40 units in the AM, 30 units in the PM. Active clonazePAM (KlonoPIN) 0.5 mg Tablet Take 0.5 mg by mouth 2 times daily. Active cyanocobalamin 1,000 mcg Tablet Take 1,000 mcg by mouth daily. Active raNITIdine (ZANTAC) 300 mg Capsule Take 300 mg by mouth 2 times daily. Active bisoprolol-hydr oCHLOROthiazide (ZIAC) 10-6.25 mg tablet Take 1 Tablet by mouth daily. Active metFORMIN (GLUCOPHAGE) 1,000 mg tablet Take 1,000 mg by mouth 2 times daily with meals. Active simvastatin (ZOCOR) 80 mg tablet Take 80 mg by mouth Daily LATE. Active glimepiride (AMARYL) 2 mg tablet Take 2 mg by mouth daily with breakfast. Active naproxen (NAPROSYN) 500 mg tablet Take 500 mg by mouth 2 times daily with meals. Active Active Problems Problem Noted Date Diagnosed Date S/P carpal tunnel release, left sx 10/25/1511/08 S/P left trigger thumb release on 10/25/152015 Bilateral carpal tunnel syndrome 09/12/2015 Trigger thumb 09/12/2015 Encounters Date Type Department Care Team Description 05/31/2025 External Device Data [facility] ABSTRACTION Provider, Abstract 05/31/2025 External Device Data [facility] ABSTRACTION Provider, Abstract 05/24/2025 External Device Data [facility] ABSTRACTION Provider, Abstract 05/23/2025 External Device Data [facility] ABSTRACTION Provider, Abstract 04/18/2025 External Device Data [facility] ABSTRACTION Provider, Abstract 04/11/2025 External Device Data [facility] ABSTRACTION Provider, Abstract from Last 3 Months Social History Tobacco Use Types Packs/Day Years Used Date Smoking Tobacco: Former Cigarettes Q uit: 09/25/2005 Smokeless Tobacco: Never Alcohol Use Standard Drinks/Week Comments No 0 (1 standard drink = 0.6 oz pur e alcohol) Comments Unknown Sex and Gender Information Value Date Recorded Sex Assigned at Not on file 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 Gender Identity Not on file Sexual Orientation Not on file Last Filed Vital Signs Vital Sign Reading Time Taken Comments Blood Pressure 121/60 01/16/2016 12:58 PM CDT Pulse 80 01/16/2016 12:58 PM CDT Temperature 36.1 C (96.9 F) 10/25/2015 8:30 AM CDT Respiratory Rate 14 10/25/2015 8:30 AM CDT Oxygen Saturation - - Inhaled Oxygen Concentration - - Weight 88 kg (194 lb) 01/16/2016 12:58 PM CDT Height 167.6 cm (5' 6 ) 01/16/2016 12:58 PM CDT Body Mass Index 31.31 01/16/2016 12:58 PM CDT Plan of Treatment Health Maintenance Due Date Last Done Comments DIABETES ANNUAL FOOT EXAM 1974 DIABETES ANNUAL RETINAL EXAM 1974 DIABETES MICROALBUMIN ANNUAL SCREEN 1974 LDL CHOLESTEROL ANNUAL 1974 DTAP/TDAP/TD VACCINES (1 - Tdap) 1975 BREAST CANCER SCREENING 1996 COLORECTAL SCREENING 2001 Colorectal Cancer Screening 2001 FIT-DNA Q 3 years 2001 FIT/FOBT Q 1 year 2001 Flex Sig/CT Colonography Q 5 years 2001 RSV VACCINE (60+ or ) (1 - Risk 50-74 years 1-dose series) 2006 ZOSTER VACCINE (1 of 2) 2006 PNEUMOCOCCAL VACCINE 50+ YEA RS (2 of 2 - PCV) 03/30/2019 03/30/2018 OSTEOPOROSIS SCREENING 2021 DIABETES HBA1C Q 6 MONTHS 12/16/2023 06/17/2023 INFLUENZA VACCINE (#1) 2025 , 05/04/2022, 06/03/2021 COVID-19 Vaccine (6 - 2023-2 5 season) 2025 04/18/2024, 05/30/2023, 01/16/2022, Additional history exists Insurance * Guarantor: Ivone Tejeda Account Type Relation to Patient Date of Phone Billing Address Personal/Family Self 1955 [address] [place] [id number] [facility] [employer] HMO [place] Care Teams Tufter Relationship Specialty Start Date End Date Chaka Gracia MD [address] [place] [address] PCP - General Family Practice 10/02/15
--- NOTE | 2025-06-10 20:30 | CTR_ITS ---
PROCEDURE INFORMATION: Exam: CTA Head With Contrast, Arteriography Exam date and time: 06/10/2025 9:16 PM Age: 69 years old Clinical indication: Pain; Headache; C/O TINOCO with RT facial numbness. ; Additional info: Facial numbness, headache, HX of arterial disease TECHNIQUE: Imaging protocol: Computed tomographic angiography of the head with contrast. Exam focused on the arteries. 3D rendering (Not supervised by radiologist): MIP and/or 3D reconstructed images were created by the technologist. Radiation optimization: All CT scans at this facility use at least one of these dose optimization techniques: automated exposure control; mA and/or kV adjustment per patient size (includes targeted exams where dose is matched to clinical indication); or iterative reconstruction. Contrast material: OMNI 350; Contrast volume: 100 ml; Contrast route: INTRAVENOUS (IV); COMPARISON: CT head wo con* [id number] 09/12/2023 12:44 AM RADIATION DOSE METRICS: Total DLP (mGy-cm): 776.69 FINDINGS: ANTERIOR CIRCULATION: Right internal carotid artery: 53% atherosclerotic stenosis of the cavernous right ICA. Right middle cerebral artery: No occlusion or significant stenosis. No aneurysm. Right anterior cerebral artery: No occlusion or significant stenosis. No aneurysm. Left internal carotid artery: 53% stenosis of the cavernous left ICA. Left middle cerebral artery: No occlusion or significant stenosis. No aneurysm. Left anterior cerebral artery: No occlusion or significant stenosis. No aneurysm. POSTERIOR CIRCULATION: Right vertebral artery: No occlusion or significant stenosis. No aneurysm. Left vertebral artery: No occlusion or significant stenosis. No aneurysm. Basilar artery: No occlusion or significant stenosis. No aneurysm. Right posterior cerebral artery: No occlusion or significant stenosis. No aneurysm. Left posterior cerebral artery: No occlusion or significant stenosis. No aneurysm. Left posterior communicating artery: A origin left posterior communicating artery is noted. No stenosis. Brain: Cerebral volume loss is noted, likely age related. No acute intracranial hemorrhage. Pastor-white differentiation is maintained. No evidence of acute ischemic stroke. No intracranial mass or mass effect is noted. Benign dural calcifications are present. Cerebral ventricles: No ventriculomegaly. Bones/joints: Unremarkable. No acute fracture. Soft tissues: Unremarkable. CT/CT angio head [id number] IMPRESSION: 1. No acute intracranial hemorrhage. 2. No evidence of acute ischemic infarct. 3. Moderate stenosis of the right internal carotid artery (50-69% luminal stenosis) according to NASCET calculations. 4. Moderate stenosis of the left internal carotid artery (50-69% luminal stenosis) according to NASCET calculations. 5. No large vessel occlusion.
[2025-06-10 21:12] LABS: Hematocrit 25.6 % (36-47); Hemoglobin 7.60 g/dL (11.27-16.99); Mean Corpuscular HGB Conc 29.7 g/dL (30-55); Mean Corpuscular Hemoglobin 26.6 pg (27-33); Mean Corpuscular Volume 89.5 fl (85-98); Nucleated Red Blood Cells % 0 %; Platelet Count 322 10^3/cmm (157-399); Red Blood Count 2.86 10^6/uL (3.85-5.65); White Blood Count 4.37 10^3/uL (3.29-11.43)
[2025-06-10] MEDS: iohexol 350 mg/mL 500 mL Btl (per mL) IV (21:16)
[2025-06-10 21:31] LABS: Alanine Aminotransferase 9 U/L (0-33); Albumin Level 4.4 g/dL (3.5-5.2); Alkaline Phosphatase 82 U/L (35-105); Anion Gap 15.5 (5-19); Aspartate Amino Transferase 17 U/L (0-32); Blood Urea Nitrogen 19 mg/dL (8-23); Calcium 9.1 mg/dL (8.5-10.5); Carbon Dioxide 21 mmol/L (22-29); Chloride 110 mmol/L (98-107); Creatinine Clr Calc Pharmacy 46.4080; Globulin 2.9 g/dL (1.3-4.6); Glucose 87 mg/dL (65-115); Osmolality Calculated 296 mOsm/kg (285-295); Potassium 4.5 mmol/L (3.5-5.1); Sodium 142 mmol/L (136-145); Total Protein 7.3 g/dL (6.6-8.7)
--- NOTE | 2025-06-10 21:44 | W.ED.EXTPRO ---
Documented by User: VELMA Curran 06/10/25 22:52 HPI - Extremity Problem General: Chief complaint: Extremity Problem,Nontraumatic Stated complaint: Right side swelling and weak Time Seen by Provider: 06/10/25 19:22 Source: patient Mode of arrival: ambulatory Limitations: no limitations History of Present Illness: Patient is a 69-year-old female who presents to the emergency department complaining of headache and right sided weakness and facial swelling for the past few days. She has multiple complaints, states that she just feels off. She is set to have surgery next Thursday where she is to have stents placed in her right leg due to severe peripheral artery disease. States that the pain has been steady and nothing changed here, she is just concerned with the other symptoms she is having. She had told triage that if everything was normal here is that she wanted transfer to [facility] as she knows that something is wrong with her. Vital stable at this time, no chest pain or shortness of breath, no coolness or pallor or other new symptoms to her lower extremities. She recently did have stents placed in her left lower extremity a couple weeks ago. Associated symptoms: Deny chest pain, fever(s) or rash Related Data Home Medications ?Medication ?Instructions ?Recorded ?Confirmed metformin 1,000 mg tablet,extended 1,000 mg PO BID 08/10/19 03/23/25 release 24hr (osmotic) metoprolol tartrate 25 mg tablet 12.5 mg PO BID 08/10/19 03/23/25 multivitamin (Daily Multi-Vitamin 1 tab PO QAM 08/10/19 03/23/25 tablet) nitroglycerin 0.4 mg sublingual 0.4 mg sublingual ONCE PRN chest 08/10/19 03/23/25 tablet (Nitrostat) pain simvastatin 80 mg tablet 50 mg PO DAILY 08/10/19 03/23/25 fluticasone propionate 50 1 spray intranasal DAILY PRN 12/01/22 03/23/25 mcg/actuation nasal allergy symptoms spray,suspension (Allergy Relief (fluticasone)) insulin glargine U-300 conc 300 30 unit SUBCUT DAILY 12/01/22 03/23/25 unit/mL (1.5 mL) subcutaneous pen (Tyler SolRhea U-300 Insulin) levocetirizine 5 mg tablet 5 mg PO DAILY 12/01/22 03/23/25 mecobalamin (vitamin B12) 1,000 1,000 mcg PO DAILY 06/15/23 03/23/25 mcg chewable tablet (B12 Active) escitalopram oxalate 10 mg tablet 10 mg PO DAILY 07/14/23 03/23/25 sumatriptan succinate 25 mg tablet mg PO 04/06/24 03/23/25 lisinopril 5 mg tablet mg PO 12/28/24 03/23/25 buspirone 7.5 mg tablet mg PO 03/23/25 03/23/25 cilostazol 100 mg tablet mg PO 03/23/25 03/23/25 pantoprazole 40 mg tablet,delayed mg PO 03/23/25 03/23/25 release Previous Rx's ?Medication ?Instructions ?Recorded exenatide 10 mcg/dose(250 10 mcg (0.04 mL) SUBCUT BID #2.4 mL 04/29/22 mcg/mL)2.4 mL subcutaneous pen injector ([employer]) tramadol 50 mg tablet 50 mg PO Q6H PRN pain #30 tabs 06/09/22 tizanidine 4 mg tablet 4 mg PO BID PRN muscle spasticity 08/13/22 #60 tabs gabapentin 100 mg capsule 100 mg PO BID pain #60 caps 08/31/23 Allergies Allergy/AdvReac Type Severity Reaction Status Date / Time bupropion Allergy Unknown headache Verified 03/23/25 08:40 fluoxetine (From Prozac) Allergy Unknown anxiety Verified 03/23/25 08:40 lisinopril Allergy Unknown unknown Verified 03/23/25 08:40 pollen extracts Allergy Unknown unknown Verified 03/23/25 08:40 sitagliptin (Januvia) Allergy Unknown unknown Verified 03/23/25 08:40 Review of Systems General: Reports: 10 or more systems reviewed and unremarkable except in HPI and below Const: Denies: fever(s), chills or fatigue Eyes: Denies: change in vision ENMT: Reports: other (facial swelling); Denies: throat pain, ear or mastoid pain or nasal discharge Card: Denies: chest pain, palpitations, swelling of feet/ankles or lightheadedness Resp: Denies: dyspnea, productive cough or wheezing GI: Denies: abdominal pain, nausea, vomiting, diarrhea or constipation : Denies: flank pain, difficulty voiding, dysuria or urinary frequency Musc: Denies: neck pain, back pain or joint pain Skin/Breast: Denies: rash Neuro: Reports: headache(s) and weakness in extremities (right side); Denies: numbness in extremities PFSH ED PFSH: Medical History CKD (chronic kidney disease) DJD (degenerative joint disease) Diabetes Hypochromic microcytic anemia Atypical chest pain Atherosclerotic heart disease of [place] coronary artery without angina pectoris Asymptomatic bilateral carotid artery stenosis Varicose ulcer of right lower extremity Hypertension Hyperlipemia, mixed PCO Anemia Peripheral vascular disease of extremity with claudication Diabetes 1.5, managed as type 2 Surgical History H/O esophagogastroduodenoscopy 10/06/19: normal Status post colonoscopy 10/06/19: normal History of hysterectomy (~1982) History of coronary artery stent placement Family History Father Hypertension Diabetes CAD (coronary artery disease) myocardial infarction age 70 Denies family history of Anesthesia complication Bleeding disorder Social History Smoking and tobacco/nicotine status: never used tobacco/nicotine Quit status (tobacco/nicotine): has quit using Former quit date comment: Quit in the 1969's, smoked x 10 years Second hand smoke exposure: No Alcohol intake: never Substance/Drug Use: never Adopted: No Caregiver/support person: Yes Lives independently: Yes Household members: none Housing: House Marital status: Single service: No Current occupational status: disabled Current occupational exposures/hazards: No Pets and animals: No Sexually active: No Do you think of yourself as: Straight/Heterosexual Current gender identity: Female Bianka/Denominational: None Special bianka needs: No Agree to transfusion: No Physical Exam Const: COMMON NORMALS: no acute distress, patient oriented x3 and no limitations GENERAL APPEARANCE: cooperative, comfortable and well developed ORIENTATION/CONSCIOUSNESS: Yes awake, Yes oriented to person, Yes oriented to place and Yes oriented to time HENMT: COMMON NORMALS: normocephalic, atraumatic and hearing grossly normal bilaterally HEAD & SCALP: normocephalic and atraumatic Eye: COMMON NORMALS: Equal, round and reactive pupils present, EOMs intact bilaterally and conjunctivae normal CONJUNCTIVA: Yes conjunctivae normal PUPIL: Yes Equal, round and reactive pupils present Neck/C-Spine: COMMON NORMALS: full ROM, supple and no JVD Resp: COMMON NORMALS: normal respiratory effort, No retractions, No use of accessory muscles and clear to auscultation bilaterally AUSCULTATION: clear to auscultation bilaterally Cardio: COMMON NORMALS: no JVD, regular rate, regular rhythm, No clicks present (Cardio), No murmurs present (Cardio) and No rub (Cardio) RATE: regular rate RHYTHM: regular rhythm GI: COMMON NORMALS: Normal to inspection, nondistended, normoactive bowel sounds present, Soft to palpation and non-tender AUSCULTATION: Yes normoactive bowel sounds PALPATION: Yes Soft to palpation RECTAL EXAM: deferred Extremity: COMMON NORMALS: normal to inspection, full ROM and capillary refill normal NARRATIVE EXTREMITY EXAM: Pulses palpable to right lower extremity, no coolness or pallor. Neuro: COMMON NORMALS: patient oriented x3, CN's II-XII intact bilaterally, moves all extremities, no focal motor deficits and no sensory deficits noted SENSORIUM/ORIENTATION: Yes oriented to person, Yes oriented to place and Yes oriented to time MOTOR EXAM: 5/5 motor strength present throughout OTHER: No facial droop, no aphasia. Skin: COMMON NORMALS: no rashes or lesions noted GENERAL SKIN EXAM: no rashes or lesions noted Course Vital Signs: Vital signs: Vital Signs Temperature 97.7 F 06/10/25 19:06 Pulse Rate 86 06/10/25 23:09 Respiratory Rate 16 06/10/25 23:09 Blood Pressure 137/74 06/10/25 23:09 Pulse Oximetry 98 06/10/25 23:09 Oxygen Delivery Me thod Room Air 06/10/25 19:06 MDM - Extremity (Nontraumatic) Medical Decision Making Patient presented stating she just felt off, was having some headache and facial swelling and right sided numbness. Of note is set to have surgery on her right leg for stent placement due to her peripheral artery disease, also has extensive past medical history. Neurologically intact on physical exam, appeared nontoxic her vitals have been stable. Blood work is all baseline, head CT and CTA does not demonstrate any acute hemorrhage or ischemic infarct. No large vessel occlusion. Do not suspect there is any acute etiology going on and she is encouraged to keep her follow-up with with vascular surgery next week. In the meantime she is given general return precautions but otherwise stable for discharge home at this time. Lab Data 06/10/25 21:06/10/25 21: Radiology Impressions Head CTA 06/10/25 20:30 IMPRESSION: 1. No acute intracranial hemorrhage. 2. No evidence of acute ischemic infarct. 3. Moderate stenosis of the right internal carotid artery (50-69% luminal stenosis) according to NASCET calculations. 4. Moderate stenosis of the left internal carotid artery (50-69% luminal stenosis) according to NASCET calculations. 5. No large vessel occlusion. Laboratory Results WBC 4.37 10^3/uL (3.29-11.43) 06/10/25 21: RBC 2.86 10^6/uL (3.85-5.65) L 06/10/25: Hgb 7.60 g/dL (11.27-16.99) L 06/10/25: Hct 25.6 % (36-47) L 06/10/25: MCV 89.5 fl (85-98) 06/10/25 21: MCH 26.6 pg (27-33) L 06/10/25: MCHC 29.7 g/dL (30-55) L 06/10/25: RDW 17.7 % (12.1-15.1) H 06/10/25: Plt Count 322 10^3/cmm (157-399) 06/10/25 21: MPV 9.0 fL (7.4-10.4) 06/10/25 21: Neut % (Auto) 71.0 % 06/10/25: Lymph % (Auto) 20.1 % 06/10/25: [place] % (Auto) 6.2 % 06/10/25: Eos % (Auto) 1.4 % 06/10/25: Baso % (Auto) 1.1 % 06/10/25: Neut # (Auto) 3.10 10^3/uL (1.8-7.7) 06/10/25 21: Lymph # (Auto) 0.9 10^3/uL (0.8-4.8) 06/10/25 21: [place] # (Auto) 0.3 10^3/uL (0.2-0.9) 06/10/25 21: Eos # (Auto) 0.1 10^3/uL (0.0-0.8) 06/10/25 21: Baso # (Auto) 0.1 10^3/uL (0.0-0.1) 06/10/25 21: Nucleated RBC % (auto) 0 % 06/10/25 21: Nucleated RBCs # 0.0 /100WBC 06/10/25 21: Sodium 142 mmol/L (136-145) 06/10/25 21: Potassium 4.5 mmol/L (3.5-5.1) 06/10/25 21: Chloride 110 mmol/L (98-107) H 06/10/25 21: Carbon Dioxide 21 mmol/L (22-29) L 06/10/25 21: Anion Gap 15.5 (5-19) 06/10/25 21: BUN 19 mg/dL (8-23) 06/10/25 21: Creatinine 1.2 mg/dL (0.5-0.9) H 06/10/25 21: GFR Calculation 54.1 mL/min (90-130) L 06/10/25 21: Glucose 87 mg/dL (65-115) 06/10/25 21: Calculated Osmolality 296 mOsm/kg (285-295) H 06/10/25 21: Calcium 9.1 mg/dL (8.5-10.5) 06/10/25 21: Total Bilirubin 0.2 mg/dL (0.15-1.2) 06/10/25 21: AST 17 U/L (0-32) 06/10/25 21: ALT 9 U/L (0-33) 06/10/25 21: Alkaline Phosphatase 82 U/L (35-105) 06/10/25 21: Total Protein 7.3 g/dL (6.6-8.7) 06/10/25 21:01 Albumin 4.4 g/dL (3.5-5.2) 06/10/25 21:01 Globulin 2.9 g/dL (1.3-4.6) 06/10/25 21:01 All radiology interpretation(s) finalized by discharge Discharge Plan Discharge Patient Disposition: Home Clinical Impression: Peripheral vascular disease of extremity with claudication, Weakness Condition: Stable Prescriptions: No Action fluticasone propionate [Allergy Relief (fluticasone)] 50 mcg/actuation spray,suspension 1 spray INTRANASAL DAILY PRN (Reason: allergy symptoms) simvastatin 80 mg tablet 50 mg PO DAILY nitroglycerin [Nitrostat] 0.4 mg tablet, sublingual 0.4 mg SUBLINGUAL ONCE PRN (Reason: chest pain) metoprolol tartrate 25 mg tablet 12.5 mg PO BID metformin 1,000 mg tablet extended release 24hr 1,000 mg PO BID multivitamin [Daily Multi-Vitamin] Tablet 1 tab PO QAM Byetta 10 mcg/dose(250 mcg/mL) 2.4 mL pen injector 10 mcg SUBCUT BID Qty: 2.4 3RF tizanidine 4 mg tablet 4 mg PO BID PRN (Reason: muscle spasticity) Qty: 60 0RF levocetirizine 5 mg tablet 5 mg PO DAILY [employer]Star U-300 Insulin 300 unit/mL (1.5 mL) insulin pen 30 unit SUBCUT DAILY sumatriptan succinate 25 mg tablet PO lisinopril 5 mg tablet PO cilostazol 100 mg tablet PO pantoprazole 40 mg tablet,delayed release (DR/EC) PO buspirone 7.5 mg tablet PO mecobalamin (vitamin B12) [B12 Active] 1,000 mcg tablet,chewable 1,000 mcg PO DAILY escitalopram oxalate 10 mg tablet 10 mg PO DAILY gabapentin 100 mg capsule 100 mg PO BID Qty: 60 4RF tramadol 50 mg tablet 50 mg PO Q6H PRN (Reason: pain) Qty: 30 0RF Discharge Orders: Discharge ED (Routine); Ordered 06/10/25 Ordered By: Colin Barrett Referrals: Deja Hernadez DO [Primary Care Provider, [facility]] Patient Instructions: Patient Portal & Eddie Instructions Activity Restrictions/Additional Instructions: Please keep scheduled follow-up for surgery next week at [facility]. Your lab work and imaging today did not reveal any new abnormality to explain your worsening weakness, however for definitive management of the leg pain and swelling, and any other extremity swelling that may be related to the peripheral artery disease, it is important that you follow-up for surgery that you already have scheduled. To obtain labs and imaging from today in the emergency department, you may call patient records at to obtain these. Please monitor your condition close sleep if you have any worsening return to the emergency department. Print Language: Turkish Coding Level of Care Code ED Spinner Open End for Chg Fwd Documented by User: Fidencio Hyde, DO 06/11/25 03:39 HPI - Extremity Problem General: Chief complaint: Extremity Problem,Nontraumatic Stated complaint: Right side swelling and weak Time Seen by Provider: 06/10/25 19:22 Related Data Home Medications ?Medication ?Instructions ?Recorded ?Confirmed metformin 1,000 mg tablet,extended 1,000 mg PO BID 08/10/19 03/23/25 release 24hr (osmotic) metoprolol tartrate 25 mg tablet 12.5 mg PO BID 08/10/19 03/23/25 multivitamin (Daily Multi-Vitamin 1 tab PO QAM 08/10/19 03/23/25 tablet) nitroglycerin 0.4 mg sublingual 0.4 mg sublingual ONCE PRN chest 08/10/19 03/23/25 tablet (Nitrostat) pain simvastatin 80 mg tablet 50 mg PO DAILY 08/10/19 03/23/25 fluticasone propionate 50 1 spray intranasal DAILY PRN 12/01/22 03/23/25 mcg/actuation nasal allergy symptoms spray,suspension (Allergy Relief (fluticasone)) insulin glargine U-300 conc 300 30 unit SUBCUT DAILY 12/01/22 03/23/25 unit/mL (1.5 mL) subcutaneous pen ([employer] SoloStar U-300 Insulin) levocetirizine 5 mg tablet 5 mg PO DAILY 12/01/22 03/23/25 mecobalamin (vitamin B12) 1,000 1,000 mcg PO DAILY 06/15/23 03/23/25 mcg chewable tablet (B12 Active) escitalopram oxalate 10 mg tablet 10 mg PO DAILY 07/14/23 03/23/25 sumatriptan succinate 25 mg tablet mg PO 04/06/24 03/23/25 lisinopril 5 mg tablet mg PO 12/28/24 03/23/25 buspirone 7.5 mg tablet mg PO 03/23/25 03/23/25 cilostazol 100 mg tablet mg PO 03/23/25 03/23/25 pantoprazole 40 mg tablet,delayed mg PO 03/23/25 03/23/25 release Previous Rx's ?Medication ?Instructions ?Recorded exenatide 10 mcg/dose(250 10 mcg (0.04 mL) SUBCUT BID #2.4 mL 04/29/22 mcg/mL)2.4 mL subcutaneous pen injector ([employer]) tramadol 50 mg tablet 50 mg PO Q6H PRN pain #30 tabs 06/09/22 tizanidine 4 mg tablet 4 mg PO BID PRN muscle spasticity 08/13/22 #60 tabs gabapentin 100 mg capsule 100 mg PO BID pain #60 caps 08/31/23 Allergies Allergy/AdvReac Type Severity Reaction Status Date / Time bupropion Allergy Unknown headache Verified 03/23/25 08:40 fluoxetine (From Prozac) Allergy Unknown anxiety Verified 03/23/25 08:40 lisinopril Allergy Unknown unknown Verified 03/23/25 08:40 pollen extracts Allergy Unknown unknown Verified 03/23/25 08:40 sitagliptin (Januvia) Allergy Unknown unknown Verified 03/23/25 08:40 PFS ED PFSH: Medical History CKD (chronic kidney disease) DJD (degenerative joint disease) Diabetes Hypochromic microcytic anemia Atypical chest pain Atherosclerotic heart disease of [place] coronary artery without angina pectoris Asymptomatic bilateral carotid artery stenosis Varicose ulcer of right lower extremity Hypertension Hyperlipemia, mixed PCO Anemia Peripheral vascular disease of extremity with claudication Diabetes 1.5, managed as type 2 Surgical History H/O esophagogastroduodenoscopy 10/06/19: normal Status post colonoscopy 10/06/19: normal History of hysterectomy (~1982) History of coronary artery stent placement Family History Father Hypertension Diabetes CAD (coronary artery disease) myocardial infarction age 70 Denies family history of Anesthesia complication Bleeding disorder Social History Smoking and tobacco/nicotine status: never used tobacco/nicotine Quit status (tobacco/nicotine): has quit using Former quit date comment: Quit in the s, smoked x 10 years Second hand smoke exposure: No Alcohol intake: never Substance/Drug Use: never Adopted: No Caregiver/support person: Yes Lives independently: Yes Household members: none Housing: House Marital status: Single service: No Current occupational status: disabled Current occupational exposures/hazards: No Pets and animals: No Sexually active: No Do you think of yourself as: Straight/Heterosexual Current gender identity: Female Bianka/Denominational: None Special bianka needs: No Agree to transfusion: No Course Vital Signs: Vital signs: Vital Signs Temperature 97.7 F 06/10/25 19:06 Pulse Rate 86 06/10/25 23:09 Respiratory Rate 16 06/10/25 23:09 Blood Pressure 137/74 06/10/25 23:09 Pulse Oximetry 98 06/10/25 23:09 Oxygen Delivery Me thod Room Air 06/10/25 19:06 MDM - Extremity (Nontraumatic) Medical Decision Making Patient presented stating she just felt off, was having some headache and facial swelling and right sided numbness. Of note is set to have surgery on her right leg for stent placement due to her peripheral artery disease, also has extensive past medical history. Neurologically intact on physical exam, appeared nontoxic her vitals have been stable. Blood work is all baseline, head CT and CTA does not demonstrate any acute hemorrhage or ischemic infarct. No large vessel occlusion. Do not suspect there is any acute etiology going on and she is encouraged to keep her follow-up with with vascular surgery next week. In the meantime she is given general return precautions but otherwise stable for discharge home at this time. Patient originally seen by Mr. Arnold PA-C. I agree with his history, evaluation, and management. Lab Data 06/10/25 21:06/10/25 21:01 Radiology Impressions Head CTA 06/10/25 20:30 IMPRESSION: 1. No acute intracranial hemorrhage. 2. No evidence of acute ischemic infarct. 3. Moderate stenosis of the right internal carotid artery (50-69% luminal stenosis) according to NASCET calculations. 4. Moderate stenosis of the left internal carotid artery (50-69% luminal stenosis) according to NASCET calculations. 5. No large vessel occlusion. Laboratory Results WBC 4.37 10^3/uL (3.29-11.43) 06/10/25 21: RBC 2.86 10^6/uL (3.85-5.65) L 06/10/25: Hgb 7.60 g/dL (11.27-16.99) L 06/10/25: Hct 25.6 % (36-47) L 06/10/25: MCV 89.5 fl (85-98) 06/10/25: MCH 26.6 pg (27-33) L 06/10/25: MCHC 29.7 g/dL (30-55) L 06/10/25: RDW 17.7 % (12.1-15.1) H 06/10/25: Plt Count 322 10^3/cmm (157-399) 06/10/25: MPV 9.0 fL (7.4-10.4) 06/10/25 21: Neut % (Auto) 71.0 % 06/10/25: Lymph % (Auto) 20.1 % 06/10/25 21: [place] % (Auto) 6.2 % 06/10/25 21: Eos % (Auto) 1.4 % 06/10/25: Baso % (Auto) 1.1 % 06/10/25: Neut # (Auto) 3.10 10^3/uL (1.8-7.7) 06/10/25 21: Lymph # (Auto) 0.9 10^3/uL (0.8-4.8) 06/10/25 21: [place] # (Auto) 0.3 10^3/uL (0.2-0.9) 06/10/25 21:01 Eos # (Auto) 0.1 10^3/uL (0.0-0.8) 06/10/25 21:01 Baso # (Auto) 0.1 10^3/uL (0.0-0.1) 06/10/25 21:01 Nucleated RBC % (auto) 0 % 06/10/25 21: Nucleated RBCs # 0.0 /100WBC 06/10/25 21:01 Sodium 142 mmol/L (136-145) 06/10/25 21: Potassium 4.5 mmol/L (3.5-5.1) 06/10/25 21: Chloride 110 mmol/L (98-107) H 06/10/25 21: Carbon Dioxide 21 mmol/L (22-29) L 06/10/25 21: Anion Gap 15.5 (5-19) 06/10/25 21: BUN 19 mg/dL (8-23) 06/10/25 21: Creatinine 1.2 mg/dL (0.5-0.9) H 06/10/25 21:01 GFR Calculation 54.1 mL/min (90-130) L 06/10/25 21: Glucose 87 mg/dL (65-115) 06/10/25 21: Calculated Osmolality 296 mOsm/kg (285-295) H 06/10/25 21: Calcium 9.1 mg/dL (8.5-10.5) 06/10/25 21: Total Bilirubin 0.2 mg/dL (0.15-1.2) 06/10/25 21: AST 17 U/L (0-32) 06/10/25 21: ALT 9 U/L (0-33) 06/10/25 21:01 Alkaline Phosphatase 82 U/L (35-105) 06/10/25 21: Total Protein 7.3 g/dL (6.6-8.7) 06/10/25 21: Albumin 4.4 g/dL (3.5-5.2) 06/10/25 21: Globulin 2.9 g/dL (1.3-4.6) 06/10/25 21:01 Discharge Plan Discharge Patient Disposition: Home Clinical Impression: Peripheral vascular disease of extremity with claudication, Weakness Condition: Stable Prescriptions: No Action fluticasone propionate [Allergy Relief (fluticasone)] 50 mcg/actuation spray,suspension 1 spray INTRANASAL DAILY PRN (Reason: allergy symptoms) simvastatin 80 mg tablet 50 mg PO DAILY nitroglycerin [Nitrostat] 0.4 mg tablet, sublingual 0.4 mg SUBLINGUAL ONCE PRN (Reason: chest pain) metoprolol tartrate 25 mg tablet 12.5 mg PO BID metformin 1,000 mg tablet extended release 24hr 1,000 mg PO BID multivitamin [Daily Multi-Vitamin] Tablet 1 tab PO QAM Byetta 10 mcg/dose(250 mcg/mL) 2.4 mL pen injector 10 mcg SUBCUT BID Qty: 2.4 3RF tizanidine 4 mg tablet 4 mg PO BID PRN (Reason: muscle spasticity) Qty: 60 0RF levocetirizine 5 mg tablet 5 mg PO DAILY [employer] SoloStar U-300 Insulin 300 unit/mL (1.5 mL) insulin pen 30 unit SUBCUT DAILY sumatriptan succinate 25 mg tablet PO lisinopril 5 mg tablet PO cilostazol 100 mg tablet PO pantoprazole 40 mg tablet,delayed release (DR/EC) PO buspirone 7.5 mg tablet PO mecobalamin (vitamin B12) [B12 Active] 1,000 mcg tablet,chewable 1,000 mcg PO DAILY escitalopram oxalate 10 mg tablet 10 mg PO DAILY gabapentin 100 mg capsule 100 mg PO BID Qty: 60 4RF tramadol 50 mg tablet 50 mg PO Q6H PRN (Reason: pain) Qty: 30 0RF Discharge Orders: Discharge ED (Routine); Ordered 06/10/25 Ordered By: Colin Barrett Referrals: Deja Hernadez DO [Primary Care Provider, [facility]] Patient Instructions: Patient Portal & Eddie Instructions Activity Restrictions/Additional Instructions: Please keep scheduled follow-up for surgery next week at [facility]. Your lab work and imaging today did not reveal any new abnormality to explain your worsening weakness, however for definitive management of the leg pain and swelling, and any other extremity swelling that may be related to the peripheral artery disease, it is important that you follow-up for surgery that you already have scheduled. To obtain labs and imaging from today in the emergency department, you may call patient records at to obtain these. Please monitor your condition close sleep if you have any worsening return to the emergency department. Print Language: Turkish Coding Level of Care Code ED Spinner Open End for Sheldon Villar
[2025-06-10 23:09] VITALS: BP 137/74; PULSE 86; RESP 16; O2SAT 98
== END 2025-06-10 23:09 | disposition home or self-care (01) ==
PROVIDERS: Emergency Provider Physician Assistant; PCP Family Medicine
DX: I73.9 Peripheral vascular disease, unspecified (principal); I65.23 Occlusion and stenosis of bilateral carotid arteries; R53.1 Weakness; Z79.84 Long term (current) use of oral hypoglycemic drugs; Z87.891 Personal history of nicotine dependence; I25.10 Atherosclerotic heart disease of native coronary artery without angina pectoris; E78.2 Mixed hyperlipidemia; E13.22 Other specified diabetes mellitus with diabetic chronic kidney disease; I12.9 Hypertensive chronic kidney disease with stage 1 through stage 4 chronic kidney disease, or unspecified chronic kidney disease; N18.9 Chronic kidney disease, unspecified
CPT/HCPCS: 36415; 70496; 80053; 85025; 99285

== ENCOUNTER 2025-06-14 10:46 | Oncology outpatient (recurring) (ONCR) | payer MEDICARE, SELFPAY ==
[2025-06-14 11:22] LABS: Hematocrit 28.8 % (36-47); Hemoglobin 8.50 g/dL (11.27-16.99); Mean Corpuscular HGB Conc 29.5 g/dL (30-55); Mean Corpuscular Hemoglobin 25.9 pg (27-33); Mean Corpuscular Volume 87.8 fl (85-98); Nucleated Red Blood Cells % 0 %; Platelet Count 293 10^3/cmm (157-399); Red Blood Count 3.28 10^6/uL (3.85-5.65); White Blood Count 3.00 10^3/uL (3.29-11.43)
[2025-06-14 11:38] LABS: Alanine Aminotransferase 10 U/L (0-33); Albumin Level 4.7 g/dL (3.5-5.2); Alkaline Phosphatase 88 U/L (35-105); Anion Gap 16.3 (5-19); Aspartate Amino Transferase 19 U/L (0-32); Blood Urea Nitrogen 15 mg/dL (8-23); Calcium 9.2 mg/dL (8.5-10.5); Carbon Dioxide 22 mmol/L (22-29); Chloride 108 mmol/L (98-107); Globulin 3.0 g/dL (1.3-4.6); Glucose 83 mg/dL (65-115); Osmolality Calculated 294 mOsm/kg (285-295); Potassium 4.3 mmol/L (3.5-5.1); Sodium 142 mmol/L (136-145); Total Protein 7.7 g/dL (6.6-8.7)
[2025-06-14 12:03] LABS: Ferritin 30 ng/mL (15-150); Iron 24 ug/dL (37-145); Total Iron Binding Capacity 379 mcg/dl; Unsaturated Iron Binding 355 ug/dL (112-347)
[2025-06-14 12:19] LABS: Vitamin B12 1241 pg/mL (232-1245)
[2025-06-20 12:25] LABS: Zinc Level, Serum or Plasma 63 mcg/dL (60-130)
== END 2025-07-02 23:59 | disposition home or self-care (01) ==
LOC: ONCMED 10:47
PROVIDERS: PCP Family Medicine; Visit Provider Internal Medicine
DX: D50.0 Iron deficiency anemia secondary to blood loss (chronic) (principal); D50.9 Iron deficiency anemia, unspecified; N18.9 Chronic kidney disease, unspecified; Z79.899 Other long term (current) drug therapy; Z87.891 Personal history of nicotine dependence
CPT/HCPCS: 36415; 80053; 82525; 82607; 82668; 82728; 82746; 83010; 83540; 83550; 83615; 84630; 85025; 85045; 86431; 99213

== ENCOUNTER 2025-06-30 12:05 | Outpatient (CLI) | payer MEDICARE, SELFPAY ==
--- NOTE | 2025-06-30 12:35 | MM_ITS ---
WS: [id number] BILATERAL 3D TOMOSYNTHESIS DIGITAL SCREENING MAMMOGRAPHY WITH CAD CLINICAL INFORMATION: ANNUAL SCREENING HISTORY: Screening mammogram. No current complaints. COMPARISON: 2023 TECHNIQUE: Bilateral CC and MLO views. FINDINGS: Scattered fibroglandular densities bilaterally. No suspicious focal mass, asymmetry, calcifications, or architectural distortion. No evidence of malignancy. Vascular calcification. Lucent centered calcification LEFT breast MM/MM scr BI tomosynthesis [id number] IMPRESSION: DENSITY: There are scattered areas of fibroglandular density. BI-RADS: 2 - Benign. FOLLOW UP: 1 Year Follow-up Recommend return to annual screening mammography.
== END 2025-06-30 12:06 | disposition home or self-care (01) ==
LOC: RAD 12:06
PROVIDERS: PCP Family Medicine; Visit Provider Family Medicine
DX: Z12.31 Encounter for screening mammogram for malignant neoplasm of breast (principal); R92.323 Mammographic fibroglandular density, bilateral breasts; R92.1 Mammographic calcification found on diagnostic imaging of breast
CPT/HCPCS: 77063; 77067

== ENCOUNTER 2025-07-20 09:01 | Oncology outpatient (recurring) (ONCR) | payer MEDICARE, SELFPAY ==
[2025-07-13 09:31] LABS: Hematocrit 29.4 % (36-47); Hemoglobin 9.00 g/dL (11.27-16.99); Mean Corpuscular HGB Conc 30.6 g/dL (30-55); Mean Corpuscular Hemoglobin 25.6 pg (27-33); Mean Corpuscular Volume 83.8 fl (85-98); Nucleated Red Blood Cells % 0 %; Platelet Count 278 10^3/cmm (157-399); Red Blood Count 3.51 10^6/uL (3.85-5.65); White Blood Count 4.68 10^3/uL (3.29-11.43)
[2025-07-13 09:47] LABS: Alanine Aminotransferase 11 U/L (0-33); Albumin Level 3.9 g/dL (3.5-5.2); Alkaline Phosphatase 108 U/L (35-105); Aspartate Amino Transferase 21 U/L (0-32); Blood Urea Nitrogen 19 mg/dL (8-23); Calcium 9.0 mg/dL (8.5-10.5); Carbon Dioxide 23 mmol/L (22-29); Chloride 107 mmol/L (98-107); Globulin 3.3 g/dL (1.3-4.6); Glucose 171 mg/dL (65-115); Osmolality Calculated 298 mOsm/kg (285-295); Sodium 141 mmol/L (136-145); Total Protein 7.2 g/dL (6.6-8.7)
[2025-07-13 09:58] LABS: Anion Gap 15.6 (5-19); Potassium 4.6 mmol/L (3.5-5.1)
[2025-07-13 10:17] VITALS: BP 146/77; PULSE 75; RESP 16; TEMP 35.9; O2SAT 98
[2025-07-13] MEDS: ferric carboxy (PYXIS) 750 MG in sodium chloride 0.9% (100 ml) 100 ML 345 MG IV (10:31)
[2025-07-13 10:56] VITALS: BP 146/79; PULSE 85; RESP 16; TEMP 36.4; O2SAT 99
[2025-07-20 09:12] VITALS: BP 125/73; PULSE 86; RESP 16; TEMP 35.9; O2SAT 99
[2025-07-20] MEDS: ferric carboxy (PYXIS) 750 MG in sodium chloride 0.9% (100 ml) 100 ML 345 MG IV (09:27)
== END 2025-08-02 23:59 | disposition home or self-care (01) ==
PROVIDERS: Internal Medicine; PCP Family Medicine; Visit Provider Nurse Practitioner Family
DX: D50.9 Iron deficiency anemia, unspecified (principal); N18.9 Chronic kidney disease, unspecified; Z79.899 Other long term (current) drug therapy
CPT/HCPCS: 80053; 85025; 96365; 99213; J1439